=== PATIENT | female | born 1945 | race African-American/Black ===

== ENCOUNTER 2020-05-03 14:45 | Outpatient (CLI) | payer OTHER, SELFPAY ==
--- NOTE | ~2020-05-03 | MM_ITS ---
EXAMINATION: MM screening letty BI w robson HISTORY: Screening TECHNIQUE: Craniocaudal and mediolateral oblique 3-D tomosynthesis images were obtained and synthetic 2-D images were generated. CAD analysis was submitted and interpreted. COMPARISON: Comparison to multiple prior studies sequentially, with oldest reviewed study dated 02/19. BREAST PARENCHYMAL COMPOSITION: The breasts are heterogeneously dense, which may obscure small masses . FINDINGS: There are stable benign bilateral breast calcifications. There is no evidence of suspicious mass, calcification, or architectural distortion to suggest malignancy in either breast. There has b een no suspicious interval change. IMPRESSION: 1. No mammographic evidence of malignancy. 2. Recommend routine screening mammography in one year. BI-RADS Category 2: Benign finding(s). Reviewed, dictated and finalized at location A. ILIZER OPERATOR
== END 2020-05-03 14:46 | disposition home or self-care (01) ==
LOC: ANHIMG 14:50
PROVIDERS: PCP Internal Medicine; Visit Provider Internal Medicine
DX: Z12.31 Encounter for screening mammogram for malignant neoplasm of breast (principal)
CPT/HCPCS: 77063; 77067

== ENCOUNTER 2021-01-31 11:54 | Emergency (ER) | payer OTHER, SELFPAY ==
--- NOTE | ~2021-01-31 | CT_ITS ---
EXAMINATION: CTA chest PE protocol DATE: 02/01/2021 00:18 INDICATION: Chest pain. Shortness of breath. TECHNIQUE: Computed tomography angiography (CTA) of the chest was performed with 100 mL Omnipaque-350 intravenous contrast timed to evaluate the pulmonary arteries. Coronal maximum intensity projection 3D-reconstructions were created by the technologist. Automated exposure control and iterative reconst ruction technique were employed. The dose-length product was 453.90 mGy-cm. COMPARISON: CT abdomen and pelvis 11/13/2018 FINDINGS: There is mild atelectasis bilaterally. No pleural effusion. Cardiomegaly is noted. There ar e coronary artery calcifications. No pericardial effusion. There is no pulmonary embolus. Calcified l eft hilar lymph nodes are consistent with old granulomatous disease. There is mild right hilar and me diastinal lymphadenopathy, likely reactive. There are bridging endplate osteophytes at multiple level s in the spine, consistent with diffuse idiopathic skeletal hyperostosis (DISH). IMPRESSION: 1. No pulmonary embolus. Reviewed, dictated and finalized at location A. IMPRESSION: 1. No pulmonary embolus.
--- NOTE | ~2021-01-31 | XR_ITS ---
EXAMINATION: XR chest 2V DATE: 01/31/2021 12:13 INDICATION: Chest pain. TECHNIQUE: Frontal and lateral views of the chest were obtained. COMPARISON: Chest 2 views 10/16/2018 FINDINGS: There is mild atelectasis in left lower lung zone. No pleural effusion or pneumothorax. The heart size is normal. There are suture anchors in right humeral head. There is screw and wire fixati on of right acromion. IMPRESSION: 1. Mild atelectasis in left lower lung zone. Reviewed, dictated and finalized at location A.
--- NOTE | 2021-01-31 11:56 | ECG_ITS ---
Measurements Intervals [place] Rate: 51 P: 49 IN: 178 QRS: -13 QRSD: 103 T: 22 QT: 448 QTc: 413 Interpretive Statements SINUS BRADYCARDIA WITH SINUS ARRHYTHMIA BORDERLINE ECG Electronically Signed On 01-31-2021 14:03:00 CDT by Donn Oneil D.O.
[2021-01-31 12:08] VITALS: BP 148/46; PULSE 55; RESP 14; TEMP 36.8; O2SAT 99
[2021-01-31 12:44] LABS: Basophils Percent Auto 0.5 % (0.2-1.2); Eosinophils Absolute Auto 0.1 K/mm3 (0-0.3); Hemoglobin 9.2 g/dL (12.0-15.0); Immature Granulocyte Absolute 0.01 K/mm3 (0.00-0.031); Immature Granulocyte Percent A 0.3 % (0-0.5); Lymphocytes Absolute Auto 1.35 K/mm3 (0.9-3.2); Lymphocytes Percent Auto 33.8 % (18.3-44.2); Mean Corpuscular HGB Conc 30.7 g/dl (32-36); Mean Corpuscular Hemoglobin 29.1 pg (26-34); Mean Corpuscular Volume 94.9 fl (80-100); Mean Platelet Volume 10.1 fl (7.4-10.4); Monocytes Absolute Auto 0.5 K/mm3 (0.1-0.6); Monocytes Percent Auto 11.3 % (2.6-8.5); Neutrophils Absolute Auto 2.1 K/mm3 (1.3-6.7); Neutrophils Percent Auto 52.1 % (45.5-73.1); Platelet Count Result 223 k/mm3 (150-375); Red Blood Count 3.16 M/mm3 (4.2-5.4)
[2021-01-31 13:00] LABS: INR 1.1; Prothrombin Time 13.8 Seconds (11.1-14.7)
[2021-01-31 13:01] LABS: Partial Thromboplastin Time 29.3 SECONDS (22.3-36.8)
[2021-01-31 13:33] LABS: Anion Gap 7 mmol/L (8-16); Blood Urea Nitrogen 25 mg/dL (7-17); Calcium 9.5 mg/dL (8.4-10.2); Carbon Dioxide 29 mmol/L (22-30); Chloride 104 mmol/L (98-107); Estimated CRCL calculation 46 ml/min; Estimated Glomerular Filt Rate 59; Glucose 84 mg/dL (65-110); Potassium 4.6 mmol/L (3.4-5.0); Sodium 140 mmol/L (137-145)
[2021-01-31 13:45] LABS: Troponin I < 0.012 ng/mL (0.000-0.034)
[2021-01-31 16:28] VITALS: BP 151/54; PULSE 46; RESP 16; TEMP 36.5; O2SAT 95
[2021-01-31 18:31] VITALS: BP 150/48; PULSE 42; RESP 18; TEMP 36.3; O2SAT 98
[2021-01-31 19:08] LABS: Troponin I < 0.012 ng/mL (0.000-0.034)
--- NOTE | 2021-01-31 20:07 | ED.GENADULT ---
HPI - General Adult General Chief complaint: Chest Pain Stated complaint: chest pain x 1 week Time Seen by Provider: 01/31/21 19:32 Source: patient History of Present Illness HPI narrative: Patient is a 75 y/o female complaining of intermittent chest pain starting 1 week ago. She describes her chest pain as a discomfort . She rates it as 3-4/10. There is no known alleviating or exacerbating factor. She has no fever, cough or SOB. Related Data Home Medications Medication Instructions Recorded Confirmed aspirin 81 mg tablet,delayed 81 mg PO DAILY 04/27/19 11/23/20 release Allergies Allergy/AdvReac Type Severity Reaction Status Date / Time Penicillins Allergy Unknown Verified 08/02/16 16:46 Sulfa (Sulfonamide Allergy Unknown Verified 08/02/16 16:46 Antibiotics) Review of Systems Constitutional: Constitutional: Denies chills, Denies fever(s), Denies headache(s) and Denies weakness Eyes: Eyes: Denies blurry vision ENT: Denies headache(s) and Denies neck pain Cardiovascular: Cardiovascular: Reports chest pain and Denies dyspnea Respiratory: Respiratory: Denies cough and Denies dyspnea Gastrointestinal: Gastrointestinal: Denies abdominal pain, Denies diarrhea, Denies nausea and Denies vomiting Genitourinary: Genitourinary: Denies hematuria and Denies dysuria Musculoskeletal: Musculoskeletal: Denies back pain and Denies neck pain Neurologic: Denies headache(s) and Denies weakness PMFSH Family History Family History Mother Hypertension, Onset Age: 81 Family history of arthritis, Onset Age: 81 Family history of type 2 diabetes mellitus, Onset Age: 81 Family history of congestive heart failure, Onset Age: 81 Father Hypertension, Onset Age: 80 Family history of type 2 diabetes mellitus, Onset Age: 80 Sibling Hypertension Cerebrovascular accident Family history of type 2 diabetes mellitus Social History Social History Smoking status: Never smoker Second hand tobacco smoke exposure: No Alcohol intake: never Exam Const: General: no acute distress and well developed Orientation/consciousness: oriented to person, oriented to place, oriented to time and patient oriented x3 HENMT: Head: normocephalic Ears: external ears normal General nose exam: Normal external nose present Eyes: General: appearance normal, both eyes and all related structures Conjunctivae: conjunctivae normal Neck: Neck: normal visual inspection and full ROM Chest: Chest palpation & inspection: normal inspection of the chest and no tenderness Resp: Effort & Inspection: normal respiratory effort Auscultation: clear to auscultation bilaterally Cardio: Rate: bradycardic Rhythm: regular rhythm GI: GI Palp: No abdominal tenderness and Yes Soft to palpation Skin: General skin exam: normal color and turgor normal Neuro: General: oriented to person, oriented to place, oriented to time and patient oriented x3 Cognition (Neuro): normal cognition Extrem: General: normal to inspection, full ROM and no pedal edema Psych: Appearance: grossly normal Mental Status: mental status grossly normal Affect: normal affect Course Vital Signs Vital signs: Vital Signs Temperature 36.8 C 01/31/21 12:08 Pulse Rate 55 L 01/31/21 12:08 Respiratory Rate 14 01/31/21 12:08 Blood Pressure 148/46 H 01/31/21 12:08 Pulse Oximetry 99 01/31/21 12:08 Temperature 36.3 C L 01/31/21 18:31 Pulse Rate 68 02/01/21 03:07 Respiratory Rate 18 02/01/21 03:07 Blood Pressure 144/63 H 02/01/21 03:07 Pulse Oximetry 98 02/01/21 03:07 Medical Decision Making Vital Signs Vital Signs: Vital Signs Temperature 36.8 C 01/31/21 12:08 Pulse Rate 55 L 01/31/21 12:08 Respiratory Rate 14 01/31/21 12:08 Blood Pressure 148/46 H 01/31/21 12:08 Pulse Oximetry 99 01/31/21 12:08
[2021-01-31 20:12] LABS: Troponin I < 0.012 ng/mL (0.000-0.034)
[2021-01-31 20:21] VITALS: BP 189/62; PULSE 45; RESP 16; O2SAT 100
[2021-01-31 20:26] LABS: D Dimer 0.66 ug/mL (<0.48)
[2021-01-31 21:10] VITALS: BP 147/60; PULSE 62; RESP 18; O2SAT 97
[2021-02-01 03:07] VITALS: BP 144/63; PULSE 68; RESP 18; O2SAT 98
== END 2021-02-01 03:10 | disposition home or self-care (01) ==
PROVIDERS: Emergency Medicine; Emergency Provider Emergency Medicine; PCP Internal Medicine
DX: R07.9 Chest pain, unspecified (principal)
CPT/HCPCS: 36415; 71046; 71275; 80048; 84484; 85025; 85380; 85610; 85730; 93005; 99284; Q9967

== ENCOUNTER 2021-04-19 09:48 | Outpatient (CLI) | payer OTHER, SELFPAY ==
[2021-04-19 10:49] LABS: Uric Acid 6.2 mg/dL (2.5-7.5)
== END 2021-04-19 09:49 | disposition home or self-care (01) ==
PROVIDERS: PCP Internal Medicine; Visit Provider Internal Medicine
DX: Z13.89 Encounter for screening for other disorder (principal)
CPT/HCPCS: 36415; 84550

== ENCOUNTER 2021-05-11 16:05 | Outpatient (CLI) | payer OTHER, SELFPAY ==
--- NOTE | ~2021-05-11 | MM_ITS ---
EXAMINATION: MM screening letty BI w robson HISTORY: Screening TECHNIQUE: Craniocaudal and mediolateral oblique 3-D tomosynthesis images were obtained and synthetic 2-D images were generated. CAD analysis was submitted and interpreted. COMPARISON: Comparison to multiple prior studies sequentially, with oldest reviewed study dated 07/21. BREAST PARENCHYMAL COMPOSITION: The breasts are heterogeneously dense, which may obscure small masses . FINDINGS: There are developing punctate calcifications in the upper outer quadrant of the right breas t posteriorly. The left breast is stable without evidence for malignancy. IMPRESSION: 1. Developing clustered punctate calcifications upper outer quadrant of the right breast posteriorly. 2. Magnification views are recommended. BI-RADS Category 0: Incomplete: Needs additional imaging evaluation. Reviewed, dictated and finalized at location A. MILL SUPERVISOR IMPRESSION: 1. Developing clustered punctate calcifications upper outer quadrant of the rig ht breast posteriorly. 2. Magnification views are recommended. BI-RADS Category 0: Incomplete: Needs additional imaging evaluation.
== END 2021-05-11 16:06 | disposition home or self-care (01) ==
LOC: ANHIMG 16:07
PROVIDERS: PCP Internal Medicine; Visit Provider Internal Medicine
DX: Z12.31 Encounter for screening mammogram for malignant neoplasm of breast (principal); R92.8 Other abnormal and inconclusive findings on diagnostic imaging of breast
CPT/HCPCS: 77063; 77067

== ENCOUNTER 2021-06-06 12:01 | Outpatient (CLI) | payer OTHER, SELFPAY ==
--- NOTE | ~2021-06-06 | MM_ITS ---
EXAMINATION: MM diagnostic mammo unilat RT HISTORY: Follow-up right breast calcifications TECHNIQUE: Additional 3-D tomosynthesis images of the right breast were performed and synthetic 2-D i mages were generated. CAD analysis was submitted and interpreted. COMPARISON: Comparison to multiple prior studies sequentially, with oldest reviewed study dated 08/17. BREAST PARENCHYMAL COMPOSITION: Breast composed of scattered areas of fibroglandular density. FINDINGS: There is a new cluster of indeterminate calcifications centered in the upper outer quadrant of the right breast posteriorly. There are no suspicious masses or architectural distortion. IMPRESSION: 1. New cluster of indeterminate right breast calcifications, upper outer quadrant. 2. Stereotactic right breast biopsy recommended. BI-RADS category 4, suspicious findings. Reviewed, dictated and finalized at location A. ITE ADMIN IMPRESSION: 1. New cluster of indeterminate right breast calcifications, upper outer quadra nt. 2. Stereotactic right breast biopsy recommended. BI-RADS category 4, suspicious findings.
== END 2021-06-06 12:02 | disposition home or self-care (01) ==
LOC: ANHIMG 12:05
PROVIDERS: PCP Internal Medicine; Visit Provider Internal Medicine
DX: R92.1 Mammographic calcification found on diagnostic imaging of breast (principal); R92.8 Other abnormal and inconclusive findings on diagnostic imaging of breast
CPT/HCPCS: 77065

== ENCOUNTER 2021-06-16 10:13 | Outpatient (CLI) | payer OTHER, SELFPAY ==
--- NOTE | ~2021-06-16 | MM_ITS ---
MM stereotactic bx RT, MM post biopsy diagnostic RT, MM stereotactic specimen RT EXAMINATION: MM ster eotactic bx RT, MM post biopsy diagnostic RT, MM stereotactic specimen RT DATE: Raymundo Downs M.D. INDICATION: Abnormal calcifications in the right breast. Stereotactic core biopsy is requested evalu ate for malignancy. TECHNIQUE AND FINDINGS: The risks and potential benefits of the procedure were discussed with the patient and written informe d consent was obtained. The patient was placed in the prone position clustered at the table with the right breast in craniocaudal compression, and the area of interest was localized and targeted utiliz ing digital imaging with stereotaxis. After sterile preparation of the skin, 1% lidocaine was utilized for local anesthesia at the skin pun cture site and 1% lidocaine with epinephrine was utilized for deeper local anesthesia/is about the bi opsy site. A 9G [email or web address] vacuum assisted biopsy needle was advanced to the level of the calcification o f interest from a cephalad approach utilizing stereotactic guidance and a total of 6 tissue core biop sies were obtained. A specimen radiograph demonstrates that the calcifications of interest are included within the tissue cores. A tissue marker clip was then placed at the biopsy site. The needle was removed and hemosta sis was achieved. The patient tolerated the procedure well and there is no evidence of significant i mmediate complication. The patient was given verbal as well as written postprocedural instructions p rior to discharge from the department. Tissue cores were submitted to surgical pathology for histolo gic analysis. A 2-view right unilateral digital mammogram was obtained post procedure and this demonstrates that th e tissue marker clip is in expected position.] IMPRESSION: 1. Successful stereotactic biopsy of calcifications in the upper outer quadrant of the right breast, followed by tissue marker clip placement. Please refer to pathology report for histologic analysis. Reviewed, dictated and finalized at location A. CAL SOCIAL WORKER IMPRESSION: 1. Successful stereotactic biopsy of calcifications in the upper outer quadran t of the right breast, followed by tissue marker clip placement. Please refer to pathology report for histologic analysis. IMPRESSION: 1. Successful stereotactic biopsy of calcifications in the upper outer quadran t of the right breast, followed by tissue marker clip placement. Please refer to pathology report for histologic analysis.
== END 2021-06-16 10:14 | disposition home or self-care (01) ==
PROVIDERS: PCP Internal Medicine; Visit Provider Internal Medicine
DX: R92.8 Other abnormal and inconclusive findings on diagnostic imaging of breast (principal); D05.11 Intraductal carcinoma in situ of right breast
CPT/HCPCS: 19081; 77065; 88305; 88342; A4648

== ENCOUNTER → 2021-07-18 11:54 | Outpatient (CLI) | payer OTHER, SELFPAY ==
--- NOTE | ~2021-07-18 | XR_ITS ---
EXAMINATION: XR knee RT 3V DATE: 07/18/2021 12:31 INDICATION: Right knee pain TECHNIQUE: Three views of the right knee were obtained. COMPARISON: None. FINDINGS: Alignment is normal. No fracture or osteochondral lesion. There is advanced osteoarthritis of the lateral compartment and moderate osteoarthritis of the medial and patellofemoral compartments. No joint effusion/synovitis. Soft tissues are unremarkable. IMPRESSION: 1. 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 Reviewed, dictated and finalized at location F. P CUTTER
--- NOTE | ~2021-07-18 | XR_ITS ---
EXAMINATION: XR hand LT min 3V INDICATION: Left hand pain and swelling TECHNIQUE: Three views of the left hand are obtained on four radiographs. COMPARISON: None available FINDINGS: There is no fracture, dislocation, or subluxation. There is moderate osteoarthritis of mult iple interphalangeal joints as well as at the first carpometacarpal joint. Soft tissues are unremarka ble. IMPRESSION: 1. Polyarticular osteoarthritis. Reviewed, dictated and finalized at location F. OND SETTER
--- NOTE | ~2021-07-18 | XR_ITS ---
EXAMINATION: XR knee LT 3V DATE: 07/18/2021 12:30 INDICATION: Left knee pain TECHNIQUE: Three views of the left knee were obtained. COMPARISON: None. FINDINGS: Alignment is normal. No fracture or osteochondral lesion. There is moderate osteoarthritis of the medial and lateral compartments and severe osteoarthritis of the lateral patellofemoral compar tment. No joint effusion/synovitis. Calcified atherosclerosis is noted. IMPRESSION: 1. Tricompartmental osteoarthritis, severe in the lateral patellofemoral compartment. Reviewed, dictated and finalized at location F. ESSIONAL SYSTEM ADMINISTRATOR IMPRESSION: 1. Tricompartmental osteoarthritis, severe in the lateral patellofemoral compar tment.
== END ==
PROVIDERS: PCP Internal Medicine; Visit Provider Internal Medicine
DX: M19.042 Primary osteoarthritis, left hand (principal); M17.0 Bilateral primary osteoarthritis of knee
CPT/HCPCS: 73130; 73562

== ENCOUNTER 2021-11-10 09:07 | Outpatient (CLI) | payer OTHER, SELFPAY ==
[2021-11-10 09:24] LABS: Basophils Percent Auto 0.5 % (0.2-1.2); Eosinophils Absolute Auto 0.1 K/mm3 (0-0.3); Eosinophils Percent Auto 2.2 % (0-4.4); Hematocrit 32.2 % (37.0-47.0); Hemoglobin 9.9 g/dL (12.0-15.0); Lymphocytes Absolute Auto 1.01 K/mm3 (0.9-3.2); Lymphocytes Percent Auto 27.5 % (18.3-44.2); Mean Corpuscular HGB Conc 30.7 g/dl (32-36); Mean Corpuscular Hemoglobin 29.1 pg (26-34); Mean Corpuscular Volume 94.7 fl (80-100); Mean Platelet Volume 9.7 fl (7.4-10.4); Monocytes Absolute Auto 0.4 K/mm3 (0.1-0.6); Monocytes Percent Auto 10.6 % (2.6-8.5); Neutrophils Absolute Auto 2.2 K/mm3 (1.3-6.7); Neutrophils Percent Auto 59.2 % (45.5-73.1); Platelet Count Result 206 k/mm3 (150-375); Red Cell Distribution Width 14.7 % (11.5-14.5); White Blood Count 3.7 K/mm3 (4.5-10.0)
[2021-11-10 10:47] LABS: Immature Reticulocyte Fraction 11.6 % (3.0-15.9); Reticulocyte Hemoglobin Conten 32.7 pg (28.2-35.7); Reticulocyte Percent 1.24 % (0.7-4.3); Reticulocytes Absolute 0.04 B/L (32.2-175.7)
[2021-11-10 12:44] LABS: Iron 66 ug/dL (37-170)
[2021-11-10 12:53] LABS: Alanine Aminotransferase 10 U/L (6-35); Alkaline Phosphatase 70 U/L (38-126); Anion Gap 8 mmol/L (8-16); Aspartate Amino Transferase 22 U/L (14-36); Bilirubin,Total 0.2 mg/dL (0.2-1.3); Blood Urea Nitrogen 26 mg/dL (7-17); Calcium 9.4 mg/dL (8.4-10.2); Carbon Dioxide 29 mmol/L (22-30); Chloride 101 mmol/L (98-107); Estimated Glomerular Filt Rate > 60; Glucose 119 mg/dL (65-110); Lactate Dehydrogenase 492 U/L (313-618); Percent Iron Saturation 20 % (20-50); Potassium 4.8 mmol/L (3.4-5.0); Sodium 138 mmol/L (137-145)
[2021-11-10 14:16] LABS: Folic Acid > 20.0 ng/mL (2.76->20); Vitamin B12 > 1000.0 pg/mL (239-931)
== END 2021-11-10 09:08 | disposition home or self-care (01) ==
PROVIDERS: PCP Internal Medicine; Visit Provider Internal Medicine Hematology & Oncology
DX: D64.9 Anemia, unspecified (principal)
CPT/HCPCS: 36415; 80053; 82607; 82728; 82746; 83540; 83550; 83615; 85025; 85046

== ENCOUNTER 2021-12-01 01:18 | Day surgery (SDC) | payer OTHER, SELFPAY ==
[2021-12-01] VITALS (7 sets, daily range): BP systolic 145–160; BP diastolic 43–59; PULSE 45–53; RESP 12–14; TEMP 36.2; O2SAT 96–100; BMI 30.8
[2021-12-01 07:53] LABS: Basophils Percent Auto 0.4 % (0.2-1.2); Eosinophils Absolute Auto 0.1 K/mm3 (0-0.3); Eosinophils Percent Auto 2.4 % (0-4.4); Hematocrit 31.9 % (37.0-47.0); Hemoglobin 9.8 g/dL (12.0-15.0); Immature Granulocyte Absolute 0.02 K/mm3 (0.00-0.031); Immature Granulocyte Percent A 0.4 % (0-0.5); Lymphocytes Absolute Auto 1.38 K/mm3 (0.9-3.2); Lymphocytes Percent Auto 25.4 % (18.3-44.2); Mean Corpuscular HGB Conc 30.7 g/dl (32-36); Mean Corpuscular Hemoglobin 29.4 pg (26-34); Mean Corpuscular Volume 95.8 fl (80-100); Mean Platelet Volume 10.7 fl (7.4-10.4); Monocytes Absolute Auto 0.7 K/mm3 (0.1-0.6); Monocytes Percent Auto 12.2 % (2.6-8.5); Neutrophils Absolute Auto 3.2 K/mm3 (1.3-6.7); Neutrophils Percent Auto 59.2 % (45.5-73.1); Platelet Count Result 260 k/mm3 (150-375); Red Blood Count 3.33 M/mm3 (4.2-5.4); Red Cell Distribution Width 14.7 % (11.5-14.5); White Blood Count 5.4 K/mm3 (4.5-10.0)
[2021-12-01 08:00] LABS: INR 1.1; Prothrombin Time 13.9 Seconds (11.1-14.7)
--- NOTE | 2021-12-01 08:01 | WPDMODSED ---
Moderate Sedation Note-Pt Data Patient Data Diagnosis: anemia Present Complaint: anemia Procedure to be performed/Plan: bone marrow biopsy Allergies Allergy/AdvReac Type Severity Reaction Status Date / Time Penicillins Allergy Unknown Rash Verified 12/01/21 07:21 Sulfa (Sulfonamide Allergy Unknown Rash Verified 12/01/21 07:21 Antibiotics) Home Medications Medication Instructions Recorded Confirmed Type aspirin 81 mg tablet,delayed 81 mg PO DAILY 04/27/19 11/20/21 History release (Adult Low Dose Aspirin) pen needle, diabetic 31 gauge x #100 ea 08/19/19 11/20/21 Rx 5/16 (BD Ultra-Fine Short Pen Needle) blood-glucose meter (Contour Meter) #1 ea 08/26/19 11/20/21 Rx lancets 21 gauge (Color Lancets) #300 ea 08/26/19 11/20/21 Rx insulin glargine 100 unit/mL (3 20 unit (0.2 mL) subcut DAILY #15 09/27/20 11/20/21 Rx mL) subcutaneous pen (Lantus syringes Solostar U-100 Insulin) metformin 500 mg tablet 500 mg PO BID #180 tabs 11/23/20 11/20/21 Rx simvastatin 20 mg tablet 20 mg PO DAILY #90 tabs 12/15/20 11/20/21 Rx blood sugar diagnostic (Contour #300 ea 04/24/21 11/20/21 Rx Next Test Strips) atenolol 50 mg tablet 50 mg PO DAILY #90 tabs 07/20/21 11/20/21 Rx escitalopram oxalate 5 mg tablet 5 mg PO DAILY #90 tabs 07/20/21 11/20/21 Rx losartan 100 1 tablet PO DAILY #90 tabs 07/20/21 11/20/21 Rx mg-hydrochlorothiazide 25 mg tablet pioglitazone 45 mg tablet 45 mg PO DAILY #90 tabs 07/20/21 11/20/21 Rx Sedation/Anesthesia: No previous sedation/anesthesia problems (including family history). [facility] Family History Family History Mother Hypertension, Onset Age: 81 Family history of arthritis, Onset Age: 81 Family history of type 2 diabetes mellitus, Onset Age: 81 Family history of congestive heart failure, Onset Age: 81 Father Hypertension, Onset Age: 80 Family history of type 2 diabetes mellitus, Onset Age: 80 Sibling Hypertension Cerebrovascular accident Family history of type 2 diabetes mellitus Social History Social History Smoking status: Never smoker Second hand tobacco smoke exposure: No Alcohol intake: never Mod Sed Physical Exam Physical Exam Pre Procedural Exam: Normal: Eyes, Throat, Lungs, Heart Rhythm and Abdomen and Variation: Appearance (obese) and Heart Rate (bradycardia) Hours since solid foods: 11 Hours since liquid intake: 11 Mallampati Classification: class II Internal Medicine - PN: Obj Da Vital Signs Vital Signs: Vital Signs - 24 hr 12/01/21 07:27 Temperature 97.1 F L Pulse Rate 52 L Respiratory Rate 12 Blood Pressure 160/59 H Pulse Oximetry 100 Oxygen Delivery Room Air Labs CBC & Chem 7: 12/01/21 07:20 Labs: Laboratory Results - last 24 hr 12/01/21 12/01/21 07:20 07:20 WBC 5.4 RBC 3.33 L Hgb 9.8 L Hct 31.9 L MCV 95.8 MCH 29.4 MCHC 30.7 L RDW 14.7 H Plt Count 260 MPV 10.7 H Immature Gran % (Auto) 0.4 Neut % (Auto) 59.2 Lymph % (Auto) 25.4 [place] % (Auto) 12.2 H Eos % (Auto) 2.4 Baso % (Auto) 0.4 Lymph # (Auto) 1.38 [place] # (Auto) 0.7 H Eos # (Auto) 0.1 Baso # (Auto) 0.0 Abs Immat Gran (auto) 0.02 Absolute Neuts (auto) 3.2 Absolute Nucleated RBC 0.0 Nucleated RBC % 0.0 PT 13.9 INR 1.1 ASA Classification/Sedation ASA Classification/Sedation ASA Class: II Emergent: No Risks: Risks, benefits and alternatives explained and patient/family accepted plan for sedation. Patient re-evaluated immediately prior to sedation.
== END 2021-12-01 11:15 | disposition home or self-care (01) ==
PROVIDERS: Absent Provider Internal Medicine Hematology & Oncology; PCP Internal Medicine; Visit Provider Radiology Diagnostic Radiology
DX: D64.9 Anemia, unspecified (principal)
CPT/HCPCS: 36415; 38222; 85025; 85610; 88184; 88185; 88305; 88311; 88313; 88341; 88342; J1642; J2310; J3010; J7040

== ENCOUNTER 2022-04-11 10:27 | Observation (INO) | payer OTHER, SELFPAY ==
[2022-04-11] VITALS (12 sets, daily range): BP systolic 117–176; BP diastolic 43–97; PULSE 44–93; RESP 12–17; TEMP 36.3–36.6; O2SAT 97–100; BMI 30.2
--- NOTE | ~2022-04-11 | XR_ITS ---
EXAMINATION: XR chest 2V DATE: 04/11/2022 11:13 INDICATION: Centralized chest pain. Hypertension and congestive heart failure. TECHNIQUE: PA and lateral views of the chest were obtained. COMPARISON: Chest radiograph and CT dated 01/31/2021 FINDINGS: Persistent mild left basilar streaky atelectasis at the lingula. No new airspace opacities, pulmonary edema, pleural effusion or pneumothorax. Mild cardiomegaly. Fixation screws and cerclage wires at th e right acromion. Suture anchors at the right humeral head likely for prior rotator cuff repair. IMPRESSION: 1. Unchanged mild left basilar atelectasis/scarring at the lingula. 2. Mild cardiomegaly. Reviewed, dictated and finalized at location B. ERN SCRATCHER
--- NOTE | ~2022-04-11 | NM_ITS ---
EXAMINATION: NM tamika stress w perfusion DATE: 04/12/2022 14:46 INDICATION: Chest pain. TECHNIQUE: Rest images were obtained following intravenous administration of 10.2 mCi Tc99m tetrofosm in (Myoview). The patient was infused intravenously with Lexiscan (regadenoson). Then, 31.9 mCi Tc99m tetrofosmin (Myoview) was administered intravenously, and stress images were obtained. Data was diann nstructed into short axis and horizontal and vertical long axis SPECT images. Gated SPECT images were also obtained. COMPARISON: Chest CT 01/31/2021 FINDINGS: There is no definite reversible or fixed perfusion abnormality to suggest ischemia or infar ction. There is no segmental wall motion abnormality. Left ventricular ejection fraction measures 7 0%. IMPRESSION: 1. No definite ischemia or infarct. 2. Normal left ventricular ejection fraction measuring 70%. Reviewed, dictated and finalized at location A. AWER
--- NOTE | 2022-04-11 10:28 | ECG_ITS ---
Measurements Intervals [place] Rate: 47 P: 67 PA: 177 QRS: -13 QRSD: 94 T: 35 QT: 434 QTc: 385 Interpretive Statements SINUS BRADYCARDIA DELAYED PRECORDIAL R/S TRANSITION BORDERLINE T WAVE ABNORMALITY- ANTERIOR LEADS ABNORMAL ECG COMPARED TO ECG 01/31/2021 12:02:30 NO SIGNIFICANT CHANGES Electronically Signed On 04-11-2022 12:12:50 CREDIT REPRESENTATIVE by Donn Oneil D.O.
[2022-04-11 10:53] LABS: Basophils Percent Auto 0.6 % (0.2-1.2); Eosinophils Absolute Auto 0.1 K/mm3 (0-0.3); Eosinophils Percent Auto 3.4 % (0-4.4); Hematocrit 33.4 % (37.0-47.0); Hemoglobin 10.4 g/dL (12.0-15.0); Immature Granulocyte Absolute 0.01 K/mm3 (0.00-0.031); Immature Granulocyte Percent A 0.3 % (0-0.5); Lymphocytes Absolute Auto 1.18 K/mm3 (0.9-3.2); Lymphocytes Percent Auto 33.8 % (18.3-44.2); Mean Corpuscular HGB Conc 31.1 g/dl (32-36); Mean Corpuscular Hemoglobin 29.7 pg (26-34); Mean Corpuscular Volume 95.4 fl (80-100); Mean Platelet Volume 10.8 fl (7.4-10.4); Monocytes Absolute Auto 0.4 K/mm3 (0.1-0.6); Monocytes Percent Auto 12.3 % (2.6-8.5); Neutrophils Absolute Auto 1.7 K/mm3 (1.3-6.7); Neutrophils Percent Auto 49.6 % (45.5-73.1); Platelet Count Result 213 k/mm3 (150-375); Red Cell Distribution Width 14.6 % (11.5-14.5); White Blood Count 3.5 K/mm3 (4.5-10.0)
[2022-04-11 10:57] LABS: Alanine Aminotransferase 13 U/L (6-35); Albumin Level 4.2 g/dL (3.5-5.1); Alkaline Phosphatase 78 U/L (38-126); Anion Gap 13 mmol/L (8-16); Aspartate Amino Transferase 27 U/L (14-36); Bilirubin,Total 0.4 mg/dL (0.2-1.3); Blood Urea Nitrogen 27 mg/dL (7-17); Calcium 9.3 mg/dL (8.4-10.2); Carbon Dioxide 26 mmol/L (22-30); Chloride 99 mmol/L (98-107); Estimated Glomerular Filt Rate 59; Glucose 177 mg/dL (65-110); INR 1.1; Lipase 60 U/L (23-300); Partial Thromboplastin Time 30.6 SECONDS (22.3-36.8); Sodium 138 mmol/L (137-145)
[2022-04-11 11:07] LABS: Troponin I < 0.012 ng/mL (0.000-0.034)
--- NOTE | 2022-04-11 13:49 | ED.CHESTPAIN ---
HPI - Chest Pain General Chief Complaint: Chest Pain Stated Complaint: cp Time Seen by Provider: 04/11/22 13:27 Source: patient and EMS Mode of arrival: EMS Limitations: no limitations History of Present Illness HPI narrative: 76 years old -[place] female referred to our emergency room by her family physician, ambulance because of chest pain, abnormal EKG. Patient tested positive for the flu for 5 weeks ago, since that time been having intermittent retrosternal chest discomfort. Got worse over the last 7 days has been steady. Today was worse than ever, 8 out of 10. Patient went see her family physician and was told to go to the emergency room immediately by ambulance because of abnormal EKG. History of diabetes, hypertension, hyperlipidemia. Patient on aspirin. She denies any fever, chills, nausea, vomiting, shortness of breath. Related Data Home Medications Medication Instructions Recorded Confirmed aspirin 81 mg tablet,delayed 81 mg PO DAILY 04/27/19 04/11/22 release (Adult Low Dose Aspirin) carvedilol 12.5 mg tablet (Coreg) 12.5 mg PO Q12H 04/11/22 04/11/22 dapagliflozin 10 mg tablet 10 mg PO DAILY 04/11/22 04/11/22 (Farxiga) sacubitril 49 mg-valsartan 51 mg 1 tablet PO BID 04/11/22 04/11/22 tablet (Entresto) Allergies Allergy/AdvReac Type Severity Reaction Status Date / Time Penicillins Allergy Unknown Rash Verified 04/11/22 13:03 Sulfa (Sulfonamide Allergy Unknown Rash Verified 04/11/22 13:03 Antibiotics) Review of Systems Review of Systems: All systems reviewed & are unremarkable except as noted in HPI and below PMFSH Past Medical History Medical History (Updated 04/11/22 @ 15:40 by West Lockhart MD) Arthritis Chronic anemia Gastroesophageal reflux disease Heart failure with preserved ejection fraction Hyperlipidemia Hypertension Insulin dependent diabetes mellitus Squamous cell carcinoma of tongue Surgical History Surgical History (Updated 04/11/22 @ 15:20 by Nevaeh Le PA-C) History of cholecystectomy History of hysterectomy History of tonsillectomy Family History Family History Mother Hypertension, Onset Age: 81 Family history of arthritis, Onset Age: 81 Family history of type 2 diabetes mellitus, Onset Age: 81 Family history of congestive heart failure, Onset Age: 81 Father Hypertension, Onset Age: 80 Family history of type 2 diabetes mellitus, Onset Age: 80 Sibling Hypertension Cerebrovascular accident Family history of type 2 diabetes mellitus Social History Social History Smoking status: Never smoker Second hand tobacco smoke exposure: No Alcohol intake: never Exam Narrative: General appearance: Well-developed, well-nourished Skin: Normal color Head: Normocephalic, nontraumatic Eyes: Clear conjunctiva ENT: Oropharynx normal, ears normal, nose normal Neck: Supple, nontender Chest and respiratory: Airway patent, no respiratory distress, no accessory muscle use Heart: Regular rate/rhythm Abdomen: Soft, nontender, no organomegaly, quiet bowel sounds Vascular: Normal peripheral pulses, normal capillary refill. Musculoskeletal: Normal range of motion, nontender back Neurologic: Alert and oriented ?3, [place] ATTENDANT is normal as tested, no gross motor deficit Course Vital Signs Vital signs: Vital Signs Temperature 36.3 C L 04/11/22 11:01 Pulse Rate 47 L 04/11/22 11:01 Respiratory Rate 16 04/11/22 11:01 Blood Pressure 175/66 H 04/11/22 11:01 Pulse Oximetry 100 04/11/22 11:01 Temperature 36.3 C L 04/11/22 11:01
[2022-04-11 14:23] LABS: Troponin I < 0.012 ng/mL (0.000-0.034)
[2022-04-11] MEDS: NITROGLYCERIN OINTMENT 1 INCH DOSE TRANSDERM ×2 (15:08→18:53)
[2022-04-11] MEDS: ASPIRIN 81 MG CHEWABLE TABLET 324 MG PO (15:08)
--- NOTE | 2022-04-11 15:30 | PM.IMHP ---
H&P: HPI History of Present Illness Date/Time: 04/11/22 15:30 Chief Complaint: Chest discomfort. Narrative: This is a 76-year-old female with heart failure with preserved ejection fraction, hypertension, hyperlipidemia, chronic anemia, chronic kidney disease, and insulin dependent diabetes who presented to the ED for evaluation of chest discomfort. She tested positive for influenza little over a month ago and since that time she has had intermittent, self-limiting mid chest discomfort which has not been severe enough for her to require analgesics. She denies that is in overt pain in his more like a very mild heaviness or pressure like sensation. Occasionally she has mild shortness of breath and sweats with that but not all the time. She has not noticed a pattern as to when it occurs and specifically denies that is related to exertion. The symptoms have been occurring more frequently and lasting longer over the past 1 week and her family physician instructed her to come to the ER for evaluation. EKG showed sinus bradycardia with delayed precordial R/S transition and borderline T-wave abnormalities in anterior leads although this tracing is similar to an EKG obtained last year. Her initial troponin was negative though given her risk factor she is being admitted for Cardiology consultation and to rule out acute coronary syndrome. At the time my evaluation her discomfort has improved significantly after receiving aspirin and nitropaste in the emergency department. The discomfort is not reproducible on palpation of the chest wall. She has not had any GI symptoms and she specifically denies bloating, belching, and indigestion. She does however mention that she passed a fairly large soft, dark stool 2 weeks ago but none since that time. She thought the stool was dark due to the fact that she is on iron at home. Review of Systems Review of Systems: Twelve systems were reviewed and are negative except for as per HPI. [facility] Past Medical History Medical History (Updated 04/11/22 @ 22:35 by Nevaeh Le PA-C) Arthritis Chronic anemia Chronic kidney disease, stage 3 Heart failure with preserved ejection fraction Hyperlipidemia Hypertension Insulin dependent diabetes mellitus Squamous cell carcinoma of tongue Surgical History Surgical History History of cholecystectomy History of hysterectomy History of tonsillectomy Family History Family History Mother Hypertension, Onset Age: 81 Family history of arthritis, Onset Age: 81 Family history of type 2 diabetes mellitus, Onset Age: 81 Family history of congestive heart failure, Onset Age: 81 Father Hypertension, Onset Age: 80 Family history of type 2 diabetes mellitus, Onset Age: 80 Sibling Hypertension Cerebrovascular accident Family history of type 2 diabetes mellitus Social History Social History (Updated 04/11/22 @ 22:32 by Nevaeh Le PA-C) Social History: Healthcare power of disability attorney: Jm Storey, nephew. Code status: Full code. Smoking status: Never smoker Second hand tobacco smoke exposure: No Alcohol intake: never Substance use: never Lack of Transportation: No Lack of Food: Never True Current Housing: I Have Housing Concerned About Future Housing: No Difficulty Paying Gas/Electric Bills: No Difficulty Paying for Meds: No Currently Unemployed: No Education: High School Diploma/GED Difficulty w/ Childcare or Family Care: No Additional living arrangements comments: The patient lives in her own apartment in [place]. 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 Spiritual care concerns: Yes (would like communion when offered) Meds Home Medications and Allergies Home Medications Medication Instructions Recorded Confirmed Type aspirin 81 mg tablet,delayed 81 mg
[2022-04-11 16:47] LABS: Troponin I < 0.012 ng/mL (0.000-0.034)
--- NOTE | 2022-04-11 17:19 | PC.NURSE ---
[facility] food tray ordered
--- NOTE | 2022-04-11 18:29 | ADMGEN ---
This patient, Keerthi Lilly, was admitted to IMU Room 214-01. Patient/family oriented to hospital policies and general routines including ID bracelet, bed and alarms, visiting hours, pain management, procedures, bathroom and other care routines, personal items, smoking policy, room service/diet, and visiting hours. Information on how to activate the Rapid Response Team has been discussed. Patient/Family are encouraged to report perceived risks to care and to ask questions if they do not understand what they are told or what they should do.
[2022-04-11 20:36] LABS: Glucose Point of Care 173 mg/dl (65-105)
[2022-04-11 22:46] LABS: Troponin I < 0.012 ng/mL (0.000-0.034)
[2022-04-11] MEDS: INSULIN GLARGINE (*BKC) 100 UNITS/ML 10 UNITS SUB-Q (23:38)
[2022-04-12] VITALS (9 sets, daily range): BP systolic 125–149; BP diastolic 41–89; PULSE 44–85; RESP 16–20; TEMP 36.1–36.8; O2SAT 100
[2022-04-12 05:15] LABS: Hematocrit 30.1 % (37.0-47.0); Hemoglobin 9.6 g/dL (12.0-15.0); Mean Corpuscular HGB Conc 31.9 g/dl (32-36); Mean Corpuscular Hemoglobin 29.1 pg (26-34); Mean Corpuscular Volume 91.2 fl (80-100); Mean Platelet Volume 10.4 fl (7.4-10.4); Platelet Count Result 187 k/mm3 (150-375); Red Cell Distribution Width 14.6 % (11.5-14.5); White Blood Count 3.5 K/mm3 (4.5-10.0)
[2022-04-12 05:19] LABS: Alanine Aminotransferase 12 U/L (6-35); Albumin Level 3.7 g/dL (3.5-5.1); Alkaline Phosphatase 64 U/L (38-126); Anion Gap 10 mmol/L (8-16); Aspartate Amino Transferase 25 U/L (14-36); Bilirubin,Total 0.3 mg/dL (0.2-1.3); Blood Urea Nitrogen 24 mg/dL (7-17); Calcium 9.3 mg/dL (8.4-10.2); Carbon Dioxide 29 mmol/L (22-30); Chloride 101 mmol/L (98-107); Estimated CRCL calculation 41 ml/min; Estimated Glomerular Filt Rate 53; Glucose 168 mg/dL (65-110); Magnesium 1.7 mg/dL (1.6-2.3); Potassium 4.7 mmol/L (3.4-5.0); Sodium 140 mmol/L (137-145)
[2022-04-12 05:26] LABS: Hemoglobin A1C 7.8 % (<5.7)
[2022-04-12 07:50] LABS: Glucose Point of Care 174 mg/dl (65-105)
[2022-04-12] MEDS: ASPIRIN 81 MG ENTERIC TABLET PO (08:41)
[2022-04-12] MEDS: LOSARTAN POTASSIUM 100 MG TABLET PO (08:42)
[2022-04-12] MEDS: atenoloL 50 MG TABLET PO (08:42)
[2022-04-12] MEDS: SIMVASTATIN 20 MG TABLET PO (08:42)
[2022-04-12] MEDS: ESCITALOPRAM OXALATE 5 MG TABLET PO (08:42)
--- NOTE | 2022-04-12 10:09 | EST_ITS ---
Patient Info Name: Keerthi Lilly Age: 76 years : 1945 Gender: Female Ht: 67 in Wt: 192 lbs BSA: 2.05 m2 Exam Date: 04/12/2022 1:38 PM Exam Location: [facility] Stress Patient Status: Inpatient Admit Date: 04/11/2022 Staff Ordering Physician: Donis Hernandez MD Attending Provider: Donis Hernandez MD Exercise Technologist: Marlene Mccain RDCS Nurse: ERWIN PRITCHARD NP Exam Type: CA stress tamika w NM Study Info Indications R07.9 - Chest pain, unspecified A regadenoson stress test was performed. Summary 1. No ST-T wave changes diagnostic of ischemia with Lexiscan. 2. Please correlate with nuclear medicine images, reported separately. Protocol: Lexiscan Stress ECG Details Stage: REST Duration (min): 1 min : 43 sec HR (bpm): 47 SBP (mmHg): 200 DBP (mmHg): 76 Stage: REST Duration (min): 4 min : 40 sec HR (bpm): 51 SBP (mmHg): 189 DBP (mmHg): 74 Stage: STAGE 1 Duration (min): 0 min : 59 sec HR (bpm): 65 SBP (mmHg): 189 DBP (mmHg): 74 Stage: RECOVERY Duration (min): 1 min : 0 sec HR (bpm): 69 SBP (mmHg): 169 DBP (mmHg): 67 Stage: RECOVERY Duration (min): 2 min : 0 sec HR (bpm): 66 SBP (mmHg): 157 DBP (mmHg): 64 Stage: RECOVERY Duration (min): 3 min : 0 sec HR (bpm): 65 SBP (mmHg): 159 DBP (mmHg): 62 Stage: RECOVERY Duration (min): 3 min : 3 sec HR (bpm): 66 SBP (mmHg): 159 DBP (mmHg): 62 Rest HR: 51 bpm Peak HR: 71 bpm Rest Sys BP: 189 mmHg Peak Sys BP: 169 mmHg Max Pred HR: 145 bpm % Max Pred HR: 49 % Target HR: 123 bpm Max RPP: 11,999 bpm*mmHg Total Time: 1 min : 0 sec Rest De Oliveira BP: 74 mmHg Peak De Oliveira BP: 67 mmHg Total Dose: 0.4 mg Resting ECG Sinus bradycardia with sinus arrhythmia. Stress ECG SInus rhythm. No ST-T wave changes diagnostic of ischemia with Lexiscan. Arrhythmias Occasional PACs. Report Signatures
--- NOTE | 2022-04-12 10:49 | PM.DS ---
DS: Admitting Diagnosis Discharge Date 04/12/22 Admitting Diagnosis chest pain DS: Discharge Diagnosis Discharge Diagnosis (1) Chronic kidney disease, stage 3: Code(s): N18.30 - Chronic kidney disease, stage 3 unspecified Status: Acute (2) Uncontrolled hypertension: Code(s): I10 - Essential (primary) hypertension Status: Acute (3) Gastroesophageal reflux disease: Code(s): K21.9 - Gastro-esophageal reflux disease without esophagitis Status: Acute (4) Heart failure with preserved ejection fraction: Code(s): I50.30 - Unspecified diastolic (congestive) heart failure Status: Acute (5) Essential (primary) hypertension: Code(s): I10 - Essential (primary) hypertension Status: Acute (6) Type 2 diabetes mellitus with hyperglycemia, with long-term current use of insulin: Code(s): E11.65 - Type 2 diabetes mellitus with hyperglycemia; Z79.4 - roasterman (current) use of insulin Status: Acute DS: Summary Hospital Course Hospital Course: 76-year-old female admitted to the hospital history of hypertension hyperlipidemia chronic evaluated for chest pain shortness Amish breath. Patient's hemoglobin A1c 7.8 hemoglobin 9.6 creatinine 1.2 noted patient's cardiac workup has negative troponins and normal EKG within normal limits patient seen by Cardiology scheduled to be discharged home they would like to do a stress test before discharge. Patient has no history of any dark stools or hematemesis anemia is chronic will continue on home medications patient advised to follow with primary care physician 1 week keep a close eye on blood pressure current systolic pressure is 142/80 manually.pts lexican negative dc home Status at Discharge Functional status at discharge: independent ambulation Overall status at discharge: patient is back to baseline Time Spent with Patient Time attestation: Total time spent providing and/or coordinating discharge services: Time spent: Greater than 30 minutes Exam Narrative: GENERAL: Well appearing, well-nourished, non-toxic, in no acute distress. HEAD: Normocephalic, atraumatic. NECK: Supple. No adenopathy, no masses. RESPIRATORY: Airway patent, respirations nonlabored. Clear to auscultation bilaterally, no rales, rhonchi, wheezing. CARDIOVASCULAR: Regular rate and rhythm without murmurs, rubs, or gallops. Peripheral pulses 2+ and equal bilaterally. ABDOMINAL: Soft, nontender, nondistended, no hepatosplenomegaly. Normoactive BS. MUSCULOSKELETAL: no Epigastric and no hypochondrial tenderness SKIN: Warm, dry, normal color. No rashes. NEURO: A&O X3. Moves all extremities PSYCHIATRIC: Appropriate mood and affect. Normal interaction. DS: Data Data Completed and Pending Labs on day of discharge: Labs from last 24 hours 04/12/22 04/12/22 04/12/22 07:46 04:58 04:58 WBC RBC Hgb Hct MCV MCH MCHC RDW Plt Count MPV Immature Gran % (Auto) Neut % (Auto) Lymph % (Auto) [place] % (Auto) Eos % (Auto) Baso % (Auto) Lymph # (Auto) [place] # (Auto) Eos # (Auto) Baso # (Auto) Abs Immat Gran (auto) Absolute Neuts (auto) Absolute Nucleated RBC Nucleated RBC % PT INR APTT Sodium Potassium Chloride Carbon Dioxide Anion Gap BUN Creatinine Estim Creat Clear Calc Estimated GFR Glucose POC Capillary Glucose 174 H Hemoglobin A1c 7.8 H Calcium Magnesium Total Bilirubin AST ALT Alkaline Phosphatase Troponin I Total Protein Albumin Lipase TSH (Reflex) 2.700 04/12/22 04/12/22 04/11/22 04:58 04:58 21:52 WBC 3.5 L RBC 3.30 L Hgb 9.6 L Hct 30.1 L MCV 91.2 MCH 29.1 MCHC 31.9 L RDW 14.6 H Plt Count 187 MPV 10.4 Immature Gran % (Auto) Neut % (Auto) Lymph % (Auto) [place] % (Auto) Eos % (Auto) Baso % (Auto) Lymph # (Auto) [place]
--- NOTE | 2022-04-12 11:11 | PM.CNCAR ---
Assessment and Plan Assessment and plan (1) Chest pain: Code(s): R07.9 - Chest pain, unspecified Status: Acute (2) Heart failure with preserved ejection fraction: Code(s): I50.30 - Unspecified diastolic (congestive) heart failure Status: Acute (3) Hypertension: Code(s): I10 - Essential (primary) hypertension Status: Acute Plan Continue ASA and statin. Obtain Lexiscan. If negative, patient can be discharged home. Switch Atenolol to Coreg 12.5mg BID. Patient to follow-up with Lanre as an outpatient. History of Present Illness History of Present Illness Consult date/time: 04/12/22 11:11 Requesting physician: West Lockhart MD Consult reason: chest pain Reason For Visit: Chest Pain, Uncontrolled Hypertension Narrative: We are being consulted for chest pain. This is a 76-year-old female who follows with Dr. De Dios. 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 Patient last saw Lanre 03/07/2022. She presented yesterday with substernal chest pain that has been occurring for the past few weeks. Thinks it started after getting the flu. Patient states her pain is pressure-like and is constant. No associated with exertion or stress. No association with breathing or body positions. Patient reports that her pain feels better after getting NTG patch in the ED. Troponins negative x 3. EKG without ischemic changes. MPI 05/2021 was negative for ischemia. At Lanre's visit, he had switched her Losartan/HCTZ to Entresto, changed atenolol to carvedilol and changed pioglitazone to SGLT2 inhibitor. Patient states she picked up the Coreg, but the Enteresto and Farxiga are too expensive for her so she never filled them. Although she picked up the Coreg 12.5mg BID, she has not started taking it and remains on atenolol. Review of Systems Review of Systems: 12-point ROS obtained. Negative, unless stated in HPI. [facility] Past Medical History Medical History Arthritis Chronic anemia Chronic kidney disease, stage 3 Heart failure with preserved ejection fraction Hyperlipidemia Hypertension Insulin dependent diabetes mellitus Squamous cell carcinoma of tongue Surgical History Surgical History History of cholecystectomy History of hysterectomy History of tonsillectomy Family History Family History Mother Hypertension, Onset Age: 81 Family history of arthritis, Onset Age: 81 Family history of type 2 diabetes mellitus, Onset Age: 81 Family history of congestive heart failure, Onset Age: 81 Father Hypertension, Onset Age: 80 Family history of type 2 diabetes mellitus, Onset Age: 80 Sibling Hypertension Cerebrovascular accident Family history of type 2 diabetes mellitus Social History Social History Social History: Healthcare power of finance attorney: Jm Storey, nephew. Code status: Full code. Smoking status: Never smoker Second hand tobacco smoke exposure: No Alcohol intake: never Substance use: never Lack of Transportation: No Lack of Food: Never True Current Housing: I Have Housing Concerned About Future Housing: No Difficulty Paying Gas/Electric Bills: No Difficulty Paying for Meds: No Currently Unemployed: No Education: High School Diploma/GED Difficulty w/ Childcare or Family Care: No Additional living arrangements comments: The patient lives in her own apartment in [place]. 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 Spiritual care concerns: Yes (would like communion when offered) Meds Home Medications and Allergies Home Medications Medication Instructions Recorded Confirmed Type aspirin 81 mg tablet,delayed 81 mg PO KELSEY
[2022-04-12 12:02] LABS: Glucose Point of Care 150 mg/dl (65-105)
[2022-04-12] MEDS: metFORMIN HCL 500 MG TABLET PO (14:38)
[2022-04-12] MEDS: PIOGLITAZONE HCL 45 MG TABLET PO (14:38)
[2022-04-12] MEDS: hydroCHLOROthiazide 25 MG TABLET PO (14:38)
== END 2022-04-12 15:47 | disposition home or self-care (01) ==
LOC: ANHED 15:40 → ANHIMU 17:39
PROVIDERS: Physician Assistant; Admitting Provider Chiropractor; Emergency Provider Emergency Medicine; PCP Family Medicine; Visit Provider Internal Medicine
DX: R07.9 Chest pain, unspecified (principal); I13.0 Hypertensive heart and chronic kidney disease with heart failure and stage 1 through stage 4 chronic kidney disease, or unspecified chronic kidney disease; I50.30 Unspecified diastolic (congestive) heart failure; N18.30 Chronic kidney disease, stage 3 unspecified; E11.22 Type 2 diabetes mellitus with diabetic chronic kidney disease; D63.1 Anemia in chronic kidney disease; E11.65 Type 2 diabetes mellitus with hyperglycemia; R94.31 Abnormal electrocardiogram [ECG] [EKG]; Z98.890 Other specified postprocedural states; E78.5 Hyperlipidemia, unspecified; M10.9 Gout, unspecified; J98.11 Atelectasis; K21.9 Gastro-esophageal reflux disease without esophagitis; R00.1 Bradycardia, unspecified; M19.90 Unspecified osteoarthritis, unspecified site; Z85.810 Personal history of malignant neoplasm of tongue; Z79.82 Long term (current) use of aspirin; Z79.4 Long term (current) use of insulin; Z79.84 Long term (current) use of oral hypoglycemic drugs; Z79.899 Other long term (current) drug therapy; Z82.49 Family history of ischemic heart disease and other diseases of the circulatory system; Z83.3 Family history of diabetes mellitus
CPT/HCPCS: 36415; 71046; 78452; 80053; 82948; 83036; 83690; 83735; 84443; 84484; 85025; 85027; 85610; 85730; 93005; 93017; 99285; A9270; A9502; G0378; J1815; J2785

== ENCOUNTER → 2022-06-08 10:17 | Outpatient (CLI) | payer OTHER, SELFPAY ==
--- NOTE | ~2022-06-08 | XR_ITS ---
EXAMINATION: XR shoulder RT min 2V DATE: 06/08/2022 10:47 INDICATION: Right shoulder pain TECHNIQUE: AP internally and externally rotated, AP oblique externally rotated and axillary views of the right shoulder were obtained. COMPARISON: Chest radiograph dated 12/02/2015 FINDINGS: Postoperative changes at the right shoulder with this includes anterior to posteriorly directed lag s crews at the acromion which are cannulated and through which passes a figure 8 cerclage wire. Small s ubacromial spurs. Pair of suture anchors along the greater tuberosity likely from prior rotator cuff repair. Bone alignment is normal. Mild right glenohumeral osteoarthritis with mild nonuniform joint s pace narrowing and small marginal osteophytes. Moderate acromioclavicular osteoarthritis. No fracture s identified. IMPRESSION: 1. Mild right glenohumeral and moderate acromioclavicular osteoarthritis. No acute osseous abnormalit y. 2. Postoperative change at the right shoulder as detailed above including likely prior rotator cuff r epair and internal fixation of a likely chronic acromial fracture. Reviewed, dictated and finalized at location A. L CLERK IMPRESSION: 1. Mild right glenohumeral and moderate acromioclavicular osteoarthritis. No ac rex osseous abnormality. 2. Postoperative change at the right shoulder as detailed above including likel y prior rotator cuff repair and internal fixation of a likely chronic acromial fracture.
== END ==
PROVIDERS: PCP Family Medicine; Visit Provider Nurse Practitioner Family
DX: M19.011 Primary osteoarthritis, right shoulder (principal)
CPT/HCPCS: 73030

== ENCOUNTER 2022-07-13 10:52 | Outpatient (CLI) | payer OTHER, SELFPAY ==
[2022-07-13 11:24] LABS: Basophils Percent Auto 0.6 % (0.2-1.2); Eosinophils Absolute Auto 0.1 K/mm3 (0-0.3); Lymphocytes Absolute Auto 1.05 K/mm3 (0.9-3.2); Lymphocytes Percent Auto 29.3 % (18.3-44.2); Mean Corpuscular HGB Conc 31.3 g/dl (32-36); Mean Corpuscular Hemoglobin 29.8 pg (26-34); Mean Corpuscular Volume 95.2 fl (80-100); Mean Platelet Volume 10.8 fl (7.4-10.4); Monocytes Absolute Auto 0.4 K/mm3 (0.1-0.6); Monocytes Percent Auto 11.2 % (2.6-8.5); Neutrophils Percent Auto 56.9 % (45.5-73.1); Platelet Count Result 250 k/mm3 (150-375); Red Blood Count 3.36 M/mm3 (4.2-5.4); White Blood Count 3.6 K/mm3 (4.5-10.0)
[2022-07-13 11:55] LABS: Anion Gap 7 mmol/L (8-16); Blood Urea Nitrogen 24 mg/dL (7-17); Calcium 9.4 mg/dL (8.4-10.2); Carbon Dioxide 31 mmol/L (22-30); Chloride 102 mmol/L (98-107); Estimated Glomerular Filt Rate 59; Glucose 179 mg/dL (65-110); Potassium 4.6 mmol/L (3.4-5.0); Sodium 140 mmol/L (137-145)
[2022-07-13 12:09] LABS: Iron 51 ug/dL (37-170)
[2022-07-13 12:20] LABS: Percent Iron Saturation 14 % (20-50)
[2022-07-13 13:03] LABS: Folic Acid > 20.0 ng/mL (2.76->20)
== END 2022-07-13 10:53 | disposition home or self-care (01) ==
LOC: ANHLAB 10:54
PROVIDERS: PCP Family Medicine; Visit Provider Internal Medicine Hematology & Oncology
DX: D64.9 Anemia, unspecified (principal)
CPT/HCPCS: 36415; 80048; 82607; 82728; 82746; 83540; 83550; 85025

== ENCOUNTER 2022-08-10 11:30 | Outpatient (CLI) | payer OTHER, SELFPAY ==
[2022-08-10 11:47] LABS: Hematocrit 30.9 % (37.0-47.0); Hemoglobin 9.7 g/dL (12.0-15.0); Mean Corpuscular HGB Conc 31.4 g/dl (32-36); Mean Corpuscular Hemoglobin 29.7 pg (26-34); Mean Corpuscular Volume 94.5 fl (80-100); Mean Platelet Volume 9.8 fl (7.4-10.4); Platelet Count Result 224 k/mm3 (150-375); Red Blood Count 3.27 M/mm3 (4.2-5.4); Red Cell Distribution Width 15.1 % (11.5-14.5); White Blood Count 3.5 K/mm3 (4.5-10.0)
[2022-08-10 13:51] LABS: Alanine Aminotransferase 14 U/L (6-35); Albumin Level 4.4 g/dL (3.5-5.1); Alkaline Phosphatase 80 U/L (38-126); Anion Gap 7 mmol/L (8-16); Aspartate Amino Transferase 26 U/L (14-36); Bilirubin,Total 0.4 mg/dL (0.2-1.3); Blood Urea Nitrogen 20 mg/dL (7-17); Calcium 9.6 mg/dL (8.4-10.2); Carbon Dioxide 31 mmol/L (22-30); Chloride 102 mmol/L (98-107); Cholesterol 151 mg/dL (0-200); Estimated Glomerular Filt Rate > 60; Glucose 82 mg/dL (65-110); HDL Direct 46 mg/dL; Potassium 4.5 mmol/L (3.4-5.0); Sodium 140 mmol/L (137-145); Triglycerides 95 mg/dL (<150)
[2022-08-10 14:02] LABS: Hemoglobin A1C 7.2 % (<5.7); LDL Cholesterol Direct 59 mg/dL
[2022-08-10 14:05] LABS: Creatinine Urine 36.6 mg/dL
[2022-08-10 14:09] LABS: MALB Creatinine Ratio 111.7 mg/g (0-30); Microalbumin Urine Random 40.9 mg/L (0-16.7)
[2022-08-10 14:10] LABS: Vitamin D 25 Hydroxy 65.3 ng/mL
== END 2022-08-10 11:31 | disposition home or self-care (01) ==
LOC: ANHLAB 11:31
PROVIDERS: PCP Family Medicine; Visit Provider Nurse Practitioner
DX: N18.30 Chronic kidney disease, stage 3 unspecified (principal); E78.5 Hyperlipidemia, unspecified; E11.65 Type 2 diabetes mellitus with hyperglycemia; Z79.4 Long term (current) use of insulin; D64.9 Anemia, unspecified; Z13.21 Encounter for screening for nutritional disorder; R74.8 Abnormal levels of other serum enzymes
CPT/HCPCS: 36415; 80053; 80061; 82043; 82306; 82607; 83036; 85027

== ENCOUNTER 2022-12-21 08:43 | Emergency (ER) | payer OTHER, SELFPAY ==
[2022-12-21] VITALS (34 sets, daily range): BP systolic 141–190; BP diastolic 51–87; PULSE 51–71; RESP 9–22; TEMP 36.2; O2SAT 96–100
--- NOTE | ~2022-12-21 | CT_ITS ---
EXAMINATION: CT brain wo con DATE: 12/21/2022 10:09 INDICATION: Dizziness. Vertigo. Nausea. TECHNIQUE: Computed tomography (CT) of the head was performed without intravenous contrast. The mA wa s adjusted according to patient size. Iterative reconstruction technique was employed. Exam dose: 60 5.33 mGy-cm total exam DLP. COMPARISON: None FINDINGS: Intracranial cerebral atherosclerosis. There is nonspecific diminished attenuation of the c erebral white matter, likely due to chronic small vessel ischemic changes. Chronic lacunar infarct of the left thalamus. There is moderate cerebral and cerebellar volume loss. No intracranial mass lesion or hemorrhage or recent cerebrovascular accident is detected. No midline shift or mass effect. No subdural or epidural hematoma. The included paranasal sinuses and the mastoid air cells are normally developed and aerated. Middle a nd inner ear apparatus appear unremarkable. No fracture or bone destruction of the cranial vault. IMPRESSION: Intracranial cerebral atherosclerosis and chronic small vessel ischemic changes of the c erebral white matter Chronic lacunar infarct of left thalamus No acute intracranial finding Reviewed, dictated and finalized at Location A. Reviewed, dictated and finalized at location B. IMPRESSION: Intracranial cerebral atherosclerosis and chronic small vessel isc hemic changes of the cerebral white matter Chronic lacunar infarct of left thalamus No acute intracranial finding
--- NOTE | 2022-12-21 09:05 | ECG_ITS ---
Measurements Intervals [place] Rate: 49 P: 64 [place]: 206 QRS: -17 QRSD: 98 T: 35 QT: 449 QTc: 407 Interpretive Statements SINUS BRADYCARDIA BORDERLINE AV CONDUCTION DELAY BORDERLINE T WAVE ABNORMALITY- ANTERIOR LEADS ABNORMAL ECG COMPARED TO ECG 04/11/2022 10:31:40 NO SIGNIFICANT CHANGES Electronically Signed On 12-21-2022 19:29:41 CDT by Donn Oneil D.O.
--- NOTE | 2022-12-21 09:15 | ED.DIZZY ---
HPI - Dizziness General Chief Complaint: Dizziness Stated Complaint: Weakness Time Seen by Provider: 12/21/22 08:45 History of Present Illness HPI Narrative: This is a 77-year-old female, with past history of breast cancer status post radiation in August, hypertension, diabetes, who is brought in by EMS for dizziness. The patient states this morning, on waking, she sat forward and felt sudden onset vertigo. She denies focal weakness or numbness, chest pain or shortness of breath. She denies any recent change in medications. She denies tinnitus, hearing loss or vision changes. Related Data Home Medications Medication Instructions Recorded Confirmed aspirin 81 mg tablet,delayed 81 mg PO DAILY 04/27/19 11/20/22 release (Adult Low Dose Aspirin) losartan 100 1 tablet PO DAILY 04/11/22 11/20/22 mg-hydrochlorothiazide 25 mg tablet insulin glargine 100 unit/mL (3 10 unit subcut QPM 08/10/22 11/20/22 mL) subcutaneous pen (Lantus Solostar U-100 Insulin) Allergies Allergy/AdvReac Type Severity Reaction Status Date / Time Penicillins Allergy Unknown Rash Verified 11/20/22 11:49 Sulfa (Sulfonamide Allergy Unknown Rash Verified 11/20/22 11:49 Antibiotics) Review of Systems Review of Systems: CONSTITUTIONAL: Denies fever, chills, or sweats. EYES: Denies visual changes, redness, or discharge. ENT: Denies rhinorrhea, congestion, sore throat, or otalgia. CARDIOVASCULAR: Denies chest pain, palpitations, or edema. RESPIRATORY: Denies cough or dyspnea. GASTROINTESTINAL: Denies abdominal pain, nausea, vomiting, or diarrhea. GENITOURINARY: Denies dysuria or hematuria. MUSCULOSKELETAL: Denies back pain, joint pain, or myalgia. NEUROLOGIC: Vertigo denies headache, numbness, or weakness. PSYCHIATRIC: Denies anxiety or depression. [facility] Past Medical History Medical History Arthritis Chronic anemia Chronic kidney disease, stage 3 Heart failure with preserved ejection fraction Hx of breast cancer Hyperlipidemia Hypertension Insulin dependent diabetes mellitus Squamous cell carcinoma of tongue Surgical History Surgical History History of cholecystectomy History of hysterectomy History of tonsillectomy Family History Family History Mother Hypertension, Onset Age: 81 Family history of arthritis, Onset Age: 81 Family history of type 2 diabetes mellitus, Onset Age: 81 Family history of congestive heart failure, Onset Age: 81 Father Hypertension, Onset Age: 80 Family history of type 2 diabetes mellitus, Onset Age: 80 Sibling Hypertension Cerebrovascular accident Family history of type 2 diabetes mellitus Social History Social History Social History: Healthcare power of plywood stock grader: Jm Storey, nephew. Code status: Full code. Smoking status: Never smoker Second hand tobacco smoke exposure: No Alcohol intake: never Substance use: never Lack of Transportation: No Lack of Food: Never True Current Housing: I Have Housing Concerned About Future Housing: No Difficulty Paying Gas/Electric Bills: No Difficulty Paying for Meds: No Currently Unemployed: No Education: High School Diploma/GED Difficulty w/ Childcare or Family Care: No Additional living arrangements comments: The patient lives in her own apartment in [place]. 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 Spiritual care concerns: Yes (would like communion when offered) Exam Narrative: GENERAL: Well-developed, well-nourished, and in no acute distress. HEAD: Normocephalic, atraumatic. EYES: PERRLA and EOMI. ENT: Nares clear, no rhinorrhea or epistaxis. Mucous membranes moist. Oropharynx without tonsillar hypertrophy exudate or other lesions. Left
[2022-12-21] MEDS: SODIUM CHLORIDE 0.9% IV 1,000 ML 999 ML IV CONT (09:29)
[2022-12-21] MEDS: ONDANSETRON INJ 4 MG/2 ML VIAL IV PUSH (09:30)
[2022-12-21] MEDS: MECLIZINE HCL 25 MG TABLET PO (09:31)
[2022-12-21 09:43] LABS: Basophils Percent Auto 0.6 % (0.2-1.2); Eosinophils Absolute Auto 0.1 K/mm3 (0-0.3); Eosinophils Percent Auto 1.2 % (0-4.4); Hematocrit 35.2 % (37.0-47.0); Hemoglobin 11.3 g/dL (12.0-15.0); Immature Granulocyte Absolute 0.01 K/mm3 (0.00-0.031); Immature Granulocyte Percent A 0.2 % (0-0.5); Lymphocytes Absolute Auto 0.79 K/mm3 (0.9-3.2); Lymphocytes Percent Auto 16.1 % (18.3-44.2); Mean Corpuscular HGB Conc 32.1 g/dl (32-36); Mean Corpuscular Hemoglobin 30.2 pg (26-34); Mean Corpuscular Volume 94.1 fl (80-100); Mean Platelet Volume 10.4 fl (7.4-10.4); Monocytes Absolute Auto 0.4 K/mm3 (0.1-0.6); Monocytes Percent Auto 7.8 % (2.6-8.5); Neutrophils Absolute Auto 3.6 K/mm3 (1.3-6.7); Neutrophils Percent Auto 74.1 % (45.5-73.1); Platelet Count Result 228 k/mm3 (150-375); Red Blood Count 3.74 M/mm3 (4.2-5.4); White Blood Count 4.9 K/mm3 (4.5-10.0)
[2022-12-21 09:54] LABS: Alanine Aminotransferase 17 U/L (6-35); Albumin Level 4.7 g/dL (3.5-5.1); Alkaline Phosphatase 112 U/L (38-126); Anion Gap 10 mmol/L (8-16); Aspartate Amino Transferase 30 U/L (14-36); Bilirubin,Total 0.4 mg/dL (0.2-1.3); Blood Urea Nitrogen 30 mg/dL (7-17); Calcium 9.8 mg/dL (8.4-10.2); Carbon Dioxide 28 mmol/L (22-30); Chloride 101 mmol/L (98-107); Estimated CRCL calculation 41 ml/min; Estimated Glomerular Filt Rate > 60; Glucose 156 mg/dL (65-110); Magnesium 2.3 mg/dL (1.6-2.3); Potassium 4.2 mmol/L (3.4-5.0); Sodium 139 mmol/L (137-145)
--- NOTE | 2022-12-21 10:59 | PC.NURSE ---
Attempted to ambulate with pt and to feed pt per ERP request. Pt is able to stand and start ambulating but cannot seem to maintain her balance. Pt is able to ambulate out of room with assistance. States that she feels less dizzy. Pt denies using any ambulation assistance devices at home. Pt also c/o increased nausea while ambulating and denies wanting anything to eat or drink at this time.
== END 2022-12-21 13:20 | disposition home or self-care (01) ==
PROVIDERS: Emergency Provider Preventive Medicine Aerospace Medicine; PCP Family Medicine
DX: H81.12 Benign paroxysmal vertigo, left ear (principal); E11.22 Type 2 diabetes mellitus with diabetic chronic kidney disease; I13.0 Hypertensive heart and chronic kidney disease with heart failure and stage 1 through stage 4 chronic kidney disease, or unspecified chronic kidney disease; N18.30 Chronic kidney disease, stage 3 unspecified; I50.9 Heart failure, unspecified; E78.5 Hyperlipidemia, unspecified; Z85.3 Personal history of malignant neoplasm of breast; Z85.810 Personal history of malignant neoplasm of tongue; Z90.49 Acquired absence of other specified parts of digestive tract; Z90.710 Acquired absence of both cervix and uterus; Z79.82 Long term (current) use of aspirin; Z79.4 Long term (current) use of insulin; R00.1 Bradycardia, unspecified; R94.31 Abnormal electrocardiogram [ECG] [EKG]
CPT/HCPCS: 36415; 70450; 80053; 83735; 85025; 93005; 96361; 96374; 99284; A9270; J2405; J7030

== ENCOUNTER 2023-01-10 10:49 | Outpatient (CLI) | payer OTHER, SELFPAY ==
[2023-01-10 11:20] LABS: Basophils Percent Auto 0.3 % (0.2-1.2); Eosinophils Absolute Auto 0.1 K/mm3 (0-0.3); Eosinophils Percent Auto 2.7 % (0-4.4); Hematocrit 31.4 % (37.0-47.0); Hemoglobin 10.2 g/dL (12.0-15.0); Immature Granulocyte Absolute 0.01 K/mm3 (0.00-0.031); Immature Granulocyte Percent A 0.3 % (0-0.5); Lymphocytes Absolute Auto 0.96 K/mm3 (0.9-3.2); Lymphocytes Percent Auto 28.3 % (18.3-44.2); Mean Corpuscular HGB Conc 32.5 g/dl (32-36); Mean Corpuscular Hemoglobin 30.3 pg (26-34); Mean Corpuscular Volume 93.2 fl (80-100); Mean Platelet Volume 9.5 fl (7.4-10.4); Monocytes Absolute Auto 0.4 K/mm3 (0.1-0.6); Monocytes Percent Auto 10.3 % (2.6-8.5); Neutrophils Percent Auto 58.1 % (45.5-73.1); Platelet Count Result 202 k/mm3 (150-375); Red Blood Count 3.37 M/mm3 (4.2-5.4); White Blood Count 3.4 K/mm3 (4.5-10.0)
[2023-01-10 13:46] LABS: Iron 57 ug/dL (37-170)
[2023-01-10 13:48] LABS: Alanine Aminotransferase 14 U/L (6-35); Alkaline Phosphatase 105 U/L (38-126); Anion Gap 9 mmol/L (8-16); Aspartate Amino Transferase 23 U/L (14-36); Bilirubin,Total 0.3 mg/dL (0.2-1.3); Blood Urea Nitrogen 22 mg/dL (7-17); Calcium 9.4 mg/dL (8.4-10.2); Carbon Dioxide 28 mmol/L (22-30); Chloride 101 mmol/L (98-107); Estimated Glomerular Filt Rate > 60; Glucose 193 mg/dL (65-110); Potassium 4.2 mmol/L (3.4-5.0); Sodium 138 mmol/L (137-145)
[2023-01-10 13:56] LABS: Percent Iron Saturation 22 % (20-50)
[2023-01-10 14:59] LABS: Folic Acid > 20.0 ng/mL (2.76->20)
== END 2023-01-10 10:50 | disposition home or self-care (01) ==
LOC: ANHLAB 10:52
PROVIDERS: PCP Family Medicine; Visit Provider Internal Medicine Hematology & Oncology
DX: D64.9 Anemia, unspecified (principal)
CPT/HCPCS: 36415; 80053; 82607; 82728; 82746; 83540; 83550; 85025

== ENCOUNTER 2023-07-08 10:10 | Outpatient (CLI) | payer OTHER, SELFPAY ==
[2023-07-08 10:44] LABS: Basophils Percent Auto 0.3 % (0.2-1.2); Eosinophils Absolute Auto 0.1 K/mm3 (0-0.3); Eosinophils Percent Auto 2.5 % (0-4.4); Hemoglobin 10.9 g/dL (12.0-15.0); Immature Granulocyte Absolute 0.01 K/mm3 (0.00-0.031); Immature Granulocyte Percent A 0.3 % (0-0.5); Lymphocytes Absolute Auto 1.37 K/mm3 (0.9-3.2); Lymphocytes Percent Auto 37.3 % (18.3-44.2); Mean Corpuscular HGB Conc 32.1 g/dl (32-36); Mean Corpuscular Hemoglobin 29.5 pg (26-34); Mean Corpuscular Volume 92.1 fl (80-100); Monocytes Absolute Auto 0.4 K/mm3 (0.1-0.6); Monocytes Percent Auto 11.7 % (2.6-8.5); Neutrophils Absolute Auto 1.8 K/mm3 (1.3-6.7); Neutrophils Percent Auto 47.9 % (45.5-73.1); Platelet Count Result 216 k/mm3 (150-375); Red Blood Count 3.69 M/mm3 (4.2-5.4); Red Cell Distribution Width 13.5 % (11.5-14.5); White Blood Count 3.7 K/mm3 (4.5-10.0)
[2023-07-08 14:08] LABS: Iron 60 ug/dL (37-170)
[2023-07-08 14:17] LABS: Percent Iron Saturation 22 % (20-50)
[2023-07-08 15:56] LABS: Folic Acid > 20.0 ng/mL (2.76->20); Vitamin B12 > 1000.0 pg/mL (239-931)
[2023-07-08 16:17] LABS: Alanine Aminotransferase 11 U/L (6-35); Albumin Level 3.8 g/dL (3.5-5.1); Alkaline Phosphatase 95 U/L (38-126); Anion Gap 6 mmol/L (8-16); Aspartate Amino Transferase 26 U/L (14-36); Bilirubin,Total 0.3 mg/dL (0.2-1.3); Blood Urea Nitrogen 22 mg/dL (7-17); Calcium 9.7 mg/dL (8.4-10.2); Carbon Dioxide 29 mmol/L (22-30); Chloride 104 mmol/L (98-107); Estimated Glomerular Filt Rate > 60; Glucose 81 mg/dL (65-110); Potassium 4.4 mmol/L (3.4-5.0); Sodium 139 mmol/L (137-145)
== END 2023-07-08 10:11 | disposition home or self-care (01) ==
LOC: ANHLAB 10:13
PROVIDERS: PCP Family Medicine; Visit Provider Internal Medicine Hematology & Oncology
DX: D64.9 Anemia, unspecified (principal)
CPT/HCPCS: 36415; 80053; 82607; 82728; 82746; 83540; 83550; 85025

== ENCOUNTER 2023-11-22 09:14 | Emergency (ER) | payer OTHER, SELFPAY ==
--- NOTE | 2023-11-22 09:23 | ED.URI ---
HPI - URI/Sore Throat General Chief Complaint: Upper Respiratory Infection Stated Complaint: Covid Source: patient and RN notes reviewed Mode of arrival: ambulatory Limitations: no limitations History of Present Illness HPI Narrative: 78 y/o female with hx DM, HTN, breast cancer presented after testing positive for COVID 3 days ago. States her home test was . Endorses Headache, body aches, sinus pressure/congestion, cough, decreased appetite, fever/chills. Onset 3 days. Endorses known exposure to Covid. Denies sob, wheezing, chest pain, palpitations, n/v/d. Not taking anything for symptoms . MD elicited complaint: cough Related Data Home Medications Medication Instructions Recorded Confirmed aspirin 81 mg tablet,delayed 81 mg PO DAILY 04/27/19 11/22/23 release (Adult Low Dose Aspirin) losartan 100 1 tablet PO DAILY 04/11/22 11/22/23 mg-hydrochlorothiazide 25 mg tablet tamoxifen 10 mg tablet 10 mg PO BID 09/18/23 11/22/23 Allergies Allergy/AdvReac Type Severity Reaction Status Date / Time Penicillins Allergy Unknown Rash Verified 11/22/23 09:20 Sulfa (Sulfonamide Allergy Unknown Rash Verified 11/22/23 09:20 Antibiotics) Review of Systems Review of Systems: CONSTITUTIONAL: Endorses malaise, chills, sweats, fever EYES: Denies visual changes, redness, or discharge ENT: Reports rhinorrhea, congestion, otalgia, sore throat CARDIOVASCULAR: Denies chest pain, palpitations, edema RESPIRATORY: Reports cough, post nasal drainage. Denies dyspnea GASTROINTESTINAL: Denies abdominal pain, nausea, vomiting, diarrhea SKIN: Denies rash or itching MUSCULOSKELETAL: Endorses myalgia NEUROLOGIC: Denies headache PMFSH Past Medical History Medical History Arthritis Chronic anemia Chronic kidney disease, stage 3 Heart failure with preserved ejection fraction Hx of breast cancer Hyperlipidemia Hypertension Insulin dependent diabetes mellitus Squamous cell carcinoma of tongue Surgical History Surgical History History of cholecystectomy History of hysterectomy History of tonsillectomy Family History Family History Mother Hypertension, Onset Age: 81 Family history of arthritis, Onset Age: 81 Family history of type 2 diabetes mellitus, Onset Age: 81 Family history of congestive heart failure, Onset Age: 81 Father Hypertension, Onset Age: 80 Family history of type 2 diabetes mellitus, Onset Age: 80 Sibling Hypertension Cerebrovascular accident Family history of type 2 diabetes mellitus Social History Social History Social History: Healthcare power of trademark attorney: Jm Storey, nephew. Code status: Full code. Smoking status: Never smoker Second hand tobacco smoke exposure: No Alcohol intake: never Substance use: never Lack of Transportation: No Lack of Food: Never True Current Housing: I Have Housing Concerned About Future Housing: No Difficulty Paying Gas/Electric Bills: No Difficulty Paying for Meds: No Currently Unemployed: No Education: High School Diploma/GED Difficulty w/ Childcare or Family Care: No Additional living arrangements comments: The patient lives in her own apartment in [place]. 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 Spiritual care concerns: Yes (would like communion when offered) Exam Narrative: GENERAL: Mildly Ill-appearing, nontoxic no acute distress. HEAD: Normocephalic EYES: PERRLA, conjunctivae clear ENT: Mucous membranes moist. TM pearly kumar with dull light reflex bilaterally; no tragal tenderness. no drooling, no hoarseness, no trismus, uvula midline. No tripod positioning, muffled voice, soft palate or pharyngeal wall bulging NECK: Supple. No lymphadenopathy CHEST:
[2023-11-22 09:27] VITALS: BP 102/60; PULSE 82; RESP 16; TEMP 36.4; O2SAT 100
== END 2023-11-22 09:40 | disposition home or self-care (01) ==
PROVIDERS: Emergency Provider Nurse Practitioner Family; PCP Family Medicine
DX: U07.1 COVID-19 (principal); I13.0 Hypertensive heart and chronic kidney disease with heart failure and stage 1 through stage 4 chronic kidney disease, or unspecified chronic kidney disease; E11.22 Type 2 diabetes mellitus with diabetic chronic kidney disease; N18.30 Chronic kidney disease, stage 3 unspecified; I50.9 Heart failure, unspecified; Z79.4 Long term (current) use of insulin; M19.90 Unspecified osteoarthritis, unspecified site; E78.5 Hyperlipidemia, unspecified; Z85.3 Personal history of malignant neoplasm of breast; Z85.810 Personal history of malignant neoplasm of tongue; Z79.82 Long term (current) use of aspirin
CPT/HCPCS: 87426; 99213; G0463

== ENCOUNTER 2024-01-20 10:29 | Outpatient (CLI) | payer OTHER, SELFPAY ==
[2024-01-20 10:43] LABS: Basophils Percent Auto 0.3 % (0.2-1.2); Eosinophils Absolute Auto 0.1 K/mm3 (0-0.3); Eosinophils Percent Auto 2.8 % (0-4.4); Hematocrit 31.9 % (37.0-47.0); Hemoglobin 10.4 g/dL (12.0-15.0); Lymphocytes Absolute Auto 1.43 K/mm3 (0.9-3.2); Lymphocytes Percent Auto 39.7 % (18.3-44.2); Mean Corpuscular HGB Conc 32.6 g/dl (32-36); Mean Corpuscular Hemoglobin 30.6 pg (26-34); Mean Corpuscular Volume 93.8 fl (80-100); Mean Platelet Volume 9.6 fl (7.4-10.4); Monocytes Absolute Auto 0.3 K/mm3 (0.1-0.6); Monocytes Percent Auto 8.1 % (2.6-8.5); Neutrophils Absolute Auto 1.8 K/mm3 (1.3-6.7); Neutrophils Percent Auto 49.1 % (45.5-73.1); Platelet Count Result 212 k/mm3 (150-375); Red Cell Distribution Width 13.4 % (11.5-14.5); White Blood Count 3.6 K/mm3 (4.5-10.0)
[2024-01-20 10:50] LABS: Blood Urea Nitrogen 22 mg/dL (8-26); Carbon Dioxide 29 mmol/L (22-30); Chloride 104 mmol/L (98-109); Estimated Glomerular Filt Rate 58; Glucose 75 mg/dL (70-105); Ionized Calcium (POC) 1.21 mmol/L (1.11-1.31); Potassium 3.6 mmol/L (3.5-4.9); Sodium 143 mmol/L (138-146)
== END 2024-01-20 10:30 | disposition home or self-care (01) ==
LOC: ANHLAB 10:31
PROVIDERS: PCP Family Medicine; Visit Provider Internal Medicine Hematology & Oncology
DX: D64.9 Anemia, unspecified (principal)
CPT/HCPCS: 36415; 80047; 85025

== ENCOUNTER 2024-07-20 14:08 | Outpatient (CLI) | payer OTHER, SELFPAY ==
[2024-07-20 14:24] LABS: Basophils Percent Auto 0.7 % (0.2-1.2); Eosinophils Absolute Auto 0.1 K/mm3 (0-0.3); Eosinophils Percent Auto 2.4 % (0-4.4); Hematocrit 34.6 % (37.0-47.0); Immature Granulocyte Absolute 0.01 K/mm3 (0.00-0.031); Immature Granulocyte Percent A 0.2 % (0-0.5); Lymphocytes Absolute Auto 1.56 K/mm3 (0.9-3.2); Lymphocytes Percent Auto 34.6 % (18.3-44.2); Mean Corpuscular HGB Conc 31.8 g/dl (32-36); Mean Corpuscular Hemoglobin 29.8 pg (26-34); Mean Corpuscular Volume 93.8 fl (80-100); Mean Platelet Volume 9.8 fl (7.4-10.4); Monocytes Absolute Auto 0.3 K/mm3 (0.1-0.6); Monocytes Percent Auto 7.5 % (2.6-8.5); Neutrophils Absolute Auto 2.5 K/mm3 (1.3-6.7); Neutrophils Percent Auto 54.6 % (45.5-73.1); Platelet Count Result 213 k/mm3 (150-375); Red Blood Count 3.69 M/mm3 (4.2-5.4); Red Cell Distribution Width 12.8 % (11.5-14.5); White Blood Count 4.5 K/mm3 (4.5-10.0)
[2024-07-20 15:18] LABS: Iron 49 ug/dL (37-170)
[2024-07-20 15:22] LABS: Anion Gap 6 mmol/L (4-12); Blood Urea Nitrogen 29 mg/dL (7-17); Carbon Dioxide 33 mmol/L (22-30); Chloride 99 mmol/L (98-107); Estimated Glomerular Filt Rate 49; Glucose 148 mg/dL (65-110); Potassium 4.3 mmol/L (3.4-5.0); Sodium 138 mmol/L (137-145)
[2024-07-20 15:31] LABS: Percent Iron Saturation 20 % (20-50)
--- OUTSIDE RECORDS SUMMARY | 2024-07-20 16:29 | XMS_ITS | Encounter Summary ---
Author Organization [facility] Address [address] [place] [address] Care Team Providers Care Supervisor Denture Department Name Role Phone Manuel Salcedo DO Primary Care Provider [phone] Encounter Details Date Type Department Care Team (Late Contact Info) Description 04/21/1999 Outpatient Historical [facility] Internal Medicine [facility] and [address] [place] [address] Hyun Romo MD [address] [facility] [address] [place] [address] Social History Tobacco Use Types Packs/Day Years Used Date Smoking Tobacco: Never Assessed Comments Unknown Sex and Gender Information Value Date Recorded Sex Assigned at Not on file Legal Sex Female 4:40 AM TUCK POINTER Gender Identity Not on file Sexual Orientation Not on file documented as of this encounter Plan of Treatment Upcoming Encounters Date Type Department Care Team (Late Contact Info) Description 07/27/2024 11:45 AM TUCK POINTER Office Visit [facility] Oncology and Hematology - [place] [address] [facility] [address] [place] [address] Samm Canas MD [address] [address] [place] [address] documented as of this encounter Visit Diagnoses Not on filedocumented in this encounter Care Teams Supervisor Denture Department Relationship Specialty Start Date End Date Manuel Salcedo DO [address] [id number] PCP - General Family Practice 01/17/23 documented as of this encounter
--- OUTSIDE RECORDS SUMMARY | 2024-07-20 16:29 | XMS_ITS | Encounter Summary ---
Author Organization [facility] Address [address] [place] [address] Care Team Providers Care Mess Attendant Name Role Phone Manuel Salcedo DO Primary Care Provider [phone] Encounter Details Date Type Department Care Team (Late Contact Info) Description 08/15/1999 Outpatient Historical [facility] Internal Medicine [facility] and [address] [place] [address] Hyun Romo MD [address] [facility] [address] [place] [address] Social History Tobacco Use Types Packs/Day Years Used Date Smoking Tobacco: Never Assessed Comments Unknown Sex and Gender Information Value Date Recorded Sex Assigned at Not on file Legal Sex Female 4:40 AM LAUNDRY ROOM ATTENDANT Gender Identity Not on file Sexual Orientation Not on file documented as of this encounter Plan of Treatment Upcoming Encounters Date Type Department Care Team (Late st Contact Info) Description 07/27/2024 11:45 AM LAUNDRY ROOM ATTENDANT Office Visit [facility] Oncology and Hematology - [place] [address] [facility] [address] [place] [address] Samm Canas MD [address] [facility] [address] [place] [address] documented as of this encounter Visit Diagnoses Not on filedocumented in this encounter Care Teams Mess Attendant Relationship Specialty Start Date End Date Manuel Salcedo DO [address] [id number] PCP - General Family Practice 01/17/23 documented as of this encounter
--- OUTSIDE RECORDS SUMMARY | 2024-07-20 16:29 | XMS_ITS | Encounter Summary ---
Author Organization [facility] Address [address] [place] [address] Care Team Providers Care Help Desk Technician Name Role Phone Manuel Salcedo DO Primary Care Provider [phone] Encounter Details Date Type Department Care Team (Late st Contact Info) Description 09/29/1999 Outpatient Historical [facility] Internal Medicine [facility] and [address] [place] [address] Jaelyn Mayo MD [address] [facility] [address] [place] [address] Social History Tobacco Use Types Packs/Day Years Used Date Smoking Tobacco: Never Assessed Comments Unknown Sex and Gender Information Value Date Recorded Sex Assigned at Not on file Legal Sex Female 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 TURPENTINE FARMER Gender Identity Not on file Sexual Orientation Not on file documented as of this encounter Plan of Treatment Upcoming Encounters Date Type Department Care Team (Late st Contact Info) Description 07/27/2024 11:45 AM TURPENTINE FARMER Office Visit [facility] Oncology and Hematology - [place] [address] [facility] [address] [place] [address] Samm Canas MD [address] [facility] [address] [place] [address] documented as of this encounter Visit Diagnoses Not on filedocumented in this encounter Care Teams Help Desk Technician Relationship Specialty Start Date End Date Manuel Salcedo DO [address] [phone] PCP - General Family Practice 01/17/23 documented as of this encounter
--- OUTSIDE RECORDS SUMMARY | 2024-07-20 16:29 | XMS_ITS | Encounter Summary ---
Author Organization [facility] Address [address] [place] [address] Care Team Providers Care Parts Room Assistant Name Role Phone Taqueria Singleton MD Primary Care Provider [phone] Reason for Visit * Diagnostic Imaging (Routine) - Closed Specialty Diagnoses / Procedures Referred By Contac t Referred To Contact Procedures Breast Imaging Screening Outside Reference Aft, Beverley Leung MD PhD [address] [place] [address] Phone: tel: fax: Referral ID Status Reason Start Date Expiration Date Visits Re quested Visits Authorized [id number] Closed 07/17/2021 08/16/2022 1 1 Encounter Details Date Type Department Care Team (Late st Contact Info) Description 11/08/2017 Hospital Encounter [facility] [address] [place] [address] Social History Tobacco Use Types Packs/Day Years Used Date Smoking Tobacco: Never Smokeless Tobacco: Never Alcohol Use Standard Drinks/Week Comments No 0 (1 standard drink = 0.6 oz pur e alcohol) AUDIT-C Answer Date Recorded Frequency of Alcohol Consumption Not on file 07/24/2023 Q2: How many drinks containi ng alcohol do you have on a typical day when you are drinking? Patient does not drink Frequency of Binge Drinking Not on file 06/28 Comments No Sex and Gender Information Value Date Recorded Sex Assigned at Not on file Legal Sex Female 11:24 PM NEUROSURGERY RESEARCH DIRECTOR Gender Identity Female 12/31/2022 7:44 AM CDT Sexual Orientation Straight 12/31/2022 7: 44 AM CDT documented as of this encounter Functional Status documented as of this encounter Plan of Treatment Not on file documented as of this encounter Procedures Procedure Name Priority Date/Time Associated Diagnosis Comments BREAST IMAGING MG SCREENING OUTSIDE REFERENCE Routine 11/08/2017 12:00 AM CDT documented in this encounter Results * Breast Imaging Screening Outside Reference (11/08/2017 12:00 AM CDT) Impressions [facility]MO[facility] - 07/17/2021 3:30 PM NEUROSURGERY RESEARCH DIRECTOR These images are for Reference purposes only and have not been reviewed by [facility] Radiology. There will be no report generated by a [facility] Radiologist. Narrative [facility] - 07/17/2021 3:30 PM NEUROSURGERY RESEARCH DIRECTOR EXAMINATION: Images For Reference Purposes Only us Beverley Riley MD PhD IMG MAMMO PROCEDURES Final Result [facility] documented in this encounter Visit Diagnoses Not on filedocumented in this encounter Care Teams Parts Room Assistant Relationship Specialty Start Date End Date Taqueria Singleton MD [address] [place] [address] PCP - General 03/06/17 03/06/22 documented as of this encounter
--- OUTSIDE RECORDS SUMMARY | 2024-07-20 16:29 | XMS_ITS | Encounter Summary ---
Author Organization [facility] Healthcare Address [address] [place] [address] Care Team Providers Care Optical Lab Technician Name Role Phone Rolf Kasper MD Primary Care Provider [phone] Reason for Visit * Diagnostic Imaging (Routine) - Closed Specialty Diagnoses / Procedures Referred By Contac t Referred To Contact Procedures Breast Imaging Screening Outside Reference Aft, Beverley Leung MD PhD [address] [place] [id number] Phone: tel: fax: Referral ID Status Reason Start Date Expiration Date Visits Re quested Visits Authorized [id number] Closed 07/17/2021 08/16/2022 1 1 Encounter Details Date Type Department Care Team (Late st Contact Info) Description 08/17/[address] [facility] [address] [place], [place] [id number] Social History Tobacco Use Types Packs/Day Years [...] on file Legal Sex Female 11:24 PM HEAT PLANT SPECIALIST Gender Identity Female 12/31/2022 7:44 AM CDT [...] CDT) Impressions [facility] - 07/17/2021 3:30 PM HEAT PLANT SPECIALIST These images are for Reference purposes only and have not been reviewed by [facility] Radiology. There will be no report generated by a [facility] Radiologist. Narrative [facility]_M[facility]MO[facility] - 07/17/2021 3:30 PM HEAT PLANT SPECIALIST EXAMINATION: Images For Reference Purposes Only us Beverley Riley MD PhD IMG MAMMO PROCEDURES Final Result [facility] documented in this encounter Visit Diagnoses Not on filedocumented in this encounter Care Teams Optical Lab Technician Relationship Specialty Start Date End Date Rolf Kasper MD [address] [facility] [place] [place] [address] PCP - General 06/29/14 02/20/17 documented as of this encounter
--- OUTSIDE RECORDS SUMMARY | 2024-07-20 16:29 | XMS_ITS | Referral Summary ---
Author Organization [facility] Address [address] [facility] [place] [address] Care Team Providers Care Assistant Floor Covering Printer Name Role Phone Manuel Salcedo DO Primary Care Provider [phone] Source Comments [facility],non-owned Affiliates and Associated Physician Practices is amultiple site organization consisting of ambulatory clinics and hospital sitesin [place], [place], [place] and [place]. This disclosure is being madepursuant to the Care Everywhere program and may not contain all information available regarding this patient. Last updated 18.[facility] Allergies Active Allergy Reactions Criticality Noted Date Comments Aspirin GI Discomfort,Unknown Low 12/12/2021 Penicillins Other,Rash Medium 12/12/2011 Unknown. Was told as a child Unknown. Was told as a child Reaction: Other Reaction: RASH, , Reaction: Rash, Sulfa Drugs Rash Medium 12/12/2011 Reaction: RASH, , Medications * Be aware that medications may not be up to date on this document. Alwaysverify current medications with the patient. Medication Sig Dispensed Refills Start Date End Date Status simvastatin (Zocor) 20 MG tablet Take 1 (one) tablet by mouth every evening 06/25/2023 Active losartan-hydroCHLO ROthiazide (Hyzaar) 100-25 MG tablet Take 1 (one) tablet by mouth once daily 06/25/2023 Active escitalopram (Lexapro) 5 MG tablet Take 1 (one) tablet by mouth once daily 06/25/2023 Active carvedilol (Coreg) 12.5 MG tablet Take 1 (one) tablet by mouth 2 times daily with morning and evening meal 03/29/2023 Active aspirin EC (Ecotrin) 81 MG tablet Take 1 (one) tablet by mouth every morning Active insulin glargine (Lantus/Semglee) 100 units/mL pen 10 (ten) Units to 15 (fifteen) Units at bedtime Active Semglee, yfgn, pen 20 UNIT (0.2 ML) SUBCUTANEOUSLY DAILY 03/29/2023 Active Multiple Vitamin (Multi-Day Vitamins) TABS Take 1 (one) tablet by mouth once daily Active metFORMIN (Glucophage) 500 MG tablet Take 1 (one) tablet by mouth Active vitamin D3 (Cholecalciferol) 25 MCG (1000 UNITS) tablet Take 1 (one) tablet by mouth once daily Active ferrous sulfate 325 (65 FE) MG tablet Take 1 (one) tablet by mouth once daily Active fluconazole (Diflucan) 200 MG tabletIndications: Vaginal discharge Diflucan 200 mg tablet, one by mouth every other day for three doses. 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 Diagnosis. 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 Diagnosis. 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 Transoral closure of left orocutaneous fistula ([place] 10/11/2015) Irrigation and washout of left neck wound ([place] 10/11/2015) Unknown and unspecified causes of morbidity 05/2707/11/2023 Overview (07/11/2023): Seasonal allergy Breast inflammation 12/23/2013 07/11/2023 Depression 10/10/2013 07/11/2023 Overview (07/11/2023): DEPRESSIVE DISORDER NEC Type 2 diabetes mellitus 10/10/2013 024 Overview (07/11/2023): DMII WO CMP NT ST UNCNTR Gastroesophageal reflux disease with esophagitis 10/10/2013 07/11/2023 Overview (07/11/2023): REFLUX ESOPHAGITIS Idiopathic hypertension 07/09/2012 07/11/19 Overview (07/11/2023): HYPERTENSION NOS Vitreous detachment 07/09/2012 07/11/2023 Epiretinal membrane (ERM) of both eyes 3 07/11/2023 Hypertensive retinopathy of both eyes 06/19/2012 07/11/2023 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 06/19/2012 07/11/2023 Overview (07/11/2023): Dx updated per 2018 IMO Load Proliferative diabetic retinopathy 06/19/2012 07/11/2023 Overview (07/11/2023): Dx updated per 2019 IMO Load Retinal hole or tear, right 06/19/201206/27 Pseudophakia 12/03/2011 07/11/2023 Senile nuclear sclerosis 12/03/2011 024 Immunizations Name Administration Dates Next Due BLANCA WILLIAMSON 12+YR 30MCG/0.3mL 03/05/2023 Social History Tobacco Use Types Packs/Day Years Used Date Smoking Tobacco: Never Passive Smoke Exposure: Past Smokeless Tobacco: Never Alcohol Use Standard Drinks/Week Comments Never 0 (1 standard drink = 0.6 oz pur e alcohol) Sex and Gender Information Value Date Recorded Sex Assigned at Not on file Gender Identity Not on file Sexual Orientation Not on file Last Filed Vital Signs Vital Sign Reading Time Taken Comments Blood Pressure 130/70 07/11/2023 1:19 PM ART INSTRUCTOR Pulse - - Temperature - - Respiratory Rate - - Oxygen Saturation - - Inhaled Oxygen Concentration - - Weight 79.8 kg (176 lb) 07/11/2023 1:19 PM ART INSTRUCTOR Height 170.2 cm (5' 7 ) 07/11/2023 1:19 PM ART INSTRUCTOR Body Mass Index 27.57 07/11/2023 1:19 PM ART INSTRUCTOR Plan of Treatment Not on file Care Teams Assistant Floor Covering Printer Relationship Specialty Start Date End Date Manuel Salcedo DO [address] [place] [address] PCP - General Family Medicine 07/11/23
--- OUTSIDE RECORDS SUMMARY | 2024-07-20 16:29 | XMS_ITS | Encounter Summary ---
Author Organization [facility] Address [address] [facility] [place] [address] Care Team Providers Care Automotive Service Professional Name Role Phone Taqueria Singleton MD Primary Care Provider + [phone] Manuel Salcedo DO Primary Care Provider [phone] Encounter Details Date Type Department Care Team (Late st Contact Info) Description 12/05/2021 Lab Requisition [facility] Pathology Lab [address] [place] [address] Yajaira Rao MD [facility] [address] [address] Illness, unspecified Social History Tobacco Use Types Packs/Day Years Used Date Smoking Tobacco: Never Assessed Sex and Gender Information Value Date Recorded Sex Assigned at Not on file Gender Identity Not on file Sexual Orientation Not on file documented as of this encounter Plan of Treatment Not on file documented as of this encounter Procedures Procedure Name Priority Date/Time Associated Diagnosis Comments BONE MARROW BIOPSY (STL) Routine 12/01/2021 8:30 AM CDT Illness, unspecified documented in this encounter Results * BONE MARROW BIOPSY (STL) (12/01/2021 8:30 AM CDT) Case Report Bone Marrow Patholog y Report Case: [id number] Authorizing Provider: Yajaira Rao MD Collected: 12/01/2021 08:30 AM Ordering Location: [facility] Pathology Lab Received: 12/05/2021 12:38 PM Pathologist: Bhavik Avilez MD Specimens: A) - Bone Marrow Clot B) - Bone Marrow Core 12/06/2021 2:45 PM [facility] Final Diagnosis Bone marrow, aspirate, clot section, and core biopsy: - Slightly hypocellular marrow with maturing trilineage hematopoiesis. - No evidence of lymphoma or high-grade myeloid neoplasm. - See description. Peripheral blood smear: - Normocytic anemia. - See description. 12/06/2021 2:45 PM [facility] Comment No overt dyspoiesis is seen in this case. Immunohistochemistry is performed to assess staining cells in an architectural context. CD34 and CD117 are negative for increased blasts. CD61 highlights normal numbers of megakaryocytes. Pancytokeratin is negative for metastatic carcinoma. 12/06/2021 2:45 PM [facility] Peripheral Smear Description RBC: normocytic anemia. WBC: normal in number and morphology. Platelets: normal in number and morphology. 12/06/2021 2:45 PM [facility] Bone Marrow Aspirate Differential count (200 cells): normal differential count. Specimen quality: some hemodilution. Spicules: none seen, but megakaryocytes are present. Trilineage Hematopoiesis: present. Myeloid:Erythroid ratio: normal. Myeloid Maturation: normal. Erythroid Maturation: normal. Megakaryocyte morphology: small. 12/06/2021 2:45 PM [facility] Bone Marrow Core Biopsy and Clot Section Description Specimen quality: adequate with 1.7 cm of evaluable marrow. Cellularity: Variable, overall ~30% % Trilineage Hematopoiesis: present. Myeloid to Erythroid ratio: normal. Myeloid maturation and localization: normal. Erythroid maturation and localization: normal. Megakaryocyte number: normal. Megakaryocyte distribution: small. Lymphoid aggregates: absent. Bone trabeculae: normal. Blood vessels: normal. Plasma cells: normal. Iron: decreased in decalcified specimen. Clot section marrow particles: numerous. Clot section morphology: similar to core biopsy. 12/06/2021 2:45 PM [facility] Flow Cytometry Summary Bone marrow, flow cytometry: - No clonal B-cell or increased blast population identified 12/06/2021 2:45 PM CDT [facility] Clinical History History of cancer. 12/06/2021 2:45 PM T [facility] Materials Received Received are 23 slide(s) and 4 blocks (A1, A2, A3, B1) labeled [id number] along with a copy of the outside pathology report. [place] [address]. All original materials are returned to the referring institution, along with a copy of our final report. 12/06/2021 2:45 PM CDT [facility] Disclaimer The performance characteristics of all immunohistochemical and indirect immunofluorescence stains (if any) cited in this report were determined by the Histopathology Laboratory of [facility]. Some of these tests were developed by our own laboratory and have not been cleared or approved by the US Food and Drug Administration. The FDA does not require this test to go through premarket FDA review. These tests are used for clinical purposes. They should not be regarded as investigational or for research. This laboratory is certified under the Clinical Laboratory Improvement Amendments (CLIA) as qualified to perform high complexity clinical laboratory testing. This case has been personally reviewed and interpreted by the attending (teaching) pathologist. 12/06/2021 2:45 PM CDT [facility] Embedded Images 12/06/2021 2:45 PM CDT [facility] Pathology/Cytology BONE MARROW SPECIMEN / Unknown 12/01/2021 8:30 AM CDT 12/05/2021 12:38 PM CDT Miscellaneous samples (specimen) BONE MARROW SPECIMEN / Unknown 12/01/2021 8:30 AM CDT 12/05/2021 12:38 PM CDT Yajaira Rao MD LAB - PATHOLOGY/CYTO LOGY ORDERABLES [facility] [address] [place], [place] [id number] [place] [address] documented in this encounter Visit Diagnoses Diagnosis Illness, unspecified documented in this encounter Care Teams Automotive Service Professional Relationship Specialty Start Date End Date Taqueria Singleton MD [address] [place] [address] PCP - General 06/19/21 07/10/23 Manuel Salcedo DO [address] [place] [address] PCP - General Family Medicine 07/11/23 documented as of this encounter
--- OUTSIDE RECORDS SUMMARY | 2024-07-20 16:29 | XMS_ITS | Encounter Summary ---
Author Organization [facility] Address [address] [facility] [place] [address] Care Team Providers Care Manager Retail Sales Name Role Phone Taqueria Singleton MD Primary Care Provider [phone] Manuel Salcedo DO Primary Care Provider [phone] Encounter Details Date Type Department Care Team (Late st Contact Info) Description 12/01/2021 Lab Requisition [facility] Pathology Lab [address] [place] [address] Yajaira Rao MD [facility] [address] [address] Iron deficiency anemia secondary to blood loss (chronic) Social History Tobacco Use Types Packs/Day Years Used Date Smoking Tobacco: Never Assessed Sex and Gender Information Value Date Recorded Sex Assigned at Not on file Gender Identity Not on file Sexual Orientation Not on file documented as of this encounter Plan of Treatment Not on file documented as of this encounter Procedures Procedure Name Priority Date/Time Associated Diagnosis Comments FLOW CYTOMETRY BONE MARROW Routine 12/01/2021 8:35 AM CDT Iron deficiency anemia secondary to blood loss (chronic) documented in this encounter Results * FLOW CYTOMETRY BONE MARROW (12/01/2021 8:35 AM CDT) Case Report Flow Cytometry Case: [id number] Authorizing Provider: Yajaira Rao MD Collected: 12/01/2021 08:35 AM Ordering Location: [facility] Pathology Lab Received: 12/01/2021 03:48 PM Pathologist: Bhavik Avilez MD Specimen: Bone Marrow 12/04/2021 9:26 AM [facility] Final Diagnosis Bone marrow, flow cytometry: - No clonal B-cell or increased blast population identified 12/04/2021 9:26 AM [facility] Flow Cytometry Interpretation The bone marrow specimen has a viability of 97%. The lymphocyte, dim CD45, monocyte, and granulocyte gooden are normal in relative proportion. Within the lymphocyte gate, there is no monotypic B-cell population identified (kappa: lambda ratio = 2:1). There is no expanded T-cell population seen. By CD34, ~4% of all events analyzed are blasts. A bone marrow aspirate smear prepared from the flow cytometry specimen is reviewed for lead quality control technician purposes. 12/04/2021 9:26 AM [facility] Flow Cytometry Results Differential Result Comment Flow Cell Count /uL 18,600 Total Viability % 96.8 Lymphocytes % 30 Dim CD45 Region % 11 Monocytes % 18 Granulocytes % 40 12/04/2021 9:26 AM [facility] Reason for test Iron deficiency anemia secondary to blood loss (chronic) 280.0 12/04/2021 9:26 AM [facility] Client Specimen ID # [id number] 12/04/2021 9:26 AM [facility] Number of markers 10 were performed. A-2 Flow CD10 A-3 Flow CD13 A-5 Flow CD20 A-1 Flow CD5 A-4 Flow CD19 A-6 Flow CD33 A-7 Flow CD34 A-8 Flow CD45 A-9 Duncombe+CD19+ A-10 Lambda+CD19+ 12/04/2021 9:26 AM [facility] Disclaimer Test performed at [facility], [address] [place] [address], [id number]. *The established laboratory minimum viability is 70%. Values below the minimum may result in the failure to find an abnormal population of cells. This test was developed and its performance characteristics determined by the Flow Cytometry Laboratory. It has not been cleared by the [place] Food and Drug Administration (FDA). The FDA has determined that such clearance or approval is not necessary. This test is used for clinical purposes. It should not be regarded as investigational or for research. This laboratory is regulated under the Clinical Laboratory Improvement Amendments of 1998 (CLIA) as a qualified to perform high complexity clinical testing. 12/04/2021 9:26 AM CDT [facility] Embedded Images 9:26 AM CDT [facility] Pathology/Cytolo gy BONE MARROW SPECIMEN / Unknown 12/01/2021 8:35 AM CDT 12/01/2021 3:48 PM CDT Yajaira Rao MD LAB - PATHOLOGY/CYTO LOGY ORDERABLES Performing Organization Address City/State/[facility] Co de Phone Number [facility] [address] [phone] documented in this encounter Visit Diagnoses Diagnosis Iron deficiency anemia secondary to blood loss (chronic) documented in this encounter Care Teams Manager Retail Sales Relationship Specialty Start Date End Date Taqueria Singleton MD [address] [place] [address] PCP - General 06/19/21 07/10/23 Manuel Salcedo DO [address] [place] [phone] PCP - General Family Medicine 07/11/23 documented as of this encounter
--- OUTSIDE RECORDS SUMMARY | 2024-07-20 16:29 | XMS_ITS | Encounter Summary ---
Author Organization [facility] Address [address] [place] [address] Care Team Providers Care Desk Reporter Name Role Phone Manuel Salcedo DO Primary Care Provider [phone] Encounter Details Date Type Department Care Team (Late Contact Info) Description 07/18/1999 Outpatient Historical [facility] Internal Medicine [facility] and [address] [place] [address] Hyun Romo MD [address] [facility] [address] [place] [address] Social History Tobacco Use Types Packs/Day Years Used Date Smoking Tobacco: Never Assessed Comments Unknown Sex and Gender Information Value Date Recorded Sex Assigned at Not on file Legal Sex Female 4:40 AM BLEACHER LARD Gender Identity Not on file Sexual Orientation Not on file documented as of this encounter Plan of Treatment Upcoming Encounters Date Type Department Care Team (Late Contact Info) Description 07/27/2024 11:45 AM BLEACHER LARD Office Visit [facility] Oncology and Hematology - [place] [address] [facility] [address] [place] [address] Samm Canas MD [address] [facility] [address] [place] [address] documented as of this encounter Visit Diagnoses Not on filedocumented in this encounter Care Teams Desk Reporter Relationship Specialty Start Date End Date Manuel Salcedo DO [address] [phone] PCP - General Family Practice 01/17/23 documented as of this encounter
--- OUTSIDE RECORDS SUMMARY | 2024-07-20 16:29 | XMS_ITS | Clinical Summary ---
Author Organization [facility] Address [address] [facility] [place] [address] Care Team Providers Care Inspector Final Assembly Electrical Name Role Phone ShelbylucianManuel DO Primary Care Provider [phone] Source Comments [facility],non-owned Affiliates and Associated Physician Practices is amultiple site organization consisting of ambulatory clinics and hospital sitesin [place], [place], [place] and [place]. This disclosure is being madepursuant to the Care Everywhere program and may not contain all information available regarding this patient. Last updated 18.[facility] Allergies Active Allergy Reactions Criticality Noted Date [...] (07/11/2023): Added automatically from request for surgery [id number] Hyperlipidemia 11/14/2021 07/11/2023 Chronic anemia 11/10/2021 07/11/2023 [...] tongue Left partial glossectomy with primary closure ([place] 10/03/2015) Left digastric muscle flap closure of pharyngotomy ([place] 10/03/2015) Left selective neck dissection levels 1,2, and 3 ([place] 10/03/2015) 2. Diagnosis. Left floor of mouth [...] Immunizations Name Administration Dates Next Due BLANCA PFIZER 12+YR 30MCG/0.3mL 03/05/2023 Family History Medical History Relation Name Comments CAD (Coronary Artery Disease) Brother 1 Depression Brother 1 Diabetes - Type 2 Brother 1 Hypertension Brother 1 Diabetes - Type 2 Brother 2 CAD (Coronary Artery Disease) Father Diabetes - Type 2 Father Hypertension Father Diabetes - Type 2 Maternal Grandfather Hypertension Maternal Grandfather Diabetes - Type 2 Maternal Grandmother Hypertension Maternal Grandmother Arthritis - Osteo Mother CAD (Coronary Artery Disease) Mother Diabetes - Type 2 Mother Heart Failure Mother Hypertension Mother Hypertension Paternal Grandfather Hypertension Paternal Grandmother CAD (Coronary Artery Disease) Sister CVA Sister Depression Sister Diabetes - Type 2 Sister Hypertension Sister Relation Name Status Comments Brother 1 Alive Brother 2 Alive Father Maternal Grandfather Maternal Grandmother Mother Paternal Grandfather Paternal Grandmother Sister Alive Social History Tobacco Use Types Packs/Day Years [...] Comments Blood Pressure 130/70 07/11/2023 1:19 PM BUSINESS DEVELOPMENT SPECIALIST Pulse - - Temperature - - Respiratory Rate - - Oxygen Saturation - - Inhaled Oxygen Concentration - - Weight 79.8 kg (176 lb) 07/11/2023 1:19 PM BUSINESS DEVELOPMENT SPECIALIST Height 170.2 cm (5' 7 ) 07/11/2023 1:19 PM BUSINESS DEVELOPMENT SPECIALIST Body Mass Index 27.57 07/11/2023 1:19 PM BUSINESS DEVELOPMENT SPECIALIST Plan of Treatment Health Maintenance Due Date Last Done Comments HEPATITIS C SCREENING 07/08/1963 DIABETES-SERUM CREATININE 1964 DTAP/TDAP/TD VACCINES (1 - Tdap) 1965 PNEUMOCOCCAL VACCINE 50+ (1 of 2 - PCV) 1965 ZOSTER VACCINE (1 of 2) 1996 Respiratory Syncytial Virus (RSV) Vaccine Pt: or over 60 yrs (1 - 1-dose 75+ series) 2021 DIABETES RETINOPATHY SCREENING 07/11/2023 07/09/2012, 06/19/2012 DIABETES-FOOT EXAM WITH MONOFILAMENT 07/11/2023 DIABETES-HGB A1C 07/11/2023 COVID-19 VACCINE ( season) 2024 03/05/2023, 03/10/2022, 09/13/2021, Additional history exists INFLUENZA VACCINE (#1) 2024 , 03/10/2022, 02/22/2021, Additional history exists DEPRESSION SCREENING 05/27/2024 DIABETES - URINE PROTEIN SCREENING 05/27/2024 MEDICARE AWV CALENDAR YEAR 2024 BONE DENSITY TESTING Completed 09/27/2022, 06/23/19 13 HEPATITIS B VACCINE Aged Out No longe r eligible based on patient's age to complete this topic HIB VACCINE Aged Out No longer eligi ble based on patient's age to complete this topic HPV VACCINE Aged Out No longer eligi ble based on patient's age to complete this topic MENINGOCOCCAL (Group B) VACCINE Aged Out No longer eligible based on patient's age to complete this topic MENINGOCOCCAL VACCINE Aged Out No reginald asiya eligible based on patient's age to complete this topic Care Teams Inspector Final Assembly Electrical Relationship Specialty Start Date End Date Manuel Salcedo DO [address] [place] [address] PCP - General Family Medicine 07/11/23
--- OUTSIDE RECORDS SUMMARY | 2024-07-20 16:29 | XMS_ITS | Encounter Summary ---
Author Organization [facility] Address [address] [place] [address] Care Team Providers Care Planning And Analysis Manager Name Role Phone Manuel Salcedo DO Primary Care Provider [phone] Encounter Details Date Type Department Care Team (Late Contact Info) Description 06/20/1999 Outpatient Historical [facility] Internal Medicine [facility] and [address] [place] [address] Hyun Romo MD [address] [facility] [address] [place] [address] Social History Tobacco Use Types Packs/Day Years Used Date Smoking Tobacco: Never Assessed Comments Unknown Sex and Gender Information Value Date Recorded Sex Assigned at Not on file Legal Sex Female 4:40 AM REGIONAL PSYCHIATRIC DIRECTOR Gender Identity Not on file Sexual Orientation Not on file documented as of this encounter Plan of Treatment Upcoming Encounters Date Type Department Care Team (Late Contact Info) Description 07/27/2024 11:45 AM REGIONAL PSYCHIATRIC DIRECTOR Office Visit [facility] Oncology and Hematology - [place] [address] [facility] [address] [place] [address] Samm Canas MD [address] [facility] [address] [place] [address] documented as of this encounter Visit Diagnoses Not on filedocumented in this encounter Care Teams Planning And Analysis Manager Relationship Specialty Start Date End Date Manuel Salcedo DO [address] [phone] PCP - General Family Practice 01/17/23 documented as of this encounter
--- OUTSIDE RECORDS SUMMARY | 2024-07-20 16:29 | XMS_ITS | Clinical Summary ---
Author Organization [facility] Address [address] [place] [address] Care Team Providers Care Blockman Name Role Phone Manuel Salcedo Primary Care Provider [phone] Allergies Active Allergy Reactions Criticality Noted Date Comments Aspirin Unknown Low 12/12/2021 Penicillins Rash Low 12/23/2013 Pseudoephedrine Other (See Comments),Nausea and Vomiting Low 12/12/2021 Reaction: Nausea, Vomiting, Sulfa (Sulfonamide Antibiotics) Rash Low 12/23/2013 Medications aspirin (DEBORAH CHEWABLE) 81 mg Tablet, Chewable Take 81 mg by mouth daily. Active atenolol (TENORMIN) 50 mg tablet Take 50 mg by mouth daily. Active metFORMIN (GLUCOPHAGE) 500 mg tablet Take 500 mg by mouth 2 times daily with meals. Active simvastatin (ZOCOR) 20 mg tablet Take 20 mg by mouth Daily LATE. Active MULTIVITAMINS WITH FLUORIDE (MULTI-VITAMIN ORAL) Take by mouth. Activ e escitalopram oxalate (LEXAPRO) 5 mg tablet Take 5 mg by mouth daily. Active insulin glargine (LANTUS SOLOSTAR U-100 INSULIN) 100 unit/mL pen syringe Inject by subcutaneous injection. Active pioglitazone (ACTOS) 30 mg tablet Take 30 mg by mouth daily with breakfast. Active losartan-hydroC HLOROthiazide (HYZAAR) 100-25 mg tablet TAKE 1 TABLET PO EVERY DAY 0 9 Active tamoxifen (NOLVADEX) 10 mg tablet Take 5 mg by mouth daily. 3 Active Active Problems Problem Noted Date Diagnosed Date Chronic anemia 11/10/2021 Breast inflammation 12/23/2013 Encounters Date Type Department Care Team Description 07/14/2024 External Device Data ST[facility] ABSTRACTION Provider, Abstract 06/23/2024 External Device Data [facility] ABSTRACTION Provider, Abstract 06/17/2024 External Device Data [facility] ABSTRACTION Provider, Abstract 06/17/2024 External Device Data [facility] ABSTRACTION Provider, Abstract from Last 3 Months Family History Medical History Relation Name Comments Diabetes Brother 1 Hypertension Brother 1 Hypertension Brother 2 Diabetes Father Diabetes Mother Diabetes Sister Heart Disease Sister Hypertension Sister Stroke Sister Relation Name Status Comments Brother 1 Brother 2 Father Mother Sister Social History Tobacco Use Types Packs/Day Years Used Date Smoking Tobacco: Never Smokeless Tobacco: Never Tobacco Cessation:Counseling Given: Not Answered Alcohol Use Standard Drinks/Week Comments No 0 (1 standard drink = 0.6 oz pur e alcohol) Comments No Sex and Gender Information Value Date Recorded Sex Assigned at Not on file Legal Sex Female 4:40 AM SUPPLY CHAIN VICE PRESIDENT Gender Identity Not on file Sexual Orientation Not on file Occupation Industry Job Start Date Job End Date Not on file Not on file Not on file Not on file Last Filed Vital Signs Vital Sign Reading Time Taken Comments Blood Pressure 120/68 01/20/2024 10:48 AM CDT Pulse 68 01/20/2024 10:48 AM CDT Temperature 36.5 C (97.7 F) 01/20/2024 10:48 AM CDT Respiratory Rate 16 01/20/2024 10:48 AM CDT Oxygen Saturation 98% 01/20/2024 10:48 AM CDT Inhaled Oxygen Concentration - - Weight 75.8 kg (167 lb) 01/20/2024 10:48 AM CDT Height 170.2 cm (5' 7 ) 12/12/2021 8:38 AM CDT Body Mass Index 26.16 12/12/2021 8:38 AM CDT Plan of Treatment Upcoming Encounters Date Type Department Care Team (Late st Contact Info) Description 07/27/2024 11:45 AM SUPPLY CHAIN VICE PRESIDENT Office Visit [facility] Oncology and Hematology - [place] [address] [facility] [address] [place] [address] [place] [address] Samm Canas MD [address] [facility] [address] [place] [address] Health Maintenance Due Date Last Done Comments DIABETES ANNUAL FOOT EXAM 1964 DIABETES MICROALBUMIN ANNUAL SCREEN 1964 LDL CHOLESTEROL ANNUAL 1964 DTAP/TDAP/TD VACCINES (1 - Tdap) 1965 PNEUMOCOCCAL VACCINE 65+ YEA RS (1 of 2 - PCV) 1965 ZOSTER VACCINE (1 of 2) 1996 DIABETES HBA1C Q 6 MONTHS 07/03/20192018, 07/03/2018, 02/21/2018, Additional history exists DIABETES ANNUAL RETINAL EXAM 05/04/202001/2019, 03/12/2019, 03/12/2019, Additional history exists RSV VACCINE (60+ or ) (1 - 1-dose 75+ series) 2021 INFLUENZA VACCINE (#1) 2023 COVID-19 Vaccine (3 - 2023-2 5 season) 2024 03/05/2023, 09/13/2021 COLORECTAL SCREENING Discontinued 03/06/2017 Colorectal Cancer Screening Discontinued OSTEOPOROSIS SCREENING Completed , 09/27/2022, 08/17/2016, Additional history exists FIT-DNA Q 3 years Discontinued FIT/FOBT Q 1 year Discontinued Flex Sig/CT Colonography Q 5 years Discontinued Insurance [facility] [place] [place] [address] [employer] [facility] [place] Address: [place] [address] Care Teams Blockman Relationship Specialty Start Date End Date Manuel Salcedo DO [address] [phone] PCP - General Family Practice 01/17/23
--- OUTSIDE RECORDS SUMMARY | 2024-07-20 16:29 | XMS_ITS | Encounter Summary ---
Author Organization [facility] Address [address] [place] [address] Care Team Providers Care Vessel Master Name Role Phone Manuel Salcedo DO Primary Care Provider [phone] Encounter Details Date Type Department Care Team (Late Contact Info) Description 07/03/1999 Outpatient Historical [facility] Internal Medicine [facility] and [address] [place] [address] Hyun Romo MD [address] [facility] [address] [place] [address] Social History Tobacco Use Types Packs/Day Years Used Date Smoking Tobacco: Never Assessed Comments Unknown Sex and Gender Information Value Date Recorded Sex Assigned at Not on file Legal Sex Female 4:40 AM TEMPERING KILN TENDER Gender Identity Not on file Sexual Orientation Not on file documented as of this encounter Plan of Treatment Upcoming Encounters Date Type Department Care Team (Late Contact Info) Description 07/27/2024 11:45 AM TEMPERING KILN TENDER Office Visit [facility] Oncology and Hematology - [place] [address] [facility] [address] [place] [address] Samm Canas MD [address] [facility] [address] [place] [address] documented as of this encounter Visit Diagnoses Not on filedocumented in this encounter Care Teams Vessel Master Relationship Specialty Start Date End Date Manuel Salcedo DO [address] [phone] PCP - General Family Practice 01/17/23 documented as of this encounter
--- OUTSIDE RECORDS SUMMARY | 2024-07-20 16:29 | XMS_ITS | Patient Health Summary ---
Author Organization [facility] Address [address] [facility] [place] [address] Care Team Providers Care Vehicle Inspector Name Role Phone Manuel Salcedo DO Primary Care Provider [phone] Note from [facility],non-owned Affiliates and Associated Physician Practices is amultiple site organization consisting of ambulatory clinics and hospital sitesin [place], [place], [place] and [place]. This disclosure is being madepursuant to the Care Everywhere program and may not contain all information available regarding this patient. Last updated 18.[facility] Allergies * Aspirin(GI Discomfort,Unknown) -Low Criticality * Penicillins(Other,Rash) -Medium Criticality * Sulfa Drugs(Rash) -Medium Criticality Medications * Be aware that medications may not be up to date on this document. Alwaysverify current medications with the patient. * simvastatin (Zocor) 20 MG tablet(Started 06/25/2023) Take 1 (one) tablet by mouth every evening * losartan-hydroCHLOROthiazide (Hyzaar) 100-25 MG tablet(Started 06/25/2023) Take 1 (one) tablet by mouth once daily * escitalopram (Lexapro) 5 MG tablet(Started 06/25/2023) Take 1 (one) tablet by mouth once daily * carvedilol (Coreg) 12.5 MG tablet(Started 03/29/2023) Take 1 (one) tablet by mouth 2 times daily with morning and evening meal * aspirin EC (Ecotrin) 81 MG tablet Take 1 (one) tablet by mouth every morning * insulin glargine (Lantus/Semglee) 100 units/mL pen 10 (ten) Units to 15 (fifteen) Units at bedtime * Semglee, yfgn, pen(Started 03/29/2023) 20 UNIT (0.2 ML) SUBCUTANEOUSLY DAILY * Multiple Vitamin (Multi-Day Vitamins) TABS Take 1 (one) tablet by mouth once daily * metFORMIN (Glucophage) 500 MG tablet Take 1 (one) tablet by mouth * vitamin D3 (Cholecalciferol) 25 MCG (1000 UNITS) tablet Take 1 (one) tablet by mouth once daily * ferrous sulfate 325 (65 FE) MG tablet Take 1 (one) tablet by mouth once daily * fluconazole (Diflucan) 200 MG tablet(Started 07/11/2023) Diflucan 200 mg tablet, one by mouth every other day for three doses. 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 11/07/2017 07/11/2023 Squamous cell carcinoma of tongue 09/09/2015 07/11/2023 Unknown and unspecified causes of morbidity 05/2707/11/2023 Breast inflammation 12/23/2013 07/11/2023 Depression 10/10/2013 07/11/2023 Type 2 diabetes mellitus 10/10/2013 024 Gastroesophageal reflux disease with esophagitis 10/10/2013 07/11/2023 Idiopathic hypertension 07/09/2012 07/11/19 24 Vitreous detachment 07/09/2012 07/11/2023 Epiretinal membrane (ERM) of both eyes 3 07/11/2023 Hypertensive retinopathy of both eyes 06/19/2012 07/11/2023 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 06/19/2012 07/11/2023 Proliferative diabetic retinopathy 06/19/2012 07/11/2023 Retinal hole or tear, right 06/19/201206/27 Pseudophakia 12/03/2011 07/11/2023 Senile nuclear sclerosis 12/03/2011 024 Immunizations * COVID PFIZER 12+YR 30MCG/0.3mL(Given 03/05/2023) Social History Tobacco Use Types Packs/Day Years [...] Comments Blood Pressure 130/70 07/11/2023 1:19 PM MELT SUPERINTENDANT Pulse - - Temperature - - Respiratory Rate - - Oxygen Saturation - - Inhaled Oxygen Concentration - - Weight 79.8 kg (176 lb) 07/11/2023 1:19 PM MELT SUPERINTENDANT Height 170.2 cm (5' 7 ) 07/11/2023 1:19 PM MELT SUPERINTENDANT Body Mass Index 27.57 07/11/2023 1:19 PM MELT SUPERINTENDANT Procedures * WET PREP - POINT OF CARE (AMB) [facility](Performed 07/11/2023) Performed for Vaginal discharge * PH FLUID - POCT (AMB) [facility](Performed 07/11/2023) Performed for Vaginal discharge * FUNGUS AUSTIN - POINT OF CARE (AMB) [facility](Performed 07/11/2023) Performed for Vaginal discharge * CULTURE YEAST(Performed 07/11/2023) Performed for Vaginal discharge * FLOW CYTOMETRY BONE MARROW(Performed 12/01/2021) Performed for Iron deficiency anemia secondary to blood loss (chronic) * BONE MARROW BIOPSY (STL)(Performed 12/01/2021) Performed for Illness, unspecified * GROSS + MICRO EXAM(Performed 02/19/2007) Results * PH FLUID - POCT (AMB) [facility] (07/11/2023 1:56 PM MELT SUPERINTENDANT) pH Vaginal 5.0 [facility] [address] Fluid ENTIRE VAGINA / Unknown 07/11/2023 1:56 PM MELT SUPERINTENDANT Chantal Ken APRN-PHYSIOTHERAPIST'S ASSISTANT LAB - POINT OF CARE ORDERABLES [facility] [address] [place] [address], [facility] [phone] * WET PREP - POINT OF CARE (AMB) [facility] (07/11/2023 1:56 PM MELT SUPERINTENDANT) pH Wet Prep 5.[address] [facility] [address] Yeast Wet Prep yes [facility] [address] Comment:buds Trichomonas Wet Prep None [facility] [address] Bacteria Wet Prep No [facility] [address] Whiff Test no [facility] [address] BODY FLUID SPECIMEN / Unknown 07/11/2023 1:56 PM MELT SUPERINTENDANT Chantal Ken APRN-[facility] - POINT OF CARE ORDERABLES Performing Organization Address City/[facility]/ZIP Co de Phone Number [facility] [address] [place] [address], [facility] [phone] * FUNGUS AUSTIN - POINT OF CARE (AMB) [facility] (07/11/2023 1:54 PM MELT SUPERINTENDANT) [place] Prep Yes [facility] [address] Comment:few buds Fluid BODY FLUID SPECIMEN / Unknown 07/11/2023 1:54 PM MELT SUPERINTENDANT Chantal Ken SPEECH AND LANGUAGE ASSISTANT-[facility] - POINT OF CARE ORDERABLES [facility] [address] [place] [address], [facility] [phone] * CULTURE YEAST (07/11/2023) Culture Yeast with ID [facility] Comment: CULTURE, YEAST, W/IDENTIFICATION Micro Number: [id number] Test Status: Final Specimen Source: [place] Specimen Quality: Adequate Result: No yeast isolated Test Performed at: [facility] [address] DEE FORRESTER MD Microbiology ENTIRE VULVA / Unknown 07/11/2023 07/12/2023 4:47 AM MELT SUPERINTENDANT Chantal Ken SPEECH AND LANGUAGE ASSISTANT-PHYSIOTHERAPIST'S ASSISTANT LAB - MICRO BIOLOGY ORDERABLES [facility] [address] [place] [address] * FLOW CYTOMETRY BONE MARROW (12/01/2021 8:35 AM CDT) Case Report Flow Cytometry Case: [id number] Authorizing Provider: Yajaira Rao MD Collected: 12/01/2021 08:35 AM Ordering Location: [facility] Pathology Lab Received: 12/01/2021 03:48 PM Pathologist: Bhavik Avilez MD Specimen: Bone Marrow 12/04/2021 9:26 AM CDT [facility] Final Diagnosis Bone marrow, flow cytometry: - No clonal B-cell or increased blast population identified 12/04/2021 9:26 AM CDT [facility] Flow Cytometry Interpretation The bone [...] the flow cytometry specimen is reviewed for quality engineer purposes. 12/04/2021 9:26 AM CDT [facility] Flow Cytometry Results Differential Result Comment Flow Cell Count /uL 18,600 Total Viability % 96.8 Lymphocytes % 30 Dim CD45 Region % 11 Monocytes % 18 Granulocytes % 40 12/04/2021 9:26 AM CDT [facility] Reason for test Iron deficiency anemia secondary to blood loss (chronic) 280.0 12/04/2021 9:26 AM CDT [facility] Client Specimen ID # [id number] 12/04/2021 9:26 AM CDT [facility] Number of markers 10 were performed. A-2 Flow CD10 A-3 Flow CD13 A-5 Flow CD20 A-1 Flow CD5 A-4 Flow CD19 A-6 Flow CD33 A-7 Flow CD34 A-8 Flow CD45 A-9 Blodgett+CD19+ A-10 Lambda+CD19+ 12/04/2021 9:26 AM CDT [facility] Disclaimer Test performed at [facility], [address] [place], [place], [address]. *The established laboratory minimum viability is 70%. [...] complexity clinical testing. 12/04/2021 9:26 AM CDT [facility] Embedded Images 9:26 AM CDT [facility] Pathology/Cytolo gy BONE MARROW SPECIMEN / Unknown 12/01/2021 8:35 AM CDT 12/01/2021 3:48 PM CDT Yajaira Rao MD LAB - PATHOLOGY/CYTO LOGY ORDERABLES [facility] [address] [place] [address] * BONE MARROW BIOPSY (STL) (12/01/2021 8:30 AM CDT) Case Report Bone Marrow Patholog y Report Case: [id number] Authorizing Provider: Yajaira Rao MD Collected: 12/01/2021 08:30 AM Ordering Location: [facility]ology Lab Received: 12/05/2021 12:38 PM Pathologist: Bhavik Avilez MD Specimens: A) - Bone Marrow Clot B) - Bone Marrow Core 12/06/2021 2:45 PM CDT [facility] Final Diagnosis Bone marrow, aspirate, clot section, and core biopsy: - Slightly hypocellular marrow with maturing trilineage hematopoiesis. - No evidence of lymphoma or high-grade myeloid neoplasm. - See description. Peripheral blood smear: - Normocytic anemia. - See description. 12/06/2021 2:45 PM [facility] Comment No overt dyspoiesis is seen in this case. Immunohistochemistry is performed to assess staining cells in an architectural context. CD34 and CD117 are negative for increased blasts. CD61 highlights normal numbers of megakaryocytes. Pancytokeratin is negative for metastatic carcinoma. 12/06/2021 2:45 PM [facility] Peripheral Smear Description RBC: normocytic anemia. WBC: normal in number and morphology. Platelets: normal in number and morphology. 12/06/2021 2:45 PM [facility] Bone Marrow Aspirate Differential count (200 cells): normal differential count. Specimen quality: some hemodilution. Spicules: none seen, but megakaryocytes are present. Trilineage Hematopoiesis: present. Myeloid:Erythroid ratio: normal. Myeloid Maturation: normal. Erythroid Maturation: normal. Megakaryocyte morphology: small. 12/06/2021 2:45 PM [facility] Bone Marrow Core Biopsy and [...] similar to core biopsy. 12/06/2021 2:45 PM [facility] Flow Cytometry Summary Bone marrow, flow cytometry: - No clonal B-cell or increased blast population identified 12/06/2021 2:45 PM [facility] Clinical History History of cancer. 12/06/2021 2:45 PM [facility] Materials Received Received are 23 slide(s) and 4 blocks (A1, A2, A3, B1) labeled [id number] along with a copy of the outside pathology report. The materials originate from [address] [place] [address]. All original materials are returned to the referring institution, along with a copy of our final report. 12/06/2021 2:45 PM CDT [facility] Disclaimer The performance characteristics of all immunohistochemical and indirect immunofluorescence stains (if any) cited in this report were determined by the Histopathology Laboratory of [facility]. Some of these tests were developed by [...] attending (teaching) pathologist. 12/06/2021 2:45 PM CDT [facility] Embedded Images 12/06/2021 2:45 PM CDT [facility] Pathology/Cytology BONE MARROW SPECIMEN / Unknown 12/01/2021 8:30 AM CDT 12/05/2021 12:38 PM CDT Miscellaneous samples (specimen) BONE MARROW SPECIMEN / Unknown 12/01/2021 8:30 AM CDT 12/05/2021 12:38 PM CDT Yajaira Rao MD LAB - PATHOLOGY/CYTO LOGY ORDERABLES Performing Organization Address [facility] [place] Phone Number [facility] [address] [phone] * GROSS + MICRO EXAM (02/19/2007 12:16 PM CDT) Result CASE NUMBER [id number] Comment: ORDERING PHYSICIAN FITO CENTENO SPECIMEN TYPE Uterus,tubes,ovary Surgeon DR. FITO CENTENO Gross Exam EMILIE EVANGELISTA Gross Report COPY TO INDICATION FOR PROCEDURE ENDOMETRIAL HYPERPLASIA OPERATION SINTIA WITH BSO GROSS THE SPECIMEN IS RECEIVED IN ONE CONTAINER LABELED WITH THE PATIENT'S NAME AND UTERUS, TUBES, OVARIES, CERVIX . THE SPECIMEN IS RECEIVED IN FORMALIN AND CONSISTS OF A 7 X 3.5 X 2.5 CM. PREVIOUSLY INCISED UTERINE CORPUS WITH ATTACHED CERVIX AND ATTACHED RIGHT AND LEFT OVARIES AND TUBES. THE UTERUS AND CERVIX WEIGH 40 GRAMS. THE SEROSA IS CONGESTED. SMOOTH AND GLISTENING WITH BULGING SEROSAL NODULES. THE ECTOCERVIX MEASURES 2.4 CM. IN DIAMETER. THE EXTERNAL OS IS SLIT-LIKE, 0.5 CM. IN LENGTH. THE ENDOCERVICAL CANAL MEASURES 2.2 CM. IN LENGTH. THE UTERINE CAVITY MEASURES APPROXIMATELY 3.5 X 1.5 CM. AND IS LINED BY GLISTENING SOFT, FERGUSON, RED ENDOMETRIUM THAT MEASURES 0.2 CM. IN GREATEST THICKNESS. THE MYOMETRIUM HAS A MAXIMUM THICKNESS OF 2 CM. COVERING AN AREA OF ONLY ABOUT 0.8 CM. THE MYOMETRIUM HAS A SLIGHT TRABECULATED APPEARANCE. IN ADDITION TO THE SEROSAL NODULES, THERE ARE AT LEAST THREE INTRAMURAL NODULES THAT MEASURE UP TO APPROXIMATELY 0.5 CM. THE RIGHT AND LEFT OVARIES MEASURE 2 X 1 X 1 CM. AND 2.2 X 1.1 X 1 CM. EXTERNAL SURFACES ARE SMOOTH, PINK, FERGUSON. THERE ARE FOCI OF ADHESIONS ON THE SURFACE OF THE LEFT OVARY AND THE CUT SURFACES DISPLAY A FEW CORPORA ALBICANTIA. THE RIGHT AND LEFT FALLOPIAN TUBES EACH HAVE FIMBRIA AT ONE END AND MEASURE 4 AND 4.3 CM. IN LENGTH, RESPECTIVELY AND EACH UP TO ABOUT 0.6 CM. IN DIAMETER. STOCK CONTROL SUPERVISOR SECTIONS OF THE SPECIMEN ARE SUBMITTED FOLLOWS A,B. ANTERIOR - POSTERIOR CERVIX, RESPECTIVELY C-E. ANTERIOR ENDOMYOMETRIUM AND SEROSA F-H. POSTERIOR ENDOMYOMETRIUM INCLUDING POSSIBLE MYOMAS I,J. RIGHT AND LEFT OVARIES AND TUBES, RESPECTIVELY LW/CS MICROSCOPIC EXAM MICROSCOPIC THE SECTIONS OF THE CERVIX SHOW NABOTHIAN CYST AND A MILD CHRONIC CERVICITIS. NO DYSPLASIA IS SEEN. THE ENDOMETRIUM SHOWS A SIMPLE CYSTIC HYPERPLASIA WITH MILD CYTOLOGIC ATYPIA. THE SECTIONS OF THE MYOMETRIUM SHOW NO WELL DEFINED LEIOMYOMAS. THE OVARIES AND FALLOPIAN TUBES ARE UNREMARKABLE. AB/[facility] [place] [place] DIAGNOSIS DIAGNOSIS [1] UTERUS, TUBES AND OVARIES, HYSTERECTOMY, BILATERAL SALPINGO OOPHORECTOMY -- CERVIX -NABOTHIAN CYSTS -MILD CHRONIC CERVICITIS. -- ENDOMETRIUM -SIMPLE HYPERPLASIA WITH ATYPIA -- MYOMETRIUM --NO PATHOLOGIC DIAGNOSIS [2] RIGHT AND LEFT OVARIES -- NO PATHOLOGIC DIAGNOSIS [3] RIGHT AND LEFT FALLOPIAN TUBES -- NO PATHOLOGIC DIAGNOSIS AB/[facility] [place] [place] Released By LORELEI MORIN CPT Code 53626 MISCELLANEOUS SAMPLES / Unknown 02/19/2007 12:16 PM CDT 02/19/2007 12:16 PM CDT Historical Provider LAB - PATHOLOGY/C YTOLOGY ORDERABLES Care Teams Vehicle Inspector Relationship Specialty Start Date End Date Manuel Salcedo DO [address] [place] [phone] PCP - General Family Medicine 07/11/23
--- OUTSIDE RECORDS SUMMARY | 2024-07-20 16:29 | XMS_ITS | Encounter Summary ---
Author Organization [facility] Address [address] [place] [address] Care Team Providers Care Farm Operations Technical Director Name Role Phone Manuel Salcedo DO Primary Care Provider [phone] Encounter Details Date Type Department Care Team (Late st Contact Info) Description 09/29/1999 Outpatient Historical [facility] ([facility] Internal Medicine [facility] and [address] [address] Douglas Bravo Social History Tobacco Use Types Packs/Day Years Used Date Smoking Tobacco: Never Assessed Comments Unknown Sex and Gender Information Value Date Recorded Sex Assigned at Not on file Legal Sex Female 4:40 AM MONKEY KEEPER Gender Identity Not on file Sexual Orientation Not on file documented as of this encounter Plan of Treatment Upcoming Encounters Date Type Department Care Team (Late st Contact Info) Description 07/27/2024 11:45 AM MONKEY KEEPER Office Visit [facility] Oncology and Hematology - [place] [address] [facility] [address] [place] [address] Samm Canas MD [address] [facility] [address] [place] [address] documented as of this encounter Visit Diagnoses Not on filedocumented in this encounter Care Teams Farm Operations Technical Director Relationship Specialty Start Date End Date Manuel Salcedo DO [address] [address] PCP - General Family Practice 01/17/23 documented as of this encounter
--- OUTSIDE RECORDS SUMMARY | 2024-07-20 16:29 | XMS_ITS | Encounter Summary ---
Author Organization [facility] Address [address] [place] [address] Care Team Providers Care Claim Adjuster Name Role Phone Manuel Salcedo DO Primary Care Provider [phone] Encounter Details Date Type Department Care Team (Late st Contact Info) Description 09/26/1999 Outpatient Historical [facility] Internal Medicine [facility] and [address] [place] [address] Jaelyn Mayo MD [address] [facility] [address] [place] [address] Social History Tobacco Use Types Packs/Day Years Used Date Smoking Tobacco: Never Assessed Comments Unknown Sex and Gender Information Value Date Recorded Sex Assigned at Not on file Legal Sex Female 4:40 AM LEAD TRAINER Gender Identity Not on file Sexual Orientation Not on file documented as of this encounter Plan of Treatment Upcoming Encounters Date Type Department Care Team (Late st Contact Info) Description 07/27/2024 11:45 AM LEAD TRAINER Office Visit [facility] Oncology and Hematology - [place] [address] [facility] [address] [place] [address] Samm Canas MD [address] [facility] [address] [place] [address] documented as of this encounter Visit Diagnoses Not on filedocumented in this encounter Care Teams Claim Adjuster Relationship Specialty Start Date End Date Manuel Salcedo DO [address] [address] PCP - General Family Practice 01/17/23 documented as of this encounter
--- OUTSIDE RECORDS SUMMARY | 2024-07-20 16:29 | XMS_ITS | Encounter Summary ---
Author Organization [facility] Address [address] [place] [address] Care Team Providers Care Adult Parole Officer Name Role Phone Manuel Salcedo DO Primary Care Provider [phone] Encounter Details Date Type Department Care Team (Late Contact Info) Description 07/04/1999 Outpatient Historical [facility] Internal Medicine [facility] and [address] [place] [address] Hyun Romo MD [address] [facility] [address] [place] [address] Social History Tobacco Use Types Packs/Day Years Used Date Smoking Tobacco: Never Assessed Comments Unknown Sex and Gender Information Value Date Recorded Sex Assigned at Not on file Legal Sex Female 4:40 AM CABLE SPLICER Gender Identity Not on file Sexual Orientation Not on file documented as of this encounter Plan of Treatment Upcoming Encounters Date Type Department Care Team (Late Contact Info) Description 07/27/2024 11:45 AM CABLE SPLICER Office Visit [facility] Oncology and Hematology - [place] [address] [facility] [address] [place] [address] Samm Canas MD [address] [facility] [address] [place] [address] documented as of this encounter Visit Diagnoses Not on filedocumented in this encounter Care Teams Adult Parole Officer Relationship Specialty Start Date End Date Manuel Salcedo DO [address] [id number] PCP - General Family Practice 01/17/23 documented as of this encounter
--- OUTSIDE RECORDS SUMMARY | 2024-07-20 16:29 | XMS_ITS | Referral Summary ---
Author Organization [facility] Address [address] [place] [id number] Care Team Providers Care Cold Type Composing Machine Operator Name Role Phone Manuel Salcedo DO Primary Care Provider [phone] Melissa Jeff NP Unavailable [phone] Samm Canas MD Unavailable [phone] Dandre Garrido MD Unavailable Franci Gilliam PhD Unavailable [phone] Linda Snider MD Unavailable [phone] Encounters Date Type Department Care Team Description 06/03/2024 9:00 AM PUSHER RUNNER Office Visit [facility] [address] [place] [phone] Linda Snider MD Ductal carcinoma in situ (DCIS) of right breast (Primary Dx); Lobular carcinoma in situ (LCIS) of right breast; Encounter for monitoring tamoxifen therapy; Prophylactic use of tamoxifen; 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 05/25/2024 11:00 AM PUSHER RUNNER - 05/25/2024 11:59 PM PUSHER RUNNER Hospital Encounter [facility] [address] [place] [address] Ductal carcinoma in situ (DCIS) of right breast; Lobular carcinoma in situ (LCIS) of right breast; 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 Discharge Disposition: Discharge to home or self care 05/01/2024 7:27 AM PUSHER RUNNER - 05/01/2024 11:59 PM PUSHER RUNNER Hospital Encounter [facility] [address] [place] [address] Anosmia Discharge Disposition: Discharge to home or self care 05/01/2024 9:00 AM PUSHER RUNNER Office Visit [facility] ([facility] - [facility] [address] [facility] [address] [place] [address] [place] [address] Eulalia Lester MD Hyposmia (Primary Dx) from Last 3 Months Allergies Active Allergy Reactions Criticality Noted Date Comments Aspirin Stomach upset,Unknown Low 12/12/2021 Penicillins Other (See comments),Rash Medium 12/12/2011 Unknown. Was told as a child Reaction: Other Reaction: RASH, , Reaction: Rash, Unknown. Was told as a child Unknown. Was told as a child Reaction: Other Reaction: RASH, , Reaction: Rash, Sulfa (Sulfonamide Antibiotics) Rash Medium 12/12/2011 Reaction: RASH, , Medications aspirin 81 mg tabletIndicati ons:heart health Take 1 tablet (81 mg total) by mouth every morning Active fluticasone propionate (FLONASE) 50 mcg/actuation nasal spray Administer 2 sprays into each nostril daily 1 Inhaler 3 9 Active simvastatin (ZOCOR) 20 mg tabletIndicati ons:hyperlipid emia Take 1 tablet (20 mg total) by mouth nightly 3 9 Active metFORMIN (GLUCOPHAGE) 500 mg tabletIndicati ons:type 2 diabetes mellitus Take 1 tablet (500 mg total) by mouth 2 (two) times a day with meals 3 9 Active escitalopram (LEXAPRO) 5 mg tabletIndicati ons:Anxiety with Depression Take 1 tablet (5 mg total) by mouth every morning 1 9 Active ACCU-CHEK MATT PLUS TEST STRP strip USE ONE TEST STRIP TID TO CHECK BLOOD SUGAR 4 9 Active cholecalcifero l (VITAMIN D-3) 25 mcg (1,000 unit) tabletIndicati ons:Vitamin D Deficiency Take 1 tablet (1,000 Units total) by mouth every morning Active cyanocobalamin (Vitamin B-12) 1,000 mcg tabletIndicati ons:Prevention of Vitamin B12 Deficiency Take 2 tablets (2,000 mcg total) by mouth every morning Active multivit-min/f olic acid/wdy249 (ALIVE PREMIUM ADULT ORAL)Indicatio ns:supplement Take 2 tablets by mouth every morning Active BD Ultra-Fine Short Pen Needle 31 gauge x 5/16 needle USE 1 NEEDLE WITH INSULIN PEN TO INJECT INSULIN DAILY 3 Active carvediloL (COREG) 12.5 mg tablet TAKE 1 TABLET BY MOUTH TWICE A DAY WITH FOOD 180 tablet 3 3 Active SEMGLEE-yfgn 100 unit/mL (3 mL) pen for injection INJECT 10 UNIT (0.1 ML) SUBCUTANEOUSLY EVERY EVENING 4 Active losartan-hydro chlorothiazide (HYZAAR) 100-25 mg per tablet TAKE 1 TABLET BY MOUTH EVERY DAY 90 tablet 1 4 Active ipratropium (ATROVENT) 21 mcg (0.03 %) nasal spray Administer 2 sprays into each nostril every 12 (twelve) hours 30 mL 11 4 Active tamoxifen (NOLVADEX) 10 mg tabletIndicati ons:prevention of breast cancer in high risk women Take 0.5 tablets (5 mg total) by mouth daily Or take one tablet every other day 45 tablet 3 5 026 Active Active Problems Problem Noted Date Diagnosed Date Prophylactic use of tamoxifen 10/16/2023 Encounter for monitoring tamoxifen therapy 10/15 History of breast cancer 09/17/2022 Hyperlipidemia 11/14/2021 Lobular carcinoma in situ (LCIS) of right breast 11/14/2021 Chronic anemia 11/10/2021 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 Diagnosis. 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 Diagnosis. 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 Transoral closure of left orocutaneous fistula ([place] 10/11/2015) Irrigation and washout of left neck wound ([place] 10/11/2015) Seasonal allergy 06/08/2014 Overview (08/31/2016): Seasonal allergy Type 2 diabetes mellitus 10/10/2013 Overview (08/29/2016): DMII WO CMP NT ST UNCNTR Depression 10/10/2013 Overview (08/29/2016): DEPRESSIVE DISORDER NEC Gastroesophageal reflux disease with esophagitis 10/10/2013 Overview (08/31/2016): REFLUX ESOPHAGITIS Hypertension 10/10/2013 Overview (08/31/2016): HYPERTENSION NOS Hypertensive retinopathy of both eyes 06/19/2012 Resolved Problems Problem Noted Date Diagnosed Date Resolved Date Intraductal carcinoma and lo bular carcinoma in situ (LCIS) of right breast 10/16/2023 5 Encounter to discuss treatment options 11/14/2021 10/16/2023 Immunizations Immunization Administration Dates Next Due Pfizer SARS-CoV-2 Monovalent Vaccination (12+ Yrs) -READY TO USE 09/13/2021 Social History Tobacco Use Types Packs/Day Years [...] on file Legal Sex Female 11:24 PM PUSHER RUNNER Gender Identity Female 12/31/2022 7:44 AM CDT Sexual Orientation Straight 12/31/2022 7: 44 AM CDT Last Filed Vital Signs Vital Sign Reading Time Taken Comments Blood Pressure 140/60 06/03/2024 8:47 AM PUSHER RUNNER Pulse 71 06/03/2024 8:47 AM PUSHER RUNNER Temperature 36.4 C (97.5 F) 06/03/2024 8:47 AM PUSHER RUNNER Respiratory Rate 18 06/03/2024 8:47 AM PUSHER RUNNER Oxygen Saturation 100% 06/03/2024 8:47 AM PUSHER RUNNER Inhaled Oxygen Concentration - - Weight 81.2 kg (179 lb) 06/03/2024 8:47 AM PUSHER RUNNER Height 170.2 cm (5' 7 ) 05/01/2024 7:44 AM PUSHER RUNNER Body Mass Index 28.04 05/01/2024 7:44 AM PUSHER RUNNER Plan of Treatment Not on file Medical Devices Implanted Type Area Printed Circuit Boards Router Device Identifier Shelf Expiration Date Model / Serial / Lot [employer] Ghiatas 20ga 20cm 7cm Beaded Needle Breast Wire Localization [id number] - [id number] Implanted:Qty: 1 on 08/29/2021 at [facility] Right: Breast [employer] [id number] / / [employer] Ghiatas 20ga 20cm 9cm Beaded Needle Breast Wire Localization [id number] - [id number] Implanted:Qty: 1 on 08/29/2021 at [facility] Right: Breast [employer] [id number] / / Procedures Procedure Name Priority Date/Time Associated Diagnosis Comments MRI BREAST BILATERAL W WO CONTRAST Schedule Routine, Read Routine (OP Routine) 05/25/2024 11:56 AM PUSHER RUNNER 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 MRI BRAIN W WO CONTRAST Schedule Routine, Read Routine (OP Routine) 05/01/2024 8:31 AM PUSHER RUNNER Anosmia DIAGNOSTIC MAMMOGRAM BILATERAL W TREVOR Schedule Routine, Read Routine (OP Routine) 09/16/2023 12:27 PM CDT Ductal carcinoma in situ (DCIS) of right breast LIPID PANEL Routine 10/15/2022 4:18 PM CDT Ductal carcinoma in situ (DCIS) of right breast Neoplasm of right breast, primary tumor staging category Tis: lobular carcinoma in situ (LCIS) Encounter to discuss treatment options Osteopenia of neck of left femur DEXA AXIAL SKELETON BONE DENSITY 1 OR MORE SITES Schedule Routine, Read Routine (OP Routine) 09/27/2022 8:33 AM CDT 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 Unchanged expected MRI appearance of the right breast following breast conserving therapy. 2. No new suspicious finding in either breast on MRI. No MRI evidence of malignancy. Given the patient's elevated estimated lifetime risk of breast cancer, both annual screening mammography and annual screening breast MRI are recommended. ASSESSMENT: BI-RADS 2 - Benign. Electronically signed by: Beto Tovar M.D. Narrative 05/25/2024 12:58 PM PUSHER RUNNER EXAMINATION: MRI BREAST BILATERAL W WO CONTRAST ORDERING HEALTHCARE PROVIDER: LINDA SNIDER HISTORY: 78-year-old postmenopausal female with elevated estimated lifetime risk of breast cancer (>= 20%). Personal history of right breast ductal carcinoma in situ (DCIS) on stereotactic biopsy in May 2021. Subsequent lumpectomy in August 2021 revealed lobular carcinoma in situ (LCIS). Status post radiation therapy. COMPARISON: MRI breast dated 05/23/2023. Mammography dated 09/16/2023 and 09/02/2022. TECHNIQUE: Multiplanar and multisequence MRI of both breasts was performed before and after the uneventful intravenous administration of 17 mL of Dotarem in a right antecubital IV catheter according to standard breast imaging protocol on a dedicated breast coil. The images were reviewed on a [employer] work station and underwent CAD analysis. FINDINGS: BACKGROUND ENHANCEMENT: Mild. FIBROGLANDULAR TISSUE: Scattered fibroglandular tissue. RIGHT BREAST: There are stable postoperative changes at the 11-12 o'clock position of the right breast, posterior depth. There are unchanged foci of susceptibility artifact in the right breast which correspond with post-surgical change(s)/biopsy marking clip(s). Right breast skin thickening is again noted and in keeping with prior radiation therapy. There are no suspicious masses. There is no suspicious non-mass enhancement. There is no abnormal skin, nipple, or pectoralis muscle enhancement. There is no right axillary or internal mammary lymphadenopathy. LEFT BREAST: There are no suspicious masses. There is no suspicious non-mass enhancement. There is no abnormal skin, nipple, or pectoralis muscle enhancement. There is no left axillary or internal mammary lymphadenopathy. The visualized portions of the mediastinum and upper abdomen are unremarkable in appearance on limited evaluation. Linda Snider MD IM MRI PROCEDURES Final Re sult * MRI Brain W WO Contrast (05/01/2024 8:31 AM PUSHER RUNNER) Anatomical Region Laterality Modality Head and Neck N/A Magnetic Resonan ce 05/01/2024 10:2 8 AM PUSHER RUNNER Impressions 05/01/2024 10:34 AM PUSHER RUNNER No acute intracranial abnormality. No mass lesion in the region of the olfactory nerves/olfactory bulb, however these are not well evaluated given the lack of dedicated anterior skull base sequences. Dictated by: Corbin Mariano M.D. The radiology attending physician has personally reviewed this study, and had reviewed and/or edited this written report and agrees with it. Electronically signed by: Joon Banks M.D, PHD Narrative 05/01/2024 10:34 AM PUSHER RUNNER EXAMINATION: Magnetic resonance imaging (MRI) of the brain and brainstem without and with contrast HISTORY: Abnormal olfaction TECHNIQUE: Multiplanar multi-weighted MRI of the brain and brainstem was performed without and with intravenous contrast using the general brain protocol. Contrast information: 16 mL Gadoterate Meglumine COMPARISON: 09/23/2015 FINDINGS: No mass is seen in the region of the olfactory bulbs, however they are not well evaluated given the lack of small [id number] sequences. Scattered white matter T2/FLAIR hyperintensities are nonspecific most commonly due to chronic small vessel ischemia. The scalp and calvarium are normal. The superior sagittal sinus demonstrates normal venous flow. The corpus callosum is normal in shape and signal intensity. The posterior fossa is unremarkable. The pituitary and sella are normal. The brainstem and craniocervical junction are unremarkable. Diffusion weighted images reveal no hyperintensities to suggest acute cerebral infarction. The susceptibility weighted sequences reveal no evidence of acute or chronic hemorrhage. The ventricles are normal in size and position without evidence of hydrocephalus. The paranasal sinuses are normal. The visualized portions of the mastoids are unremarkable. Lens replacement Normal flow voids are demonstrated in the carotid arteries and basilar artery. There is no abnormal contrast enhancement. Procedure Note Joon Banks MD PhD - 05/01/2024 EXAMINATION: Magnetic resonance imaging (MRI) of the brain and brainstem without and with contrast HISTORY: Abnormal olfaction TECHNIQUE: Multiplanar multi-weighted MRI of the brain and brainstem was performed without and with intravenous contrast using the general brain protocol. Contrast information: 16 mL Gadoterate Meglumine COMPARISON: 09/23/2015 FINDINGS: No mass is seen in the region of the olfactory bulbs, however they are not well evaluated given the lack of small [id number]-[id number] sequences. Scattered white matter T2/FLAIR hyperintensities are nonspecific most commonly due to chronic small vessel ischemia. The scalp and calvarium are normal. The superior sagittal sinus demonstrates normal venous flow. The corpus callosum is normal in shape and signal intensity. The posterior fossa is unremarkable. The pituitary and sella are normal. The brainstem and craniocervical junction are unremarkable. Diffusion weighted images reveal no hyperintensities to suggest acute cerebral infarction. The susceptibility weighted sequences reveal no evidence of acute or chronic hemorrhage. The ventricles are normal in size and position without evidence of hydrocephalus. The paranasal sinuses are normal. The visualized portions of the mastoids are unremarkable. Lens replacement Normal flow voids are demonstrated in the carotid arteries and basilar artery. There is no abnormal contrast enhancement. IMPRESSION: No acute intracranial abnormality. No mass lesion in the region of the olfactory nerves/olfactory bulb, however these are not well evaluated given the lack of dedicated anterior skull base sequences. Dictated by: Crobin Mariano M.D. The radiology attending physician has personally reviewed this study, and had reviewed and/or edited this written report and agrees with it. Electronically signed by: Joon Banks M.D, PHD us Eulalia Lester MD IMG MRI PROCEDURES Fin al Result * Diagnostic Mammogram Bilateral W Trevor (09/16/2023 12:27 PM CDT) Anatomical Region Laterality Modality Breast Bilateral Mammography 09/16/2023 1:21 PM CDT Impressions 09/16/2023 1:21 PM CDT Benign changes of RIGHT breast conservation therapy with no new suspicious mammographic abnormality in EITHER breast. OVERALL FINAL ASSESSMENT: BI-RADS Category 2: Benign. RECOMMENDATION: Annual diagnostic mammography is recommended. Electronically signed by: Yumiko Torrez M.D. Narrative 09/16/2023 1:21 PM CDT EXAMINATION: BILATERAL DIGITAL DIAGNOSTIC MAMMOGRAM INCLUDING CAD AND BILATERAL DIGITAL BREAST TOMOSYNTHESIS HISTORY: 78-year-old woman with history of RIGHT breast ductal carcinoma in situ status post breast conservation therapy in 2021, presenting for routine follow-up. No history of surgery in the LEFT breast. COMPARISON: Prior mammograms dating back to 08/17/2016, most recent from 09/12/2022. Breast MRI from 05/23/2023. TECHNIQUE: Full field digital mammographic views of BOTH breasts were performed, including computer aided detection (CAD) and BILATERAL digital breast tomosynthesis (DBT). BREAST PARENCHYMAL COMPOSITION: There are scattered areas of fibroglandular density. MAMMOGRAM FINDINGS: There are expected changes of breast conservation therapy in the RIGHT breast. There is is an area of distortion in the subareolar LEFT breast with internal fat density, which is stable as compared to prior mammograms dating back to the oldest prior available on 08/17/2016. There is no suspicious enhancement in this area on MRI from 05/23/2023. This is therefore compatible with a benign finding. No new suspicious grouped calcifications, mass, or architectural distortion suggestive of malignancy is detected in EITHER breast. Procedure Note Yumiko Torrez MD - 09/16/2023 EXAMINATION: BILATERAL DIGITAL DIAGNOSTIC MAMMOGRAM INCLUDING CAD AND BILATERAL DIGITAL BREAST TOMOSYNTHESIS HISTORY: 78-year-old woman with history of RIGHT breast ductal carcinoma in situ status post breast conservation therapy in 2021, presenting for routine follow-up. No history of surgery in the LEFT breast. COMPARISON: Prior mammograms dating back to 08/17/2016, most recent from 09/12/2022. Breast MRI from 05/23/2023. TECHNIQUE: Full field digital mammographic views of BOTH breasts were performed, including computer aided detection (CAD) and BILATERAL digital breast tomosynthesis (DBT). BREAST PARENCHYMAL COMPOSITION: There are scattered areas of fibroglandular density. MAMMOGRAM FINDINGS: There are expected changes of breast conservation therapy in the RIGHT breast. There is is an area of distortion in the subareolar LEFT breast with internal fat density, which is stable as compared to prior mammograms dating back to the oldest prior available on 08/17/2016. There is no suspicious enhancement in this area on MRI from 05/23/2023. This is therefore compatible with a benign finding. No new suspicious grouped calcifications, mass, or architectural distortion suggestive of malignancy is detected in EITHER breast. IMPRESSION: Benign changes of RIGHT breast conservation therapy with no new suspicious mammographic abnormality in EITHER breast. OVERALL FINAL ASSESSMENT: BI-RADS Category 2: Benign. RECOMMENDATION: Annual diagnostic mammography is recommended. Electronically signed by: Yumiko Torrez M.D. Melissa Jeff NP IMG MAMMO PROCEDURES Fin al Result * Lipid panel (10/15/2022 4:18 PM CDT) Cholesterol 145 30 - 199 mg/dL [facility] Comment: Interpretive Data Ages < or = 19 years Acceptable: <170 mg/dL Borderline high: 170-199 mg/dL High: >or= 200 mg/dL Ages > or = 20 years Desirable: <200 mg/dL Borderline high: 200-239 mg/dL High: >or= 240 mg/dL Literature References: 1. Expert Panel on Integrated Guidelines for Cardiovascular Health and Risk Reduction in Children and Adolescents. Pediatrics 2011;128:S213 2. NCEP Expert Panel. Circulation 2004;110:227 Current Interpretive Data was last revised on 2018. Triglycerides 71 <=149 mg/dL [facility] Comment: Interpretive Data Ages < or = 9 years Acceptable: <75 mg/dL Borderline high: 75-99 mg/dL High: >or= 100 mg/dL Ages 10 to 20 years Acceptable: <90 mg/dL Borderline high: 90-129 mg/dL High: >or= 130 mg/dL Ages > or = 20 years Desirable: <150 mg/dL Borderline high: 150-199 mg/dL High: 200-499 mg/dL Very high: >or= 499 mg/dL Literature References: 1. Expert Panel on Integrated Guidelines for Cardiovascular Health and Risk Reduction in Children and Adolescents. Pediatrics 2011;128:S213 2. NCEP Expert Panel. Circulation 2004;110:227 Current Interpretive Data was last revised on 2018. HDL 52 >=40 mg/dL [facility] Comment: Interpretive Data Ages < or = 19 years Acceptable: >45 mg/dL Borderline low: 40-45 mg/dL Low: <40 mg/dL Ages > or = 20 years Desirable: >or= 60 mg/dL Low: <40 mg/dL Literature References: 1. Expert Panel on Integrated Guidelines for Cardiovascular Health and Risk Reduction in Children and Adolescents. Pediatrics 2011;128:S213 2. NCEP Expert Panel. Circulation 2004;110:227 Current Interpretive Data was last revised on 2018. LDL, calculated 79 <=129 mg/dL [facility] Comment: Interpretive Data Ages < or = 19 years Acceptable: <110 mg/dL Borderline high: 110-129 mg/dL High: >or= 130 mg/dL Ages > or = 20 years Optimal: <100 mg/dL Near optimal: 100-129 mg/dL Borderline high: 130-159 mg/dL High: >160 mg/dL Literature References: 1. Expert Panel on Integrated Guidelines for Cardiovascular Health and Risk Reduction in Children and Adolescents. Pediatrics 2011;128:S213 2. NCEP Expert Panel. Circulation 2004;110:227 Current Interpretive Data was last revised on 2018. Non-HDL Cholesterol 93 mg/dL [facility] Comment: Interpretive Data Ages < or = 19 years Acceptable: <120 mg/dL Borderline high: 120-144 mg/dL High: >145 mg/dL Ages > or = 20 years When triglycerides are >200 mg/dL, Non-HDL cholesterol is a secondary target of therapy with treatment goals that are 30 mg/dL greater than the LDL cholesterol target. Literature References: 1. Expert Panel on Integrated Guidelines for Cardiovascular Health and Risk Reduction in Children and Adolescents. Pediatrics 2011;128:S213 2. NCEP Expert Panel. Circulation 2004;110:227 Current Interpretive Data was last revised on 2018. Chol/HDL ratio 3 [facility] Blood 10/15/2022 4:18 PM CDT 10/15/2022 4:57 PM CDT Lola Israel MD LAB BLOOD ORDERABLES Fin al Result [facility] [place] [address] * Dexa Axial Skeleton Bone Density 1 or 2 Site (09/27/2022 8:33 AM CDT) Anatomical Region Laterality Modality Body N/A Radiographic Maggie ging Narrative 10/01/2022 4:27 PM CDT Patient Name: Keerthi Lilly Date of : 1945 Date of scan: 09/27/2022 Bone mineral density was performed on a [employer] Discovery Densitometer. Based on machine cross-calibration and precision studies the least significant changes of this densitometer is 0.024 g/cm2 at the spine, 0.020 g/cm2 at the total proximal femur, and 0.014g/cm2 at the forearm. HISTORY: This is a 77 y.o. postmenopausal female with a history of breast cancer. She reports that she has never smoked. She has never used smokeless tobacco. Currently on treatment with vitamin D. INDICATIONS: Menopause status. FINDINGS: BONE MINERAL DENSITY OF THE LUMBAR SPINE Bone Mineral Density (BMD) of the lumbar spine was measured from L1-L4 and the average density was calculated to be 1.211 gm/cm2. This corresponds to a T-score (standard deviations from the mean of young adults) of 1.5. There is no previous study available for comparison. BONE MINERAL DENSITY OF THE PROXIMAL FEMUR Bone Mineral Density (BMD) of the left hip total was found to be 0.845 gm/cm2. This corresponds to a T-score standard deviations from the mean of young adults of -0.8. Femoral neck is 0.628 gm/cm2 with a T-score (standard deviations from the mean of young adults) of -2.0. There is no previous study available for comparison. BONE MINERAL DENSITY OF THE FOREARM Bone Mineral density (BMD) of the left proximal 1/3 of the radius measures 0.657 gm/cm2. This corresponds to a T-score (standard deviations from the mean of young adults) of -0.6. There is no previous study available for comparison. A forearm bone density study was performed in addition to the routine study because of forearm protocol. SUMMARY: Bone mineral density shows evidence of low bone mass at the proximal femur and moderately increased fracture risk (Osteopenia). ADDITIONAL COMMENTS: Postmenopausal Women and Men Over 50: Diagnostic criteria: Osteoporosis: BMD at or below -2.5 T-score; Osteopenia (low bone mass): BMD between -1.0 and -2.5 T-score. If the patient has a history of a fragility fracture, a fracture that occurred with trauma equivalent to a fall from a standing position or less, then the diagnosis is osteoporosis regardless of bone density. Following recommendations from the International Society of Clinical Densitometry, we use reference standards for calculating and reporting T scores for all women and men above 50, since fracture rate is the same for people with similar bone density regardless of ethnicity, and the reference is the largest available. The history and data sections of the bone mineral density scan were prepared by Franci Stack (R)(CBDT) who is accredited by the International Society of Clinical Densitometry. The overall patient assessment and scan interpretation were performed by Dottie Sorensen M.D. who is certified by the International Society of Clinical Densitometry. [id number] Lola Israel MD IMG DXA PROCEDURES Final Result * (ABNORMAL) eGFR (09/17/2022 11:55 AM CDT) eGFR 56(L) 90 - 130 mL/min/1. 73 m2 [facility] Comment: Interpretive Data Reference Interval Normal >/= 90 mL/min/1.73m2 Mildly decreased* 60 - 89 mL/min/1.73m2 Mildly to moderately decreased 45 - 59 mL/min/1.73m2 Moderately to severely decreased 30 - 44 mL/min/1.73m2 Severely decreased 15 - 29 mL/min/1.73m2 Kidney Failure < 15 mL/min/1.73m2 *Relative to young adult level Estimated glomerular filtration rate is determined by the 2020 CKD-EPI equation recommended by the National Kidney Foundation (A Unifying Approach to GFR Estimation: Recommendations of the NKF-ASK Task Force on Reassessing the Inclusion of Race in Diagnosing Kidney Disease, JASN 2020). The CKD-EPI equation should not be used for patients with unstable renal function and has not been validated in children and those over 70. Current interpretive data was last reviewed 2021. Testing performed by: [facility], [address] [place] [id number] Blood 09/17/2022 11:5 5 AM CDT 09/17/2022 11:56 AM CDT Lola Israel MD LAB BLOOD ORDERABLES Fin al Result Performing Organization Address City/State/[facility] Co de Phone Number [facility] [place] [address] * COLONOSCOPY REPORT (03/06/2017) Anatomical Region Laterality Modality Other Provider Scanning GI PROCEDURE ORDERABLES Final Result from Last 3 Months or Most Recently Relevant to Health Maintenance Insurance [address] [place] [id number] [facility] Care Teams Cold Type Composing Machine Operator Relationship Specialty Start Date End Date Manuel Salcedo DO PCP - General Family Medicine 03/07/22 Melissa Jeff MEDIA PROFESSIONAL [address] [address] Nurse Practitioner Nurse Practitioner 09/12/22 Samm Canas MD [address] [phone] Referring Physician Hematology 09/12/22 Dandre Garrido MD 4921 [facility] # LL [facility] [address] [place] [address] Radiation Oncologist Radiation Oncology 09/27/22 Franci Gilliam, PhD 49[address] [facility] # LL [address] [place] [address] Nurse Practitioner Radiation Oncology 10/23/22 Linda Snider MD [address] [facility] DIV MEDICAL ONCOLOGY, [facility]15 [place] [address] Surgeon Breast Surgery 02/05/23
--- OUTSIDE RECORDS SUMMARY | 2024-07-20 16:29 | XMS_ITS | Encounter Summary ---
Author Organization [facility] Address [address] [place] [address] Care Team Providers Care Office Support Clerk Name Role Phone Manuel Salcedo DO Primary Care Provider [phone] Encounter Details Date Type Department Care Team (Late Contact Info) Description 08/01/1999 Outpatient Historical [facility] Internal Medicine [facility] and [address] [place] [address] Hyun Romo MD 3950 [facility] [address] [place] [address] Social History Tobacco Use Types Packs/Day Years Used Date Smoking Tobacco: Never Assessed Comments Unknown Sex and Gender Information Value Date Recorded Sex Assigned at Not on file Legal Sex Female 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 [address] [place] [address] documented as of this encounter Visit Diagnoses Not on filedocumented in this encounter Care Teams Office Support Clerk Relationship Specialty Start Date End Date Manuel Salcedo DO [address] [phone] PCP - General Family Practice 01/17/23 documented as of this encounter
--- OUTSIDE RECORDS SUMMARY | 2024-07-20 16:29 | XMS_ITS | Encounter Summary ---
Author Organization [facility] Address [address] [place] [address] Phone Care Team Providers Care Hvac/R Service Technician Name Role Phone Taqueria Singleton MD Primary Care Provider [phone] Manuel Salcedo DO Primary Care Provider [phone] Melissa Jeff NP Unavailable [phone] Lola Israel MD Unavailable [phone] Samm Canas MD Unavailable [phone] Dandre Garrido MD Unavailable Franci Gilliam PhD Unavailable [phone] Linda Pichardo MD Unavailable [phone] Encounter Details Date Type Department Care Team (Late st Contact Info) Description 07/05/2021 Telephone [facility] Surgery [facility] Advanced Medicine 5th [place] [address] [place] [id number] Gabriela Ng, RN Social History Tobacco Use Types Packs/Day Years Used Date Smoking Tobacco: Never Alcohol Use Standard Drinks/Week Comments No 0 (1 standard drink = 0.6 oz pur e alcohol) Comments Unknown Sex and Gender Information Value Date Recorded Sex Assigned at Not on file Legal Sex Female 11:24 PM MANAGER CLINICAL INFORMATICS Gender Identity Female 12/31/2022 7:44 AM CDT Sexual Orientation Straight 12/31/2022 7: 44 AM CDT documented as of this encounter Plan of Treatment Not on file documented as of this encounter Visit Diagnoses Not on filedocumented in this encounter Care Teams Hvac/R Service Technician Relationship Specialty Start Date End Date Taqueria Singleton MD [address] [place] [address] PCP - General 03/06/17 03/06/22 Manuel Salcedo DO [address] [place] [address] PCP - General Family Medicine 03/07/22 Melissa Jeff NP [address] [address] Nurse Practitioner Nurse Practitioner 09/12/22 Lola Israel MD [address] [address] Surgeon Surgical Oncology 09/12/22 02/04/23 Samm Canas MD [facility] [facility] [address] [phone] Referring Physician Hematology 09/12/22 Dandre Garrido MD [address] [facility] [address] LL LL [address] [place] [address] Radiation Oncologist Radiation Oncology 09/27/22 Franci Gilliam, PhD [address] [place] [address] Nurse Practitioner Radiation Oncology 10/23/22 Linda Pichardo MD 52[address] [facility] DIV IM MEDICAL ONCOLOGY, [address] [place] [address] Surgeon Breast Surgery 02/05/23 documented as of this encounter
--- OUTSIDE RECORDS SUMMARY | 2024-07-20 16:29 | XMS_ITS | Encounter Summary ---
Author Organization [facility] Address [address] [place] [address] Care Team Providers Care Recep Name Role Phone Manuel Salcedo DO Primary Care Provider [phone] Encounter Details Date Type Department Care Team (Late st Contact Info) Description 09/25/1999 Outpatient Historical [facility] Internal Medicine [facility] and [address] [place] [address] Jaelyn Mayo MD [address] [facility] [address] [place] [address] Social History Tobacco Use Types Packs/Day Years Used Date Smoking Tobacco: Never Assessed Comments Unknown Sex and Gender Information Value Date Recorded Sex Assigned at Not on file Legal 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 Female 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 PROFESSOR OF RELIGION Gender Identity Not on file Sexual Orientation Not on file documented as of this encounter Plan of Treatment Upcoming Encounters Date Type Department Care Team (Late st Contact Info) Description 07/27/2024 11:45 AM PROFESSOR OF RELIGION Office Visit [facility] Oncology and Hematology - [place] [address] [place] [address] [place] [address] Samm Canas MD 2[address] [facility] [address] [place] [address] documented as of this encounter Visit Diagnoses Not on filedocumented in this encounter Care Teams Recep Relationship Specialty Start Date End Date Manuel Salcedo DO [address] [phone] PCP - General Family Practice 01/17/23 documented as of this encounter
--- OUTSIDE RECORDS SUMMARY | 2024-07-20 16:29 | XMS_ITS | Encounter Summary ---
Author Organization [facility] Address [address] [place] [address] Care Team Providers Care Die Maintenance Name Role Phone Manuel Salcedo DO Primary Care Provider [phone] Encounter Details Date Type Department Care Team (Late st Contact Info) Description 09/05/1999 Outpatient Historical [facility] Internal Medicine [facility] and [address] [place] [address] Jaelyn Mayo MD [address] [facility] [address] [place] [address] Social History Tobacco Use Types Packs/Day Years Used Date Smoking Tobacco: Never Assessed Comments Unknown Sex and Gender Information Value Date Recorded Sex Assigned at Not on file Legal Sex Female 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 Gender Identity Not on file Sexual Orientation Not on file documented as of this encounter Plan of Treatment Upcoming Encounters Date Type Department Care Team (Late st Contact Info) Description 07/27/2024 11:45 AM 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 Office Visit [facility] Oncology and Hematology - [place] [address] [facility] [address] [place] [address] Samm Canas MD 2[address] [facility] [address] [place] [address] documented as of this encounter Visit Diagnoses Not on filedocumented in this encounter Care Teams Die Maintenance Relationship Specialty Start Date End Date Manuel Salcedo DO [address] [phone] PCP - General Family Practice 01/17/23 documented as of this encounter
--- OUTSIDE RECORDS SUMMARY | 2024-07-20 16:29 | XMS_ITS ---
Author Organization [facility] Address [address] [place] [address] Care Team Providers Care Medical Laboratory Technologist Name Role Phone Shelbylucian Manuel NAYAK Primary Care Provider [phone] Melissa Jeff NP Unavailable Samm Canas MD Unavailable [phone] Dandre Garrido MD Unavailable Franci Gilliam PhD Unavailable [phone] Linda Pichardo MD Unavailable [phone] Active Problems Problem Noted Date Diagnosed Date Prophylactic use of tamoxifen 10/16/2023 Encounter for monitoring tamoxifen therapy 10/15 History of breast cancer 09/17/2022 Hyperlipidemia 11/14/2021 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 Diagnosis. 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 Diagnosis. 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 Transoral closure of left orocutaneous fistula ([place] 10/11/2015) Irrigation and washout of left neck wound ([place] 10/11/2015) Seasonal allergy 06/08/2014 Overview (08/31/2016): Seasonal allergy Type 2 diabetes mellitus 10/10/2013 Overview (08/29/2016): DMII WO CMP NT ST UNCNTR Depression 10/10/2013 Overview (08/29/2016): DEPRESSIVE DISORDER NEC Gastroesophageal reflux disease with esophagitis 10/10/2013 Overview (08/31/2016): REFLUX ESOPHAGITIS Hypertension 10/10/2013 Overview (08/31/2016): HYPERTENSION NOS Hypertensive retinopathy of both eyes 06/19/2012 Current Treatment and Therapy Plans No current plan information found. Past Treatment and Therapy Plans Oncology Supportive Care Plan Name Start Date Discontinue Date Treatment Medications Discontinue Reason Plan Provider [id number] [facility] - SURGERY - CE/BZA / [place] 08/03/2021 08/06/2023 [facility] conj estrogens 0.45 MG-bazedoxifene 20 MG/placebo (2016-10-188/NU 15B06) Automatic discontinuation of dormant plans AftBeverley MD PhD Radiation Treatments * Course C1 R BREAST 202210/10/2022 - 10/16/2022 Treatment Period Energy Fraction Dose Fractions Total Dose Plans Planned R BREAST 10/10/2022 - 10/16/2022 520 5 / 2,600 Reference Points Delivered [place] dpv 10/10/2022 - 10/16/2022 2,600 Resolved Problems Problem Noted Date Diagnosed Date Resolved Date Intraductal carcinoma and lo bular carcinoma in situ (LCIS) of right breast 10/16/2023 5 Encounter to discuss treatment options 11/14/2021 10/16/2023
--- OUTSIDE RECORDS SUMMARY | 2024-07-20 16:29 | XMS_ITS | Clinical Summary ---
Author Organization [facility] Address [address] [place] [address] Care Team Providers Care Plaster Machine Tender Name Role Phone Manuel Salcedo Primary Care Provider [phone] Melissa Jeff NP Unavailable [phone] Samm Canas MD Unavailable [phone] Dandre Garrido MD Unavailable Franci Gilliam PhD Unavailable [phone] Linda Snider MD Unavailable [phone] Allergies Active Allergy Reactions Criticality Noted Date [...] by mouth every morning Active multivit-min/f olic acid/acr601 (ALIVE PREMIUM ADULT ORAL)Indicatio ns:supplement Take 2 [...] (07/25/2021): Added automatically from request for surgery [id number] 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 Diagnosis. 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 Diagnosis. 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 Transoral closure of left orocutaneous fistula ([place] 10/11/2015) Irrigation and washout of left neck wound ([place] 10/11/2015) Seasonal allergy 06/08/2014 Overview (08/31/2016): Seasonal [...] in situ (LCIS) of right breast 10/16/2023 Encounter to discuss treatment options 11/14/2021 10/16/2023 Encounters Date Type Department Care Team Description 06/03/2024 9:00 AM CARD MOUNTER Office Visit [facility] Oncology [address] [facility] [address] [place] [address] MarinoLinda mccoy MD Ductal carcinoma in situ (DCIS) of right breast (Primary Dx); Lobular carcinoma in situ (LCIS) of right breast; Encounter for monitoring tamoxifen therapy; Prophylactic use of tamoxifen; 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 05/25/2024 11:00 AM CARD MOUNTER - 05/25/2024 11:59 PM CARD MOUNTER Hospital Encounter [facility] [address] [place] [address] Ductal carcinoma in situ (DCIS) of right breast; Lobular carcinoma in situ (LCIS) of right breast; 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 Discharge Disposition: Discharge to home or self care 05/01/2024 9:00 AM CARD MOUNTER [facility] - [facility] [address] [facility] 11th [place] [address] [place] [address] Eulalia Lester MD Hyposmia (Primary Dx) 05/01/2024 7:27 AM CARD MOUNTER - 05/01/2024 11:59 PM CARD MOUNTER Hospital Encounter [facility] [place] [facility] ([facility]) [address] [place] [address] Anosmia Discharge Disposition: Discharge to home or self care from Last 3 Months Immunizations Immunization Administration Dates Next Due Pfizer SARS-CoV-2 Monovalent Vaccination (12+ Yrs) -READY TO USE 09/13/2021 Surgical History Surgery Date Site/Laterality Comments CHOLECYSTECTOMY 05/27/1977 - 05/26/1978 Cholecystectomy OTHER SURGICAL HISTORY 1991; 2010; 2014 Breast nodule: fine needle aspiration; multiple ROTATOR CUFF REPAIR 05/27/1999 - 05/26/2000 Right Rotator cuff tear (right): arthroscopy NEUROMA SURGERY 05/27/1993 - 05/26/1994 neuroma, right BUNIONECTOMY 05/27/1993 - 05/26/1994 Right bunion, right VITRECTOMY 05/27/1998 - 05/26/1999 Left bleeding: vitrectomy, left HYSTERECTOMY 05/27/2006 - 05/26/2007 Fibroids: Hysterectomy, total abdominal, BSO HYSTEROSCOPY 05/27/2006 - 05/26/2007 MENISCUS SURGERY 05/27/2006 - 05/26/2007 Right BASAL CELL CARCINOMA EXCISION 05/27/2015 - 05/26/2016 toungue TONSILLECTOMY 05/27/1953 - 05/26/1954 CARDIAC CATHETERIZATION 1974; 1979; 1997 x5 CATARACT EXTRACTION 05/27/1998 - 05/26/1999 Left CATARACT EXTRACTION 05/27/1999 - 05/26/2000 Right BREAST SURGERY Squamos Cell Carcinoma of Tongue COLONOSCOPY 2020 Medical History Medical History Date Comments Rotator cuff tear, right Fibroids HL (hearing loss) Tinnitus Hypertension Type 2 diabetes mellitus (HCC) Anemia 2000 Cancer (CMS/HCC) (HCC) 2015 and 2021 different t ypes/ 2 surgeries Menstrual problem [id number] Dizziness December 21, 2022 History of transfusion 1977 Family History Medical History Relation Name Comments Diabetes Brother 1 Terry Lilly Hypertension Brother 1 Terry Lilly Hypertension ; Diabetes Brother 2 Wilfredo Lilly Hypertension Brother 2 Wilfredoarabella Lilly Diabetes Father Luis Armando Joseph Family history of diabetes mellitus - (Added by TW Conv) Diabetes type II Father Luis Armando Joseph Diabetes - Type II; Heart disease Father Luis Armando Joseph Family histor y of cardiac disorder - (Added by TW Conv) Heart failure Father Luis Armando Joseph Congestive he art failure; Hypertension Father Luis Armando Joseph Hypertension; /Family history of hypertension - (Added by TW Conv) Anemia Mother Lola Lilly Diabetes Mother Lola Lilly Family hist ory of diabetes mellitus - (Added by TW Conv) Diabetes type II Mother Lola Lilly Diabete s -Type II; Heart disease Mother Lola Lilly Family his tory of cardiac disorder - (Added by TW Conv) Heart failure Mother Lola Lilly Congestive heart failure; Hypertension Mother Lola Lilly Hypertensio n; /Family history of hypertension - (Added by TW Conv) Diabetes Other 1 Family history of Diabetes; Hypertension Other 2 Family history of Hypertension; Depression Sister 1 Lise Storey Diabetes Sister 1 Lise Storey Hearing loss Sister 1 Lise Storey Heart failure Sister 1 Lise Stoery Hypertension Sister 1 Lise Storey Kidney disease Sister 1 Lise Storey Memory loss Sister 1 Lise Storey Stroke Sister 1 Lise Storey Stroke; Heart failure Sister 2 Congestive hea rt failure; Anesthesia problems Neg Hx Relation Name Status Comments Brother 1 Terry Lilly Brother 2 Wilfredo Lilly Father Luis Armando Joseph Mother Lola Lilly Other 1 Other 2 Sister 1 Lise Storey Sister 2 Social History Tobacco Use Types Packs/Day Years [...] on file Legal Sex Female 11:24 PM CARD MOUNTER Gender Identity Female 12/31/2022 7:44 AM CDT Sexual Orientation Straight 12/31/2022 7: 44 AM CDT Obstetrics History Para Term AB IAB SAB Ectopic Multiple Livin g Live Births 0 0 Last Filed Vital Signs Vital Sign Reading Time Taken Comments Blood Pressure 140/60 06/03/2024 8:47 AM CARD MOUNTER Pulse 71 06/03/2024 8:47 AM CARD MOUNTER Temperature 36.4 C (97.5 F) 06/03/2024 8:47 AM CARD MOUNTER Respiratory Rate 18 06/03/2024 8:47 AM CARD MOUNTER Oxygen Saturation 100% 06/03/2024 8:47 AM CARD MOUNTER Inhaled Oxygen Concentration - - Weight 81.2 kg (179 lb) 06/03/2024 8:47 AM CARD MOUNTER Height 170.2 cm (5' 7 ) 05/01/2024 7:44 AM CARD MOUNTER Body Mass Index 28.04 05/01/2024 7:44 AM CARD MOUNTER Plan of Treatment Health Maintenance Due Date Last Done Comments Albumin Creatinine Ratio, Urine 1945 Depression Screening 1945 Hemoglobin A1C 1945 Hepatitis C Screening 1945 Dilated Eye Exam 1945 Foot Exam 1945 Pneumococcal vaccine 65+ (1 of 2 - PCV) 1965 DTaP/Tdap/Td Vaccine (1 - Tdap) 01/30/2006 6 Well Visit 65+ 2011 eGFR 09/18/2023 09/17/2022 Fall Risk Assessment 09/28/2023 09/27/2022, 08/30/19 22 Lipid Panel 10/16/2023 10/15/2022, 02/24, 08/24/2020, Additional history exists Covid-19 Vaccine (5 - 2023-2 5 season) 2024 09/13/2021, 02/22/2021, 07/15/2020, Additional history exists Influenza Vaccine (#1) 2024 , 02/02/2020, 03/05/2018, Additional history exists Osteoporosis Screening-Bone Density Scan 09/27/2024 09/27/2022, 09/27/2022, 06/23/2012, Additional history exists Hepatitis B Screening Completed 07/25/2001 , 02/26/2001, 01/24/2001 Colon Cancer Screening-CT Colonography Discontinued 03/06/2017 Colon Cancer Screening-Colonoscopy Discontinued 03/06/2017 Colon Cancer Screening-DNA Stool Discontinued 03/06/20 Colon Cancer Screening-FIT Discontinued 03/06/2017 Colon Cancer Screening-FOBT Discontinued 03/06/2017 Colon Cancer Screening-Sigmoidoscopy Discontinued 03/06/2017 Colorectal Cancer Screening Discontinued Zoster Vaccine Completed 05/13/2020, 12/2019, 09/13/2014 Breast Cancer Screening-Mammogram Discontinued 09/16/2023, 09/12/2022, 06/04/2012 Medical Devices Implanted Type Area Resident Care Spec Device Identifier Shelf Expiration Date Model / Serial / Lot Bard Peripheral Vascular Ghiatas 20ga 20cm 7cm Beaded Needle Breast Wire Localization [id number] - [id number] Implanted:Qty: 1 on 08/29/2021 at [facility] Right: Breast [employer] [id number] / / [employer]ipheral [employer] Ghiatas 20ga 20cm 9cm Beaded Needle Breast Wire Localization [id number] - [id number] Implanted:Qty: 1 on 08/29/2021 at [facility] Right: Breast [employer] [id number] / / Procedures Procedure Name Priority Date/Time Associated Diagnosis Comments MRI BREAST BILATERAL W WO CONTRAST Schedule Routine, Read Routine (OP Routine) 05/25/2024 11:56 AM CARD MOUNTER 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 Unchanged expected MRI appearance of the [...] Beto Tovar M.D. Narrative 05/25/2024 12:58 PM CARD MOUNTER EXAMINATION: MRI BREAST BILATERAL W WO CONTRAST [...] coil. The images were reviewed on a [employer] work station and underwent CAD analysis. FINDINGS: [...] are unremarkable in appearance on limited evaluation. us Linda Snider MD IM MRI PROCEDURES Final Re sult * MRI Brain W WO Contrast (05/01/2024 8:31 AM CARD MOUNTER) Anatomical Region Laterality Modality Head and Neck N/A Magnetic Resonan ce 05/01/2024 10:2 8 AM CARD MOUNTER Impressions 05/01/2024 10:34 AM CARD MOUNTER No acute intracranial abnormality. No mass lesion [...] Banks M.D, PHD Narrative 05/01/2024 10:34 AM CARD MOUNTER EXAMINATION: Magnetic resonance imaging (MRI) of the [...] well evaluated given the lack of small hokvd-if-dfhu sequences. Scattered white matter T2/FLAIR hyperintensities are [...] well evaluated given the lack of small wdvkw-am-mobv sequences. Scattered white matter T2/FLAIR hyperintensities are [...] Electronically signed by: Joon Banks M.D, PHD Eulalia Lester MD IMG MRI PROCEDURES Fin [...] recommended. Electronically signed by: Yumiko Torrez M.D. Melissamariana Jeff POTATO SPOTTER IMG MAMMO PROCEDURES Fin al Result * Lipid panel (10/15/2022 4:18 PM CDT) Cholesterol 145 30 - 199 mg/dL [facility] Comment: Interpretive Data Ages < [...] revised on 2018. Triglycerides 71 <=149 mg/dL [facility] Comment: Interpretive Data Ages < [...] revised on 2018. HDL 52 >=40 mg/dL [facility] Comment: Interpretive Data Ages < [...] on 2018. LDL, calculated 79 <=129 mg/dL [facility] Comment: Interpretive Data Ages < [...] revised on 2018. Non-HDL Cholesterol 93 mg/dL [facility] Comment: Interpretive Data Ages < or [...] last revised on 2018. Chol/HDL ratio 3 [facility] Blood 10/15/2022 4:18 PM CDT 10/15/2022 4:57 PM CDT us Lola Israel MD LAB BLOOD ORDERABLES Fin al Result [facility] Department of [place] [address] * Dexa Axial Skeleton Bone Density 1 or 2 Site (09/27/2022 8:33 AM CDT) Anatomical Region Laterality Modality Body N/A Radiographic Maggie ging Narrative 10/01/2022 4:27 PM CDT Patient Name: Keerthi Lilly Date of : 1945 Date of scan: 09/27/2022 Bone mineral density was performed on a HoloParatek Discovery Densitometer. Based on machine cross-calibration and [...] by the International Society of Clinical Densitometry. [id number] Lola Israel MD IMG DXA PROCEDURES Final Result * (ABNORMAL) eGFR (09/17/2022 11:55 AM CDT) eGFR 56(L) 90 - 130 mL/min/1. 73 m2 [facility] Comment: Interpretive Data Reference Interval Normal [...] was last reviewed 2021. Testing performed by: [facility], [address] [place] [id number] Blood 09/17/2022 11:5 5 AM CDT 09/17/2022 11:56 AM CDT Lola Israel MD LAB BLOOD ORDERABLES Fin al Result [facility] Department [place] [address] * COLONOSCOPY REPORT (03/06/2017) Anatomical Region Laterality Modality Other us Provider Scanning GI PROCEDURE ORDERABLES Final Result from Last 3 Months or Most Recently Relevant to Health Maintenance Insurance [facility] Care Teams Plaster Machine Tender Relationship Specialty Start Date End Date Manuel Salcedo DO PCP - General Family Medicine 03/07/22 Melissa Jeff NP [address] [address] Nurse Practitioner Nurse Practitioner 09/12/22 Samm Canas MD [address] [facility] [address] [place] [id number] Referring Physician Hematology 09/12/22 Dandre Garrido MD [address] [facility] [address] [place] [address] Radiation Oncologist Radiation Oncology 09/27/22 Franci Gilliam, PhD [address] [facility] [address] [place] [address] Nurse Practitioner Radiation Oncology 10/23/22 Linda Snider MD [address] [facility] MEDICAL [facility], [facility] [address] [place] [address] Surgeon Breast Surgery 02/05/23
--- OUTSIDE RECORDS SUMMARY | 2024-07-20 16:29 | XMS_ITS | Continuity of Care Document ---
Author Organization [facility] Address [address] [facility] [address] [place] [address] Phone Care Team Providers Care Director Medical Name Role Phone Girma PT,MPT,ATC, Marek Unavailable Unavai lable Procedures Procedure Date Therapeutic Activities Therapeutic Activities Therapeutic Exercise Therapeutic Activities Therapeutic Activities Therapeutic Exercise Therapeutic Activities Therapeutic Exercise Therapeutic Activities Therapeutic Exercise Therapeutic Activities Therapeutic Exercise Doc neg elder mal no plan PRES/ABSN URINE INCON ASSESS PT Evaluation Moderate Complexity Therapeutic Activities Advance Directives Directive Yes / No Effective Date File Name No Information Encounters Encounter Description Practice Location Reason(s) For Visit Diagnoses Date Provider Providers Copied on Encounter [facility] [address], [place], [place], [id number], tel:[phone] [place] No Information 4 HILDA [place], [place]. [facility] [facility] [address], [place], [place], [id number], tel:[phone] [place] No Information 4 HILDA [place], [place]. Referring Provider: Manuel Salcedo, [address] [facility], [place], [address]. tel:[phone] [place] [address], [address] [facility] [address], [place], [place], [id number], [place] tel:[phone] [place] No Information Oct-1 - 4 Rayo Marek. , [place], [place]. Referring Provider: Manuel Salcedo, [address] [place] [address], [address]. tel:[phone] [facility] [address] [facility], [place], [place], [id number], [place] tel:[phone] [place] No Information Angel-1 0- 4 Rayo Marek. , [place], [place]. Referring Provider: Manuel Salcedo, [address] [place] [address], [address]. tel:[phone] [place] [address] [address] [facility], [place], [place], [id number], [place] tel:[phone] [place] No Information Angel-0 - 4 Rayo Marek. , [place], [place]. Referring Provider: Maunel Salcedo, [address] [place] [address], [address]. tel:[phone] [place] [address] [address] [address], [place], [place], [id number], [place] tel:[phone] [place] No Information Oct-0 4 Rayo Marek. , [place], [place]. Referring Provider: Manuel Salcedo, [address] [place] [address], [address]. tel:[phone] [place] [address] [address] [address], [place], [place], [id number], [place] tel:[phone] [place] No Information September- 4 Rayo Marek. , [place], [place]. Referring Provider: Manuel Salcedo [address] [place] [address], [address]. tel:[phone] [place] [address] [address] [facility], [place], [place], [id number], [place] tel:[phone] [place] No Information September-2 4 Rayo Marek. , [place], [place]. Referring Provider: Manuel Salcedo [address] [facility], [place], [address]. tel:[phone] [facility] [place], [address] [facility] [address], [place], [place], [id number], tel:[phone] [place] No Information 4 [place], [place], [place]. Referring Provider: Manuel Salcedo, [address] [facility], [place], [address]. tel:[phone] Family History Family Member Type Diagnosis Age At Onset No Information Payers Payer name Insurance type Covered constitution party ID Authorchona tipastor(s) [employer] CI [id number] Social History Type Description Quantity Date Captured Comments Sex Female Smoking Status No Information Chief Complaint And Reason For Visit No Information Reason For Referral Reason For Referral No Information History Of Present Illness Encounter Date Complaint History Of Prese nt Illness No Information Functional Status Date Functional Assessmen t No Information Instructions Date Instruction Additional Infor mation No Information Assessments Type Assessment Date No Information Patient Care Teams Name Effective Dates (start - stop) Status Members No Information
--- OUTSIDE RECORDS SUMMARY | 2024-07-20 16:29 | XMS_ITS | Encounter Summary ---
Author Organization [facility] Healthcare Address [address] [place] [address] Care Team Providers Care Parts Order And Stock Clerk Name Role Phone Taqueria Singleton MD Primary Care Provider [phone] Reason for Visit * Diagnostic Imaging (Routine) - Closed Specialty Diagnoses / Procedures Referred By Contac t Referred To Contact Procedures Breast Imaging Screening Outside Reference Aft, Beverley Leung MD PhD [address] [place] [address] Phone: tel: fax: Referral ID Status Reason Start Date Expiration Date Visits Re quested Visits Authorized [id number] Closed 07/17/2021 08/16/2022 1 1 Encounter Details Date Type Department Care Team (Late st Contact Info) Description 11/11/2018 Hospital Encounter [facility] [address] [place] [address] Social History Tobacco Use Types Packs/Day Years [...] on file Legal Sex Female 11:24 PM CRYPTANALYST Gender Identity Female 12/31/2022 7:44 AM CDT [...] CDT) Impressions [facility] - 07/17/2021 3:31 PM CRYPTANALYST These images are for Reference purposes only and have not been reviewed by [facility]. There will be no report generated by a [facility] Radiologist. Narrative [facility] - 07/17/2021 3:31 PM CRYPTANALYST EXAMINATION: Images For Reference Purposes Only us Beverley Riley MD PhD IMG MAMMO PROCEDURES Final Result [facility] documented in this encounter Visit Diagnoses Not on filedocumented in this encounter Care Teams Parts Order And Stock Clerk Relationship Specialty Start Date End Date Taqueria Singleton MD [address] [place] [address] PCP - General 03/06/17 03/06/22 documented as of this encounter
--- OUTSIDE RECORDS SUMMARY | 2024-07-20 16:29 | XMS_ITS | Encounter Summary ---
Author Organization [facility] Healthcare Address [address] [place] [address] Care Team Providers Care Sawyer Cork Slabs Name Role Phone Taqueria Singleton MD Primary Care Provider [phone] Reason for Visit * Diagnostic Imaging (Routine) - Closed Specialty Diagnoses / Procedures Referred By Contac t Referred To Contact Procedures Breast Imaging Screening Outside Reference Aft, Beverley Leung MD PhD [address] [place] [address] Phone: tel: fax: Referral ID Status Reason Start Date Expiration Date Visits Re quested Visits Authorized [id number] Closed 07/17/2021 08/16/2022 1 1 Encounter Details Date Type Department Care Team (Late st Contact Info) Description 05/03/2020 Hospital Encounter [facility] [address] [place], [place] [id number] Social History Tobacco Use Types Packs/Day Years [...] on file Legal Sex Female 11:24 PM TERRAZZO TILE SETTER Gender Identity Female 12/31/2022 7:44 AM CDT Sexual Orientation Straight 12/31/2022 7: 44 AM CDT documented as of this encounter Functional Status documented as of this encounter Plan of Treatment Not on file documented as of this encounter Procedures Procedure Name Priority Date/Time Associated Diagnosis Comments BREAST IMAGING MG SCREENING OUTSIDE REFERENCE Routine 05/03/2020 12:00 AM TERRAZZO TILE SETTER documented in this encounter Results * Breast Imaging Screening Outside Reference (05/03/2020 12:00 AM TERRAZZO TILE SETTER) Impressions [facility] - 07/17/2021 3:31 PM TERRAZZO TILE SETTER These images are for Reference purposes only and have not been reviewed by [facility]. There will be no report generated by a [facility] Radiologist. Narrative [facility] - 07/17/2021 3:31 PM TERRAZZO TILE SETTER EXAMINATION: Images For Reference Purposes Only us Beverley Riley MD PhD IMG MAMMO PROCEDURES Final Result [facility] documented in this encounter Visit Diagnoses Not on filedocumented in this encounter Care Teams Sawyer Cork Slabs Relationship Specialty Start Date End Date Taqueria Singleton MD [address] [place] [address] PCP - General 03/06/17 03/06/22 documented as of this encounter
--- OUTSIDE RECORDS SUMMARY | 2024-07-20 16:29 | XMS_ITS | Encounter Summary ---
Author Organization [facility] Address [address] [place] [address] Care Team Providers Care Account Strategist Name Role Phone Manuel Salcedo DO Primary Care Provider [phone] Encounter Details Date Type Department Care Team (Late Contact Info) Description 06/06/[address] [facility] Internal Medicine [facility] and [address] [place] [address] Hyun Romo MD [address] [facility] [address] [place] [address] Social History Tobacco Use Types Packs/Day Years Used Date Smoking Tobacco: Never Assessed Comments Unknown Sex and Gender Information Value Date Recorded Sex Assigned at Not on file Legal Sex Female 4:40 AM COOK STATION Gender Identity Not on file Sexual Orientation Not on file documented as of this encounter Plan of Treatment Upcoming Encounters Date Type Department Care Team (Late st Contact Info) Description 07/27/2024 11:45 AM COOK STATION Office Visit [facility] Oncology and Hematology - [place] [address] [facility] [address] [place] [address] Samm Canas MD [address] [facility] [address] [place] [address] documented as of this encounter Visit Diagnoses Not on filedocumented in this encounter Care Teams Account Strategist Relationship Specialty Start Date End Date Manuel Salcedo DO [address] [phone] PCP - General Family Practice 01/17/23 documented as of this encounter
[2024-07-20 16:37] LABS: Folic Acid > 20.0 ng/mL (2.76->20)
== END 2024-07-20 14:09 | disposition home or self-care (01) ==
LOC: ANHLAB 14:09
PROVIDERS: PCP Family Medicine; Visit Provider Internal Medicine Hematology & Oncology
DX: D64.9 Anemia, unspecified (principal)
CPT/HCPCS: 36415; 80048; 82607; 82728; 82746; 83540; 83550; 85025

== ENCOUNTER 2024-12-02 09:45 | Outpatient (CLI) | payer OTHER, SELFPAY ==
--- OUTSIDE RECORDS SUMMARY | 2024-12-02 09:49 | XMS_ITS | Encounter Summary ---
Author Organization [facility] Address [address] [place] [address] Care Team Providers Care Paper Goods Machine Operator Name Role Phone Susan Montemayor MD Primary Care Provider [phone]- [phone] Encounter Details Date Type Department Care Team ([facility] Contact Info) Description 07/03/1999 Outpatient [facility] and [address] [address] Hyun Romo MD [address] [facility] [address] [place] [address] Social History Tobacco Use Types Packs/Day Years Used Date Smoking Tobacco: Never Assessed Comments Unknown Sex and Gender Information Value Date Recorded Sex Assigned at Not on file Legal Sex Female 4:40 AM JOURNEYMAN MOLDER Gender Identity Not on file Sexual Orientation Not on file documented as of this encounter Plan of Treatment Upcoming Encounters Date Type Department Care Team (Late Contact Info) Description 04/26/2025 10:00 AM JOURNEYMAN MOLDER [facility] Oncology and Hematology - [place] [address] [facility] [address] [place] [address] Samm Canas MD [address] [facility] [address] [place] [address] documented as of this encounter Visit Diagnoses Not on filedocumented in this encounter Care Teams Paper Goods Machine Operator Relationship Specialty Start Date End Date Susan Montemayor MD [facility] [facility] [address] [place] [address] PCP - General Family Practice 07/27/24 documented as of this encounter
--- OUTSIDE RECORDS SUMMARY | 2024-12-02 09:49 | XMS_ITS | Encounter Summary ---
Author Organization [facility] Address [address] [place] [address] Care Team Providers Care Installation Supervisor Name Role Phone Susan Montemayor MD Primary Care Provider [phone]- [phone] Encounter Details Date Type Department Care Team ([facility] Contact Info) Description 08/15/1999 Outpatient Historical [facility] and [address] [address] Hyun Romo MD [address] [facility] [address] [place] [address] Social History Tobacco Use Types Packs/Day Years Used Date Smoking Tobacco: Never Assessed Comments Unknown Sex and Gender Information Value Date Recorded Sex Assigned at Not on file Legal Sex Female 4:40 AM TRAIN STATION AGENT Gender Identity Not on file Sexual Orientation Not on file documented as of this encounter Plan of Treatment Upcoming Encounters Date Type Department Care Team (Late Contact Info) Description 04/26/2025 10:00 AM TRAIN STATION AGENT Office Visit [facility] Oncology and Hematology - [place] [address] [facility] 200 [place] [address] Samm Canas MD [address] [facility] [address] [place] [address] documented as of this encounter Visit Diagnoses Not on filedocumented in this encounter Care Teams Installation Supervisor Relationship Specialty Start Date End Date Susan Montemayor MD [facility] [facility] [address] [place] [address] PCP - General Family Practice 07/27/24 documented as of this encounter
--- OUTSIDE RECORDS SUMMARY | 2024-12-02 09:49 | XMS_ITS | Encounter Summary ---
Author Organization [facility] Address [address] [place] [address] Care Team Providers Care Medical Assisting Instructor Name Role Phone Susan Montemayor MD Primary Care Provider [phone]- [phone] Encounter Details Date Type Department Care Team (Late Contact Info) Description 09/26/1999 Outpatient Historical [facility] Internal Medicine [facility] and [address] [place] [address] Jaelyn Mayo MD [address] [facility] [address] [place] [address] Social History Tobacco Use Types Packs/Day Years Used Date Smoking Tobacco: Never Assessed Comments Unknown Sex and Gender Information Value Date Recorded Sex Assigned at Not on file Legal Sex Female 4:40 AM PRIMER CHARGER Gender Identity Not on file Sexual Orientation Not on file documented as of this encounter Plan of Treatment Upcoming Encounters Date Type Department Care Team (Late st Contact Info) Description 04/26/2025 10:00 AM PRIMER CHARGER Office Visit [facility] Oncology and Hematology - [place] [address] [facility] 200 [place] [address] Samm Canas MD [address] [facility] [address] [place] [address] documented as of this encounter Visit Diagnoses Not on filedocumented in this encounter Care Teams Medical Assisting Instructor Relationship Specialty Start Date End Date Susan Montemayor MD [address] [facility] [address] [place] [address] PCP - General Family Practice 07/27/24 documented as of this encounter
--- OUTSIDE RECORDS SUMMARY | 2024-12-02 09:49 | XMS_ITS | Encounter Summary ---
Author Organization [facility] Address [address] [place] [address] Care Team Providers Care Kettle Operator Head Name Role Phone Taqueria Singleton MD Primary Care Provider + [phone] Manule Salcedo DO Primary Care Provider [phone] Encounter Details Date Type Department Care Team (Late st Contact Info) Description 12/01/2021 Lab Requisition [facility] [address] [place] [address] Yajaira Rao MD [facility] [address] [address] Iron deficiency anemia secondary to blood loss (chronic) Social History Tobacco Use Types Packs/Day Years Used Date Smoking Tobacco: Never Assessed Comments Unknown Sex and Gender Information Value Date Recorded Sex Assigned at Not on file Legal Sex Female 6:08 AM LOW PRESSURE KETTLE OPERATOR Gender Identity Not on file Sexual Orientation [...] AM CDT) Case Report Flow Cytometry Case: [id number] Authorizing Provider: Yajaira Rao MD Collected: 12/01/2021 08:35 AM Ordering Location: [facility] Received: 12/01/2021 03:48 PM Pathologist: Bhavik Avilez MD Specimen: Bone Marrow 12/04/2021 9:[address] [facility] Final Diagnosis Bone marrow, flow cytometry: - No clonal B-cell or increased blast population identified 12/04/2021 9:[address] [facility] at [address] [facility] Flow Cytometry Interpretation The bone marrow specimen [...] the flow cytometry specimen is reviewed for chief vendor quality purposes. 12/04/2021 9:[address] [facility] Flow Cytometry Results Differential Result Comment Flow Cell Count /uL 18,600 Total Viability % 96.8 Lymphocytes % 30 Dim CD45 Region % 11 Monocytes % 18 Granulocytes % 40 12/04/2021 9:[address] [facility] Reason for test Iron deficiency anemia secondary to blood loss (chronic) 280.0 12/04/2021 9:[address] [facility] Client Specimen ID # [id number] 12/04/2021 9:[address] [facility] Number of markers 10 were performed. A-2 Flow CD10 A-3 Flow CD13 A-5 Flow CD20 A-1 Flow CD5 A-4 Flow CD19 A-6 Flow CD33 A-7 Flow CD34 A-8 Flow CD45 A-9 [place]+CD19+ A-10 Lambda+CD19+ 12/04/2021 9:[address] [facility] Disclaimer Test performed at [facility], [address] [place] [address], [address]. *The established laboratory minimum viability is 70%. [...] complexity clinical testing. 12/04/2021 9:26 AM CDT [facility] Embedded Images 9:26 AM CDT [facility] Pathology/Cytolo gy BONE MARROW SPECIMEN / Unknown 12/01/2021 8:35 AM CDT 12/01/2021 3:48 PM CDT Yajaira Rao MD LAB - PATHOLOGY/CYTOLOGY ORDERAB LES Final Result [facility] [address] [phone] documented in this encounter Visit Diagnoses Diagnosis Iron deficiency anemia secondary to blood loss (chronic) documented in this encounter Care Teams Kettle Operator Head Relationship Specialty Start Date End Date Taqueria Singleton MD [address] [place] [address] PCP - General 06/19/21 07/10/23 Manuel Salcedo DO [address] [place] [address] PCP - General Family Medicine 07/11/23 documented as of this encounter
--- OUTSIDE RECORDS SUMMARY | 2024-12-02 09:49 | XMS_ITS | Encounter Summary ---
Author Organization [facility] Address [address] [place] [address] Care Team Providers Care Survey Interviewer Name Role Phone Susan Montemayor MD Primary Care Provider [phone]- [phone] Encounter Details Date Type Department Care Team ([facility] Contact Info) Description 06/06/1999 Outpatient Historical [facility] Internal Medicine [facility] and [address] [address] Hyun Romo MD 39[address] [facility] [address] [place] [address] Social History Tobacco Use Types Packs/Day Years Used Date Smoking Tobacco: Never Assessed Comments Unknown Sex and Gender Information Value Date Recorded Sex Assigned at Not on file Legal Sex Female 4:40 AM INSTRUCTOR WATCH ASSEMBLY Gender Identity Not on file Sexual Orientation Not on file documented as of this encounter Plan of Treatment Upcoming Encounters Date Type Department Care Team (Late Contact Info) Description 04/26/2025 10:00 AM INSTRUCTOR WATCH ASSEMBLY Office Visit [facility] Oncology and Hematology - [place] [address] [facility] [address] [place] [address] Samm Canas MD [address] [facility] [address] [place] [address] documented as of this encounter Visit Diagnoses Not on filedocumented in this encounter Care Teams Survey Interviewer Relationship Specialty Start Date End Date Susan Montemayor MD [facility] [facility] [address] [place] [address] PCP - General Family Practice 07/27/24 documented as of this encounter
--- OUTSIDE RECORDS SUMMARY | 2024-12-02 09:49 | XMS_ITS | Encounter Summary ---
Author Organization [facility] Address [address] [place] [address] Care Team Providers Care Pediatric Critical Care Nurse Name Role Phone Susan Montemayor MD Primary Care Provider [phone] Encounter Details Date Type Department Care Team ([facility] Contact Info) Description 07/04/1999 Outpatient Historical [facility] Internal Medicine [facility] and [address] [address] Hyun Romo MD [address] [facility] [address] [place] [address] Social History Tobacco Use Types Packs/Day Years Used Date Smoking Tobacco: Never Assessed Comments Unknown Sex and Gender Information Value Date Recorded Sex Assigned at Not on file Legal Sex Female 4:40 AM IMMIGRATION COORDINATOR Gender Identity Not on file Sexual Orientation Not on file documented as of this encounter Plan of Treatment Upcoming Encounters Date Type Department Care Team (Late Contact Info) Description 04/26/2025 10:00 AM IMMIGRATION COORDINATOR Office Visit [facility] Oncology and Hematology - [place] [address] [facility] [address] [place] [address] Samm Canas MD [address] [facility] [address] [place] [address] documented as of this encounter Visit Diagnoses Not on filedocumented in this encounter Care Teams Pediatric Critical Care Nurse Relationship Specialty Start Date End Date Susan Montemayor MD [facility]7 [facility] [address] [place] [address] PCP - General Family Practice 07/27/24 documented as of this encounter
--- OUTSIDE RECORDS SUMMARY | 2024-12-02 09:49 | XMS_ITS | Encounter Summary ---
Author Organization [facility] Address [address] [place] [address] Care Team Providers Care Lumber Marker Name Role Phone Susan Montemyaor MD Primary Care Provider [phone]- [phone] Encounter Details Date Type Department Care Team (Late Contact Info) Description 09/05/1999 Outpatient Historical [facility] Internal Medicine [facility] and [address] [place] [address] Jaelyn Mayo MD [address] [facility] [address] [place] [address] Social History Tobacco Use Types Packs/Day Years Used Date Smoking Tobacco: Never Assessed Comments Unknown Sex and Gender Information Value Date Recorded Sex Assigned at Not on file Legal Sex Female 4:40 AM EDUCATIONAL PSYCHOLOGIST Gender Identity Not on file Sexual Orientation Not on file documented as of this encounter Plan of Treatment Upcoming Encounters Date Type Department Care Team (Late st Contact Info) Description 04/26/2025 10:00 AM EDUCATIONAL PSYCHOLOGIST Office Visit [facility] Oncology and Hematology - [place] [address] [facility] [address] [place] [address] Samm Canas MD [address] [facility] [address] [place] [address] documented as of this encounter Visit Diagnoses Not on filedocumented in this encounter Care Teams Lumber Marker Relationship Specialty Start Date End Date Susan Montemayor MD [address] [facility] [address] [place] [address] PCP - General Family Practice 07/27/24 documented as of this encounter
--- OUTSIDE RECORDS SUMMARY | 2024-12-02 09:49 | XMS_ITS | Encounter Summary ---
Author Organization [facility] Healthcare Address [address] [place] [address] Care Team Providers Care Optical Laboratory Technician Name Role Phone Taqueria Singleton MD Primary Care Provider [phone] Reason for Visit * Diagnostic Imaging (Routine) - Closed Specialty Diagnoses / Procedures Referred By Contac t Referred To Contact Procedures Breast Imaging Screening Outside Reference Aft, Beverley Leung MD PhD [address] [place] [address] Phone: tel: fax: Referral ID Status Reason Start Date Expiration Date Visits Re quested Visits Authorized [id number] Closed 07/17/2021 08/16/2022 1 1 Encounter Details Date Type Department Care Team (Late st Contact Info) Description 11/08/2017 Hospital Encounter [facility] [address] [place], [place] [address] Social History Tobacco Use Types Packs/Day Years [...] on file Legal Sex Female 11:24 PM HEAD UP OPERATOR Gender Identity Female 12/31/2022 7:44 AM CDT [...] CDT) Impressions [facility] - 07/17/2021 3:30 PM HEAD UP OPERATOR These images are for Reference purposes only and have not been reviewed by [facility]iology. There will be no report generated by a [facility] Radiologist. Narrative [facility] - 07/17/2021 3:30 PM HEAD UP OPERATOR EXAMINATION: Images For Reference Purposes Only us Beverley Riley MD PhD IMG MAMMO PROCEDURES Final Result [facility] documented in this encounter Visit Diagnoses Not on filedocumented in this encounter Care Teams Optical Laboratory Technician Relationship Specialty Start Date End Date Taqueria Singleton MD [address] [place] [address] PCP - General 03/06/17 03/06/22 documented as of this encounter
--- OUTSIDE RECORDS SUMMARY | 2024-12-02 09:49 | XMS_ITS | Encounter Summary ---
Author Organization [facility] Healthcare Address [address] [place] [address] Care Team Providers Care Sql Developer Dba Name Role Phone Taqueria Singleton MD Primary Care Provider [phone] Reason for Visit * Diagnostic Imaging (Routine) - Closed Specialty Diagnoses / Procedures Referred By Contac t Referred To Contact Procedures Breast Imaging Screening Outside Reference Aft, Beverley Leung MD PhD [address] [place] [address] Phone: tel: fax: Referral ID Status Reason Start Date Expiration Date Visits Re quested Visits Authorized [id number] Closed 07/17/2021 08/16/2022 1 1 Encounter Details Date Type Department Care Team (Late st Contact Info) Description 05/03/2020 Hospital Encounter [facility] [address] [place], [place] [address] Social History Tobacco Use Types Packs/Day Years [...] on file Legal Sex Female 11:24 PM LEGEND MAKER Gender Identity Female 12/31/2022 7:44 AM CDT Sexual Orientation Straight 12/31/2022 7: 44 AM CDT documented as of this encounter Functional Status documented as of this encounter Plan of Treatment Not on file documented as of this encounter Procedures Procedure Name Priority Date/Time Associated Diagnosis Comments BREAST IMAGING MG SCREENING OUTSIDE REFERENCE Routine 05/03/2020 12:00 AM LEGEND MAKER documented in this encounter Results * Breast Imaging Screening Outside Reference (05/03/2020 12:00 AM LEGEND MAKER) Impressions [facility] - 07/17/2021 3:31 PM LEGEND MAKER These images are for Reference purposes only and have not been reviewed by [facility] Radiology. There will be no report generated by a [facility] Radiologist. Narrative [facility] - 07/17/2021 3:31 PM LEGEND MAKER EXAMINATION: Images For Reference Purposes Only us Beverley Riley MD PhD IMG MAMMO PROCEDURES Final Result [facility] documented in this encounter Visit Diagnoses Not on filedocumented in this encounter Care Teams Sql Developer Dba Relationship Specialty Start Date End Date Taqueria Singleton MD [address] [place] [address] PCP - General 03/06/17 03/06/22 documented as of this encounter
--- OUTSIDE RECORDS SUMMARY | 2024-12-02 09:49 | XMS_ITS | Encounter Summary ---
Author Organization [facility] Healthcare Address [address] [place] [address] Care Team Providers Care Machine Feeder Raw Stock Name Role Phone Taqueria Singleton MD Primary Care Provider [phone] Reason for Visit * Diagnostic Imaging (Routine) - Closed Specialty Diagnoses / Procedures Referred By Contac t Referred To Contact Procedures Breast Imaging Screening Outside Reference Aft, Beverley Leung MD PhD [address] [place] [address] Phone: tel: fax: Referral ID Status Reason Start Date Expiration Date Visits Re quested Visits Authorized [id number] Closed 07/17/2021 08/16/2022 1 1 Encounter Details Date Type Department Care Team (Late st Contact Info) Description 11/11/2018 Hospital Encounter [facility]iology [facility] [address] [place], [place] [address] Social History Tobacco Use Types Packs/Day Years [...] on file Legal Sex Female 11:24 PM SKIN THERAPIST Gender Identity Female 12/31/2022 7:44 AM CDT [...] CDT) Impressions [facility] - 07/17/2021 3:31 PM SKIN THERAPIST These images are for Reference purposes only and have not been reviewed by [facility] Radiology. There will be no report generated by a [facility] Radiologist. Narrative [facility] - 07/17/2021 3:31 PM SKIN THERAPIST EXAMINATION: Images For Reference Purposes Only us Beverley Riley MD PhD IMG MAMMO PROCEDURES Final Result [facility] documented in this encounter Visit Diagnoses Not on filedocumented in this encounter Care Teams Machine Feeder Raw Stock Relationship Specialty Start Date End Date Taqueria Singleton MD [address] [place] [address] PCP - General 03/06/17 03/06/22 documented as of this encounter
--- OUTSIDE RECORDS SUMMARY | 2024-12-02 09:49 | XMS_ITS | Encounter Summary ---
Author Organization [facility] Address [address] [place] [address] Phone Care Team Providers Care Side Seam Machine Operator Name Role Phone Taqueria Singleton MD Primary Care Provider [phone] Manuel Salcedo DO Primary Care Provider [phone] Melissa Jeff NP Unavailable [phone] Lola Israel MD Unavailable [phone] Samm Canas MD Unavailable [phone] Dandre Garrido MD Unavailable Franci Gilliam PhD Unavailable [phone] Linda Pichardo MD Unavailable [phone] Encounter Details Date Type Department Care Team (Late st Contact Info) Description 07/05/2021 Telephone [facility] [address] [facility] Advanced Medicine 5th [place] [address] [place] [address] Gabriela Ng, YANET Social History Tobacco Use Types Packs/Day Years Used Date Smoking Tobacco: Never Alcohol Use Standard Drinks/Week Comments No 0 (1 standard drink = 0.6 oz pur e alcohol) Comments Unknown Sex and Gender Information Value Date Recorded Sex Assigned at Not on file Legal Sex Female 11:24 PM ENERGY RISK MANAGEMENT ANALYST Gender Identity Female 12/31/2022 7:44 AM CDT Sexual Orientation Straight 12/31/2022 7: 44 AM CDT documented as of this encounter Plan of Treatment Not on file documented as of this encounter Visit Diagnoses Not on filedocumented in this encounter Care Teams Side Seam Machine Operator Relationship Specialty Start Date End Date Taqueria Singleton MD [address] [place] [address] PCP - General 03/06/17 03/06/22 Manuel Salcedo DO [address] [place] [address] PCP - General Family Medicine 03/07/22 Melissa Jeff NP [address] [address] Nurse Practitioner Nurse Practitioner 09/12/22 Lola Israel MD [address] [address] Surgeon Surgical Oncology 09/12/22 02/04/23 Samm Canas MD [address] [address] Referring Physician Hematology 09/12/22 Dandre Garrido MD [address] [place] [address] Radiation Oncologist Radiation Oncology 09/27/22 Franci Gilliam, PhD [address] [place] [address] Nurse Practitioner Radiation Oncology 10/23/22 Linda Pichardo MD [address] [facility] [address] DIV IM MEDICAL ONCOLOGY, [address] [place] [address] Surgeon Breast Surgery 02/05/23 documented as of this encounter
--- OUTSIDE RECORDS SUMMARY | 2024-12-02 09:49 | XMS_ITS | Encounter Summary ---
Author Organization [facility] Healthcare Address [address] [place] [address] Care Team Providers Care Acid Filler Name Role Phone Rolf Kasper MD Primary Care Provider [phone] Reason for Visit * Diagnostic Imaging (Routine) - Closed Specialty Diagnoses / Procedures Referred By Contac t Referred To Contact Procedures Breast Imaging Screening Outside Reference Aft, Beverley Leung MD PhD [address] [place] [address] Phone: tel: fax: Referral ID Status Reason Start Date Expiration Date Visits Re quested Visits Authorized [id number] Closed 07/17/2021 08/16/2022 1 1 Encounter Details Date Type Department Care Team (Late st Contact Info) Description 08/17/[address] [facility] [address] [place] [address] Social History Tobacco Use Types Packs/Day Years [...] file Legal Sex Female 11:24 PM MANAGER EDUCATIONAL Gender Identity Female 12/31/2022 7:44 AM CDT [...] CDT) Impressions [facility] - 07/17/2021 3:30 PM MANAGER EDUCATIONAL These images are for Reference purposes only and have not been reviewed by [facility] Radiology. There will be no report generated by a [facility] Radiologist. Narrative [facility] - 07/17/2021 3:30 PM MANAGER EDUCATIONAL EXAMINATION: Images For Reference Purposes Only us Beverley Riley MD PhD IMG MAMMO PROCEDURES Final Result [facility] documented in this encounter Visit Diagnoses Not on filedocumented in this encounter Care Teams Acid Filler Relationship Specialty Start Date End Date Rolf Kasper MD [address] [facility] [place] [address] PCP - General 06/29/14 02/20/17 documented as of this encounter
--- OUTSIDE RECORDS SUMMARY | 2024-12-02 09:49 | XMS_ITS | Encounter Summary ---
Author Organization [facility] Address [address] [place] [address] Care Team Providers Care Residential Program Director Name Role Phone Susan Montemayor MD Primary Care Provider [phone] Encounter Details Date Type Department Care Team (Late Contact Info) Description 09/29/1999 Outpatient Historical [facility] Internal Medicine [facility] and [address] [place] [address] Jaelyn Mayo MD [address] [facility] [address] [place] [address] Social History Tobacco Use Types Packs/Day Years Used Date Smoking Tobacco: Never Assessed Comments Unknown Sex and Gender Information Value Date Recorded Sex Assigned at Not on file Legal Sex Female 4:[address] BAILIFF Gender Identity Not on file Sexual Orientation Not on file documented as of this encounter Plan of Treatment Upcoming Encounters Date Type Department Care Team (Late st Contact Info) Description 04/26/2025 10:[address] BAILIFF Office Visit [facility] ([facility] Oncology and Hematology - [place] [address] [facility] [address] [place] [address] Samm Canas MD [address] [facility] [address] [place] [address] documented as of this encounter Visit Diagnoses Not on filedocumented in this encounter Care Teams Residential Program Director Relationship Specialty Start Date End Date Susan Montemayor MD [address] [facility] [address] [place] [address] PCP - General Family Practice 07/27/24 documented as of this encounter
--- OUTSIDE RECORDS SUMMARY | 2024-12-02 09:49 | XMS_ITS | Clinical Summary ---
Author Organization [facility] Address [address] [place] [address] Care Team Providers Care Car Chaser Name Role Phone Susan Montemayor MD Primary Care Provider [phone] Allergies Active Allergy Reactions Criticality Noted Date [...] Encounters Date Type Department Care Team Description 11/11/2024 External Device Data [facility] ABSTRACTION Provider, Abstract 11/10/2024 External Device Data [facility] ABSTRACTION Provider, Abstract 10/15/2024 External Device Data [place] ABSTRA[place] Provider, Abstract 10/14/2024 External Device Data [place] Provider, Abstract 10/13/2024 External Device Data [place]STRA[place] Provider, Abstract [...] on file Legal Sex Female 4:40 AM INVESTOR RELATIONS MANAGER Gender Identity Not on file Sexual Orientation Not on file Occupation Industry Job Start Date Job End Date Not on file Not on file Not on file Not on file Last Filed Vital Signs Vital Sign Reading Time Taken Comments Blood Pressure 115/57 07/27/2024 11:22 AM INVESTOR RELATIONS MANAGER Pulse 66 07/27/2024 11:22 AM INVESTOR RELATIONS MANAGER Temperature 35.9 C (96.7 F) 07/27/2024 11:22 AM INVESTOR RELATIONS MANAGER Respiratory Rate 15 07/27/2024 11:22 AM INVESTOR RELATIONS MANAGER Oxygen Saturation 98% 07/27/2024 11:22 AM INVESTOR RELATIONS MANAGER Inhaled Oxygen Concentration - - Weight 79.2 kg (174 lb 9.6 oz) 07/27/2024 11:22 AM INVESTOR RELATIONS MANAGER Height 170.2 cm (5' 7) 12/12/2021 8:38 AM CDT Body Mass Index 27.35 12/12/2021 8:38 AM CDT Plan of Treatment Upcoming Encounters Date Type Department Care Team (Late st Contact Info) Description 04/26/2025 10:00 AM INVESTOR RELATIONS MANAGER Office Visit [facility] Oncology and Hematology - [place] [address] [facility] [address] [place] [address] Samm Canas MD [address] [facility] [address] [place] [address] Health Maintenance Due Date Last Done Comments DIABETES ANNUAL FOOT EXAM 1964 DIABETES MICROALBUMIN ANNUAL SCREEN 1964 LDL CHOLESTEROL ANNUAL 1964 DTAP/TDAP/TD VACCINES (1 - Tdap) 1965 PNEUMOCOCCAL VACCINE 50+ YEA RS (1 of 2 - PCV) 1965 ZOSTER VACCINE (1 of 2) 1996 DIABETES HBA1C Q 6 MONTHS 07/03/20192018, 07/03/2018, 02/21/2018, Additional history exists DIABETES ANNUAL RETINAL EXAM 05/04/202001/2019, 03/12/2019, 03/12/2019, Additional history exists RSV VACCINE (60+ or ) (1 - 1-dose 75+ series) 2021 COVID-19 Vaccine (3 - 2023-2 5 season) 2024 03/05/2023, 09/13/2021 INFLUENZA VACCINE (#1) 2024 OSTEOPOROSIS SCREENING 09/28/2027 , 09/27/2022, 08/17/2016, Additional history exists COLORECTAL SCREENING Discontinued 03/06/2017 Colorectal Cancer Screening Discontinued FIT-DNA Q 3 years Discontinued FIT/FOBT Q 1 year Discontinued Flex Sig/CT Colonography Q 5 years Discontinued Insurance [facility] M[facility] Care Teams Car Chaser Relationship Specialty Start Date End Date Susan Montemayor MD [address] [place] [address] PCP - General Family Practice 07/27/24
--- OUTSIDE RECORDS SUMMARY | 2024-12-02 09:49 | XMS_ITS | Clinical Summary ---
Author Organization [facility] Address [address] [place] [address] Care Team Providers Care Analysis Specialist Name Role Phone ShelbylucianManuel DO Primary Care Provider [phone] Source Comments [facility],non-owned Affiliates and Associated Physician Practices is amultiple site organization consisting of ambulatory clinics and hospital sitesin [place], [place], [place]. This disclosure is being madepursuant to the Care Everywhere program and may not contain all information available regarding this patient. Last updated 18.[facility] Allergies Active Allergy Reactions Criticality Noted Date [...] document. Alwaysverify current medications with the patient. simvastatin (Zocor) 20 MG tablet Take 1 (one) tablet by mouth every evening 4 Active losartan-hydro CHLOROthiazide (Hyzaar) 100-25 MG tablet Take 1 (one) tablet by mouth once daily 4 Active escitalopram (Lexapro) 5 MG tablet Take 1 (one) tablet by mouth once daily 4 Active carvedilol (Coreg) 12.5 MG tablet Take 1 (one) tablet by mouth 2 times daily with morning and evening meal 3 Active aspirin EC (Ecotrin) 81 MG tablet Take 1 (one) tablet by mouth every morning Active insulin glargine (Lantus/Semgle e) 100 units/mL pen 10 (ten) Units to 15 (fifteen) Units at bedtime Active Semglee, yfgn, pen 20 UNIT (0.2 ML) SUBCUTANEOUSLY DAILY 3 Active Multiple Vitamin (Multi-Day Vitamins) TABS Take 1 (one) tablet by mouth once daily Active metFORMIN (Glucophage) 500 MG tablet Take 1 (one) tablet by mouth Active vitamin D3 (Cholecalcifer ol) 25 MCG (1000 UNITS) tablet Take 1 (one) tablet by mouth once daily Active ferrous sulfate 325 (65 FE) MG tablet Take 1 (one) tablet by mouth once daily Active fluconazole (Diflucan) 200 MG tabletIndicati ons:Vaginal discharge Diflucan 200 mg tablet, one by mouth every other day for three doses. 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 Diagnosis. 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 Gender Identity Not on file Sexual Orientation Not on file Last Filed Vital Signs Vital Sign [place] Time Taken Comments Blood Pressure 130/70 07/11/2023 1:19 PM 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 Pulse - - Temperature - - Respiratory Rate - - Oxygen Saturation - - Inhaled Oxygen Concentration - - Weight 79.8 kg (176 lb) 07/11/2023 1:19 PM 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 Height 170.2 cm (5' 7) 07/11/2023 1:19 PM 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 Body Mass Index 27.57 07/11/2023 1:19 PM 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 Plan of Treatment Health Maintenance Due Date Last Done Comments MEDICARE AWV 12 MONTHS 1945 HEPATITIS C SCREENING 07/08/1963 DIABETES-SERUM CREATININE 1964 [...] 2024 03/05/2023, 03/10/2022, 09/13/2021, Additional history exists DEPRESSION SCREENING 05/27/2024 DIABETES - URINE PROTEIN SCREENING 05/27/2024 INFLUENZA VACCINE (Season Ended) 2025 03/05/2023, 03/10/2022, 02/22/2021, Additional history exists BONE DENSITY TESTING Completed 09/27/2022, 06/23/19 13 HEPATITIS B VACCINE Aged Out No longe r eligible based on patient's age to complete this topic HIB VACCINE Aged Out No longer eligi ble based on patient's age to complete this topic HPV VACCINE Aged Out No longer eligi ble based on patient's age to complete this topic MENINGOCOCCAL (Group B) VACCINE SHARED DECISION-MAKING Aged Out No longer eligible based on patient's age to complete this topic MENINGOCOCCAL GROUPS A/C/Y/W VACCINE Aged Out No longer eligible based on patient's age to complete this topic Insurance [employer] MEDICARE E[employer]ENCE MEDICARE Care Teams Analysis Specialist Relationship Specialty Start Date End Date Manuel Salcedo DO [address] [place] [phone] PCP - General Family Medicine 07/11/23
--- OUTSIDE RECORDS SUMMARY | 2024-12-02 09:49 | XMS_ITS ---
Author Organization [facility] Address [address] [place] [address] Care Team Providers Care Yoghurt Maker Name Role Phone Manuel Salcedo Primary Care Provider [phone] Melissa Jeff NP Unavailable [phone] Samm Canas MD Unavailable [phone] Dandre Grarido MD Unavailable Franci Gilliam PhD Unavailable [phone] Linda Pichardo MD Unavailable [phone] Active Problems Problem Noted Date Diagnosed Date Prophylactic use of tamoxifen 10/16/2023 Encounter for monitoring tamoxifen therapy 10/15 History of breast cancer 09/17/2022 Hyperlipidemia 11/14/2021 Lobular carcinoma in situ (LCIS) of right breast 11/14/2021 Chronic anemia 11/10/2021 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 Diagnosis. 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 Diagnosis. 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 - SURGERY - CE/BZA / [place] 08/03/2021 08/06/2023 [facility] conj estrogens 0.45 MG-bazedoxifene 20 MG/placebo (2016-10-188/NU [...]
--- OUTSIDE RECORDS SUMMARY | 2024-12-02 09:49 | XMS_ITS | Encounter Summary ---
Author Organization [facility] Address [address] [place] [address] Care Team Providers Care Metal Lather Name Role Phone Susan Montemayor MD Primary Care Provider [phone] Encounter Details Date Type Department Care Team (Late Contact Info) Description 09/25/1999 Outpatient Historical [facility] Internal Medicine [facility] and [address] [place] [address] Jaelyn Mayo MD [address] [facility] [address] [place] [address] Social History Tobacco Use Types Packs/Day Years Used Date Smoking Tobacco: Never Assessed Comments Unknown Sex and Gender Information Value Date Recorded Sex Assigned at Not on file 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 Gender Identity Not on file Sexual Orientation Not on file documented as of this encounter Plan of Treatment Upcoming Encounters Date Type Department Care Team (Late st Contact Info) Description 04/26/2025 10:00 AM 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
--- OUTSIDE RECORDS SUMMARY | 2024-12-02 09:49 | XMS_ITS | Encounter Summary ---
Author Organization [facility] Address [address] [place] [address] Care Team Providers Care Furnace Clerk Name Role Phone Susan Montemayor MD Primary Care Provider [phone] Encounter Details Date Type Department Care Team (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 Gender Identity Not on file Sexual Orientation Not on file documented as of this encounter Plan of Treatment Upcoming Encounters Date Type Department Care Team (Late Contact Info) Description 04/26/2025 10:00 AM PARTY PLAN SALES HOST/HOSTESS Office Visit [facility] Oncology and Hematology - [place] [address] [facility] [address] [place] [address] Samm Canas MD [address] [facility] [address] [place] [address] documented as of this encounter Visit Diagnoses Not on filedocumented in this encounter Care Teams Furnace Clerk Relationship Specialty Start Date End Date Susan Montemayor MD [facility] [facility] [address] [place] [address] PCP - General Family Practice 07/27/24 documented as of this encounter
--- OUTSIDE RECORDS SUMMARY | 2024-12-02 09:49 | XMS_ITS | Clinical Summary ---
Author Organization [facility] Address [address] [place] [address] Care Team Providers Care Vehicle Controls Engineer Name Role Phone Manuel Salcedo DO Primary Care Provider [phone] Melissa Jeff NP Unavailable [phone] Samm Canas MD Unavailable [phone] Dandre Garrido MD Unavailable Franci Gilliam PhD Unavailable [phone] Linda Pichardo MD Unavailable [phone] Allergies Active Allergy Reactions Criticality Noted Date [...] by mouth every morning 1 9 Active cholecalcifero l (VITAMIN D-3) 25 mcg (1,000 unit) tabletIndicati ons:Vitamin D Deficiency Take 1 tablet (1,000 Units total) by mouth every morning Active cyanocobalamin (Vitamin B-12) 1,000 mcg tabletIndicati ons:Prevention of Vitamin B12 Deficiency Take 2 tablets (2,000 mcg total) by mouth every morning Active multivit-min/f olic acid/mdi597 (ALIVE PREMIUM ADULT ORAL)Indicatio ns:supplement Take 2 tablets by mouth every morning Active BD Ultra-Fine Short Pen Needle 31 gauge x 10/09 needle USE 1 NEEDLE WITH INSULIN PEN TO INJECT INSULIN DAILY 3 Active SEMGLEE-yfgn 100 unit/mL (3 mL) pen for injection INJECT 10 UNIT (0.1 ML) SUBCUTANEOUSLY EVERY EVENING 4 Active tamoxifen (NOLVADEX) 10 mg tabletIndicati ons:prevention of breast cancer in high risk women Take 0.5 tablets (5 mg total) by mouth daily Or take one tablet every other day 45 tablet 3 5 026 Active carvediloL (COREG) 12.5 mg tablet TAKE 1 TABLET BY MOUTH TWICE A DAY WITH FOOD 60 tablet 1 5 Active losartan-hydro chlorothiazide (HYZAAR) 100-25 mg per tablet TAKE 1 TABLET BY MOUTH EVERY DAY 90 tablet 1 5 Active Accu-Chek Estefanía Plus test strp strip Use one test strip TID to check blood sugar. 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 Diagnosis. 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 Diagnosis. 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 Transoral closure of left orocutaneous fistula ([place] 10/11/2015) Irrigation and washout of left neck wound ([place] 10/11/2015) Seasonal allergy 06/08/2014 Overview (08/31/2016): Seasonal [...] Encounters Date Type Department Care Team Description 09/24/2024 Telephone [facility] Oncology [address] [place] [address] Esther Espinoza, Dafne 09/21/2024 10:30 AM CDT - 09/21/2024 11:59 PM CDT Hospital Encounter [facility] Breast Imaging [address] [facility] [address] [place] [address] History of breast cancer Discharge Disposition: Discharge to home or self care 09/21/2024 9:45 AM CDT Office Visit [facility] [address] [facility] [address] [place] [address] Hailey Adorno, SKYLER Lobular carcinoma in situ (LCIS) of right breast (Primary Dx); History of breast cancer; Encounter for screening mammogram for malignant neoplasm of breast from Last 3 Months Immunizations Immunization Administration Dates Next Due COVID-19 mRNA (Tripl) 0.3 m L (30 mcg) vaccine (12 years and up) 03/05/2023 Hep B Vaccine 07/25/2001,02/26/2001,01/24/2001 Influenza, Quad, Adjuvantate d, Intramuscular 02/22/2021 Influenza, Quadrivalent, Hig h Dose, Preservative Free, Intrr 02/02/2020 Influenza, Trivalent, Adjuva nted, Intramuscular 02/19/2019 Influenza, Trivalent, High D ose, Split, Preservative Free, Intramuscular 03/06/2018,03/05/2018,03/14/2017 wufoo SARS-CoV-2 Monovalent Vaccination (12+ Yrs) -READY TO USE 09/13/2021 Pneumococcal Polysaccharide PPV23 02/19/2019 Td, adsorbed 01/29/2006 ZOSTER LIVE 09/13/2014 ZOSTER Recombinant 05/13/2020,02/02/2020 Surgical History Surgery Date Site/Laterality Comments CHOLECYSTECTOMY [...] 2 diabetes mellitus (HCC) Anemia 2000 Cancer (HCC) 2015 and 2021 different types/ 2 surgeries Menstrual problem 6020-9990 Dizziness December 21, 2022 History of transfusion 1977 Family History Medical History Relation Name Comments Diabetes Brother 1 Terry Lilly Hypertension Brother 1 Terry Lilly Hypertension ; Diabetes Brother 2 Wilfredo Lilly Hypertension Brother 2 Wilfredo Lilly Diabetes Father Luis Armando Joseph Family [...] Family history of Hypertension; Depression Sister 1 Lisejesus manuel Storey Diabetes Sister 1 Lisejesus manuel Storey Hearing loss Sister 1 Lisejesus manuel Storey Heart failure Sister 1 Lisejesus manuel Storey Hypertension Sister 1 Lisejesus manuel Storey Kidney disease Sister 1 Lise Cordelia Memory loss Sister 1 Lisejesus manuel Storey Stroke Sister 1 Lise Storey Stroke; [...] on file 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 Gender Identity Female 12/31/2022 7:44 AM CDT Sexual Orientation Straight 12/31/2022 7: 44 AM CDT Obstetrics History Para Term AB IAB SAB Ectopic Multiple Livin g Live Births 0 0 Last Filed Vital Signs Vital Sign Reading Time Taken Comments Blood Pressure 130/65 08/15/2024 8:01 PM CDT Pulse 80 08/15/2024 8:01 PM CDT Temperature 36.6 C (97.9 F) 08/15/2024 8:01 PM CDT Respiratory Rate 20 08/15/2024 8:01 PM CDT Oxygen Saturation 98% 08/15/2024 8:01 PM CDT Inhaled Oxygen Concentration - - Weight 81.1 kg (178 lb 12.8 oz) 025 10:00 AM CDT Height 170.2 cm (5' 7) 09/21/2024 10:0 0 AM CDT Body Mass Index 28 09/21/2024 10:00 AM CDT Plan of Treatment Health Maintenance Due Date Last Done Comments Albumin Creatinine Ratio, Urine 1945 Depression Screening 1945 Hemoglobin A1C 1945 Hepatitis C Screening 1945 Dilated Eye Exam 1945 Foot Exam 1945 DTaP/Tdap/Td Vaccine (1 - Tdap) 01/30/2006 6 Well Visit 65+ 2011 Pneumococcal vaccine 65+ (2 of 2 - PCV) 02/20/2020 02/19/2019 eGFR 09/18/2023 09/17/2022 Fall Risk Assessment 09/28/2023 09/27/2022, 08/30/19 22 Lipid Panel 10/16/2023 10/15/2022, 02/24, 08/24/2020, Additional history exists Covid-19 Vaccine (6 - 2023-2 5 season) 2024 03/05/2023, 09/13/2021, 02/22/2021, Additional history exists Osteoporosis Screening-Bone Density Scan 09/27/2024 09/27/2022, 09/27/2022, 06/23/2012, Additional history exists Influenza Vaccine (#1) 2025 , 02/02/2020, 02/19/2019, Additional history exists Hepatitis B Screening Completed 07/25/2001 , 02/26/2001, 01/24/2001 Colon Cancer Screening-CT Colonography Discontinued 03/06/2017 Colon Cancer Screening-Colonoscopy Discontinued 03/06/2017 Colon Cancer Screening-DNA Stool Discontinued 03/06/20 Colon Cancer Screening-FIT Discontinued 03/06/2017 Colon Cancer Screening-FOBT Discontinued 03/06/2017 Colon Cancer Screening-Sigmoidoscopy Discontinued 03/06/2017 Colorectal Cancer Screening Discontinued Zoster Vaccine Completed 05/13/2020, 12/2019, 09/13/2014 Breast Cancer Screening-Mammogram Discontinued 09/21/2024, 09/16/2023, 09/12/2022, Additional history exists Medical Devices Implanted Type Area Wireless Manager Device Identifier Shelf Expiration Date Model / Serial / Lot [employer]ipheral [employer] Ghiatas 20ga 20cm 7cm Beaded Needle Breast Wire Localization [id number] - [id number] Implanted:Qty: 1 on 08/29/2021 at [facility] Right: Breast [employer] [id number] / / [employer] Ghiatas 20ga 20cm 9cm Beaded Needle Breast Wire Localization [id number] - [id number] Implanted:Qty: 1 on 08/29/2021 at [facility] Right: Breast [employer] [id number] / / Procedures Procedure Name Priority Date/Time Associated Diagnosis Comments DIAGNOSTIC MAMMOGRAM BILATERAL W TREVOR Schedule Routine, Read Routine (OP Routine) 09/21/2024 11:30 AM CDT History of breast cancer LIPID PANEL Routine 10/15/2022 4:18 PM CDT [...] Recently Relevant to Health Maintenance Results * Diagnostic Mammogram Bilateral W Trevor (09/21/2024 11:30 AM CDT) Anatomical Region Laterality Modality Breast Bilateral Mammography 09/21/2024 11:3 4 AM CDT Impressions 09/21/2024 1:48 PM CDT Benign changes of RIGHT breast conservation therapy. No new suspicious mammographic finding in EITHER breast. OVERALL FINAL ASSESSMENT: BI-RADS Category 2: Benign. RECOMMENDATION: Annual diagnostic mammography is recommended. Dr. Macias discussed the above findings and recommendations with the patient. Dictated by: Christiano Macias MD The radiology attending physician has personally reviewed this study, and had reviewed and/or edited this written report and agrees with it. Electronically signed by: Dia Whitaker M.D. Narrative 09/21/2024 1:48 PM CDT EXAMINATION: BILATERAL DIGITAL DIAGNOSTIC MAMMOGRAM INCLUDING CAD AND BILATERAL DIGITAL BREAST TOMOSYNTHESIS HISTORY: 79-year-old woman with biopsy-proven RIGHT upper breast ductal carcinoma in situ in June 2021 with subsequent lumpectomy in August 2021 demonstrating lobular carcinoma in situ. Patient presenting for routine follow-up. Of note, patient does not report any surgical history in the LEFT breast, though has a scar in her lower inner periareolar left breast on physical exam. COMPARISON: Multiple mammograms, most recently dated 09/16/2023. Breast MRI dated 05/25/2024. TECHNIQUE: Full field digital mammographic views of BOTH breasts were performed, including computer aided detection (CAD) and BILATERAL digital breast tomosynthesis (DBT). BREAST PARENCHYMAL COMPOSITION: There are scattered areas of fibroglandular density. MAMMOGRAM FINDINGS: There are expected changes of breast conservation therapy in RIGHT breast. There is unchanged area of distortion in the subareolar LEFT breast, stable from multiple prior exams and without suspicious correlate on 05/23/2023 MRI. Patient is noted to have a scar near the areolar region on physical exam. This is compatible with a benign postsurgical finding. There are no new suspicious calcifications, mass, or architectural distortion in EITHER breast. Procedure Note Dia Whitaker MD - 09/21/2024 EXAMINATION: BILATERAL DIGITAL DIAGNOSTIC MAMMOGRAM INCLUDING CAD AND BILATERAL DIGITAL BREAST TOMOSYNTHESIS HISTORY: 79-year-old woman with biopsy-proven RIGHT upper breast ductal carcinoma in situ in June 2021 with subsequent lumpectomy in August 2021 demonstrating lobular carcinoma in situ. Patient presenting for routine follow-up. Of note, patient does not report any surgical history in the LEFT breast, though has a scar in her lower inner periareolar left breast on physical exam. COMPARISON: Multiple mammograms, most recently dated 09/16/2023. Breast MRI dated 05/25/2024. TECHNIQUE: Full field digital mammographic views of BOTH breasts were performed, including computer aided detection (CAD) and BILATERAL digital breast tomosynthesis (DBT). BREAST PARENCHYMAL COMPOSITION: There are scattered areas of fibroglandular density. MAMMOGRAM FINDINGS: There are expected changes of breast conservation therapy in RIGHT breast. There is unchanged area of distortion in the subareolar LEFT breast, stable from multiple prior exams and without suspicious correlate on 05/23/2023 MRI. Patient is noted to have a scar near the areolar region on physical exam. This is compatible with a benign postsurgical finding. There are no new suspicious calcifications, mass, or architectural distortion in EITHER breast. IMPRESSION: Benign changes of RIGHT breast conservation therapy. No new suspicious mammographic finding in EITHER breast. OVERALL FINAL ASSESSMENT: BI-RADS Category 2: Benign. RECOMMENDATION: Annual diagnostic mammography is recommended. Dr. Macias discussed the above findings and recommendations with the patient. Dictated by: Christiano Macias MD The radiology attending physician has personally reviewed this study, and had reviewed and/or edited this written report and agrees with it. Electronically signed by: Dia Whitaker M.D. Hailey Adorno NP IMG MAMMO PROCEDURES Final Result * Lipid panel (10/15/2022 4:18 PM CDT) Cholesterol 145 30 - 199 mg/dL [facility] Comment: Interpretive Data Ages < or = [...] revised on 2018. Triglycerides 71 <=149 mg/dL [facility] Comment: Interpretive Data Ages < or = [...] revised on 2018. HDL 52 >=40 mg/dL [facility] Comment: Interpretive Data Ages < or [...] on 2018. LDL, calculated 79 <=129 mg/dL [facility] Comment: Interpretive Data Ages < or [...] on 2018. Non-HDL Cholesterol 93 mg/[facility] Comment: Interpretive Data Ages < or [...] last revised on 2018. Chol/HDL ratio 3 [facility] Blood 10/15/2022 4:18 PM CDT 10/15/2022 4:57 PM CDT Lola Israel MD LAB BLOOD ORDERABLES Fin al Result [facility] Department [place] [address] * Dexa Axial Skeleton Bone Density 1 or 2 Site (09/27/2022 8:33 AM CDT) Anatomical Region Laterality Modality Body N/A Radiographic Maggie ging Narrative 10/01/2022 4:27 PM CDT Patient Name: Keerthi Lilly Date of : 1945 Date of scan: 09/27/2022 Bone mineral density was performed on a HoloMeraki Discovery Densitometer. Based on machine cross-calibration and [...] by the International Society of Clinical Densitometry. [id number] Lola Israel MD IM DXA PROCEDURES Final Result * (ABNORMAL) eGFR (09/17/2022 11:55 AM CDT) eGFR 56(L) 90 - 130 mL/min/1. 73 m2 [facility] Comment: Interpretive Data Reference Interval Normal [...] was last reviewed 2021. Testing performed by: [facility] [place], [address] [facility] [id number] Blood 09/17/2022 11:5 5 AM CDT 09/17/2022 11:56 AM CDT us Lola Israel MD LAB BLOOD ORDERABLES Fin al Result Performing Organization Address City/State/ZIP [place] Phone Number [facility] Department [place] [address] * COLONOSCOPY REPORT (03/06/2017) Anatomical Region Laterality Modality Other us Provider Scanning GI PROCEDURE ORDERABLES Final Result from Last 3 Months or Most Recently Relevant to Health Maintenance Insurance [facility] Care Teams Vehicle Controls Engineer Relationship Specialty Start Date End Date Manuel Salcedo DO PCP - General Family Medicine 03/07/22 Melissa Jeff NP [phone] [address] Nurse Practitioner Nurse Practitioner 09/12/22 Samm Canas MD [address] [facility] [address] [place] [address] Referring Physician Hematology 09/12/22 Dandre Garrido MD [address] [facility] [address] [place] [address] Radiation Oncologist Radiation Oncology 09/27/22 Franci Gilliam, PhD [address] [facility] [address] [place] [address] Nurse Practitioner Radiation Oncology 10/23/22 Linda Pichardo MD [address] [facility] [address] DIV MEDICAL ONCOLOGY, [facility] [address] [place] [address] Surgeon Breast Surgery 02/05/23
--- OUTSIDE RECORDS SUMMARY | 2024-12-02 09:49 | XMS_ITS | Encounter Summary ---
Author Organization [facility] Address [address] [place] [address] Care Team Providers Care Battery Filler Name Role Phone Susan Montemayor MD Primary Care Provider [phone] Encounter Details Date Type Department Care Team ([facility] Contact Info) Description 06/20/1999 Outpatient Historical [facility] Internal Medicine [facility] and [address] [address] Hyun Romo MD [address] [facility] [address] [place] [address] Social History Tobacco Use Types Packs/Day Years Used Date Smoking Tobacco: Never Assessed Comments Unknown Sex and Gender Information Value Date Recorded Sex Assigned at Not on file 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 Gender Identity Not on file Sexual Orientation Not on file documented as of this encounter Plan of Treatment Upcoming Encounters Date Type Department Care Team (Late Contact Info) Description 04/26/2025 10:00 AM SIGNAL MAINTENANCE TECHNICIAN Office Visit [facility] Oncology and Hematology - [place] [address] [facility] [address] [place] [address] Samm Canas MD [address] [facility] [address] [place] [address] documented as of this encounter Visit Diagnoses Not on filedocumented in this encounter Care Teams Battery Filler Relationship Specialty Start Date End Date Susan Montemayor MD [facility] [facility] [address] [place] [address] PCP - General Family Practice 07/27/24 documented as of this encounter
--- OUTSIDE RECORDS SUMMARY | 2024-12-02 09:49 | XMS_ITS | Encounter Summary ---
Author Organization [facility] Address 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 Gender Identity Not on file Sexual Orientation Not on file documented as of this encounter Plan of Treatment Upcoming Encounters Date Type Department Care Team (Late Contact Info) Description 04/26/2025 10:00 AM FURNACE KEEPER Office Visit [facility] Oncology and Hematology - [place] [address] [facility] [address] [place] [address] Samm Canas MD [address] [facility] [address] [place] [address] documented as of this encounter Visit Diagnoses Not on filedocumented in this encounter Care Teams Centrifugal Machine Tender Relationship Specialty Start Date End Date Susan Montemayor MD [address] [facility] [address] [place] [address] PCP - General Family Practice 07/27/24 documented as of this encounter
--- OUTSIDE RECORDS SUMMARY | 2024-12-02 09:49 | XMS_ITS | Referral Summary ---
Author Organization [facility] Address [address] [place] [address] Care Team Providers Care Food Service Lead Name Role Phone ShelbyManuel epstein Primary Care Provider [phone] Melissa Jeff NP Unavailable Samm Canas MD Unavailable [phone] Dandre Garrido MD Unavailable Franci Gilliam PhD Unavailable [phone] Linda Pichardo MD Unavailable [phone] Encounters Date Type Department Care Team Description 09/24/2024 Telephone [facility] Oncology [address] [place] [address] [address] [place] [address] sEther Espinoza, A 09/21/2024 10:30 AM CDT - 09/21/2024 11:59 PM CDT Hospital Encounter [facility] [place] - Breast Imaging [address] [place] [address] 8 [place] [address] History of breast cancer Discharge Disposition: Discharge to home or self care 09/21/2024 9:45 AM CDT Office Visit [facility] Surgery [address] [facility] 8 [place] [address] Hailey Adorno NP Lobular carcinoma in situ (LCIS) of right breast (Primary Dx); History of breast cancer; Encounter for screening mammogram for malignant neoplasm of breast from Last 3 Months Allergies Active Allergy [...] by mouth every morning Active multivit-min/f olic acid/obg142 (ALIVE PREMIUM ADULT ORAL)Indicatio ns:supplement Take 2 [...] (07/25/2021): Added automatically from request for surgery [id number] 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 Diagnosis. 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 Diagnosis. 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 Transoral closure of left orocutaneous fistula ([place] 10/11/2015) Irrigation and washout of left neck wound ([place] 10/11/2015) Seasonal allergy 06/08/2014 Overview (08/31/2016): Seasonal [...] 10/16/2023 Immunizations Immunization Administration Dates Next Due COVID-19 mRNA (FIA Formula E) 0.3 m L (30 mcg) vaccine (12 years and up) 03/05/2023 Hep B Vaccine 07/25/2001,02/26/2001,01/24/2001 Influenza, Quad, Adjuvantate d, Intramuscular 02/22/2021 Influenza, Quadrivalent, Hig h Dose, Preservative Free, Intrr 02/02/2020 Influenza, Trivalent, Adjuva nted, Intramuscular 02/19/2019 Influenza, Trivalent, High D ose, Split, Preservative Free, Intramuscular 03/06/2018,03/05/2018,03/14/2017 MobGold SARS-CoV-2 Monovalent Vaccination (12+ Yrs) -READY TO USE 09/13/2021 Pneumococcal Polysaccharide PPV23 02/19/2019 Td, adsorbed 01/29/2006 ZOSTER LIVE 09/13/2014 ZOSTER Recombinant 05/13/2020,02/02/2020 Social History Tobacco Use Types Packs/Day Years [...] on file 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 Gender Identity Female 12/31/2022 7:44 AM CDT [...] 09/21/2024 10:00 AM CDT Plan of Treatment Not on file Medical Devices Implanted Type Area Clerical Grader Device Identifier Shelf Expiration Date Model / Serial / Lot Bard Peripheral Vascular Ghiatas 20ga 20cm 7cm Beaded Needle Breast Wire Localization [id number] - [id number] Implanted:Qty: 1 on 08/29/2021 at [facility] Right: Breast Bard Peripheral Vascular [id number] / / Bard Peripheral Vascular Ghiatas 20ga 20cm 9cm Beaded Needle Breast Wire Localization [id number] - [id number] Implanted:Qty: 1 on 08/29/2021 at [facility] Right: Breast Bard Peripheral Vascular [id number] / / Procedures Procedure Name Priority Date/Time [...] Electronically signed by: Dia Whitaker M.D. Hailey Gomez Kyree GARAGE DOOR SERVICE TECHNICIAN IMG MAMMO PROCEDURES Final Result * Lipid panel (10/15/2022 4:18 PM CDT) Cholesterol 145 30 - 199 mg/dL [facility] Comment: Interpretive Data Ages < [...] revised on 2018. Triglycerides 71 <=149 mg/dL [facility] Comment: Interpretive Data Ages < [...] revised on 2018. HDL 52 >=40 mg/dL [facility] Comment: Interpretive Data Ages < or = [...] on 2018. LDL, calculated 79 <=129 mg/dL [facility] Comment: Interpretive Data Ages < or = [...] revised on 2018. Non-HDL Cholesterol 93 mg/dL [facility] Comment: Interpretive Data Ages < or = [...] last revised on 2018. Chol/HDL ratio 3 [facility] Blood 10/15/2022 4:18 PM CDT 10/15/2022 4:57 PM CDT Lola Israel MD LAB BLOOD ORDERABLES Fin al Result [facility] One [facility] Department [place] [address] * Dexa Axial Skeleton Bone Density 1 or 2 Site (09/27/2022 8:33 AM CDT) Anatomical Region Laterality Modality Body N/A Radiographic Maggie ging Narrative 10/01/2022 4:27 PM CDT Patient Name: Keerthi Lilly Date of : 1945 Date of scan: 09/27/2022 Bone mineral density was performed on a HoloC4X Discovery Discovery Densitometer. Based on machine cross-calibration and [...] by the International Society of Clinical Densitometry. [id number] Lola Israel MD IMG DXA PROCEDURES Final Result * (ABNORMAL) eGFR (09/17/2022 11:55 AM CDT) eGFR 56(L) 90 - 130 mL/min/1. 73 m2 [facility] Comment: Interpretive Data Reference Interval Normal >/= [...] reviewed 2021. Testing performed by: [facility], [address] [place] [id number] Blood 09/17/2022 11:5 5 AM CDT 09/17/2022 11:56 AM CDT Lola Israel MD LAB BLOOD ORDERABLES Fin al Result [facility] One [facility] Department [place] [address] * COLONOSCOPY REPORT (03/06/2017) Anatomical Region Laterality Modality Other us Provider Scanning GI PROCEDURE ORDERABLES Final Result from Last 3 Months or Most Recently Relevant to Health Maintenance Insurance [address] [place] [id number] [facility] Care Teams Food Service Lead Relationship Specialty Start Date End Date Manuel Salcedo DO PCP - General Family Medicine 03/07/22 Melissa Jeff GARAGE DOOR SERVICE TECHNICIAN [address] [address] Nurse Practitioner Nurse Practitioner 09/12/22 Samm Canas MD [address] [facility] [address] [place] [address] Referring Physician Hematology 09/12/22 Dandre Garrido MD [address] [facility] [address] [place] [address] Radiation Oncologist Radiation Oncology 09/27/22 Franci Gilliam, PhD [address] [facility] [address] [place] [address] Nurse Practitioner Radiation Oncology 10/23/22 Linda Pichardo MD [address] [facility] DIV MEDICAL ONCOLOGY, [facility] [place] [address] Surgeon Breast Surgery 02/05/23
--- OUTSIDE RECORDS SUMMARY | 2024-12-02 09:49 | XMS_ITS | Encounter Summary ---
Author Organization [facility] Address [address] [place] [address] Care Team Providers Care Grass Farmer Name Role Phone Susan Montemayor MD Primary Care Provider [phone] Encounter Details Date Type Department Care Team ([facility] Contact Info) Description 04/21/1999 Outpatient Historical [facility] Internal Medicine [facility] and [address] [address] Hyun Romo MD [address] [facility] [address] [place] [address] Social History Tobacco Use Types Packs/Day Years Used Date Smoking Tobacco: Never Assessed Comments Unknown Sex and Gender Information Value Date Recorded Sex Assigned at Not on file Legal Sex Female 4:40 AM ADMINISTRATIVE ASSISTANT Gender Identity Not on file Sexual Orientation Not on file documented as of this encounter Plan of Treatment Upcoming Encounters Date Type Department Care Team (Late Contact Info) Description 04/26/2025 10:00 AM ADMINISTRATIVE ASSISTANT Office Visit [facility] Oncology and Hematology - [place] [address] [facility] [address] [place] [address] Samm Canas MD [address] [facility] [address] [place] [address] documented as of this encounter Visit Diagnoses Not on filedocumented in this encounter Care Teams Grass Farmer Relationship Specialty Start Date End Date Susan Montemayor MD [facility] [facility] [address] [place] [address] PCP - General Family Practice 07/27/24 documented as of this encounter
--- OUTSIDE RECORDS SUMMARY | 2024-12-02 09:49 | XMS_ITS | Encounter Summary ---
Author Organization [facility] Address [address] [place] [address] Care Team Providers Care Photoengraving Supervisor Name Role Phone Taqueria Singleton MD Primary Care Provider [phone] Manuel Salcedo DO Primary Care Provider [phone] Encounter Details Date Type Department Care Team (Late st Contact Info) Description 12/05/2021 Lab Requisition [facility] Care Pathology Lab [address] [place] [address] Yajaira Rao MD [facility] [address] [address] Illness, unspecified Social History Tobacco Use Types Packs/Day Years Used Date Smoking Tobacco: Never Assessed Comments Unknown Sex and Gender Information Value Date Recorded Sex Assigned at Not on file Legal Sex Female 6:08 AM GIFT SHOP ASSISTANT Gender Identity Not on file Sexual [...] Report Bone Marrow Patholog y Report Case: [id number] Authorizing Provider: Yajaira Rao MD Collected: 12/01/2021 08:30 AM Ordering Location: [facility] Pathology Lab Received: 12/05/2021 12:38 PM Pathologist: Bhavik Avilez MD Specimens: A) - Bone Marrow Clot B) - Bone Marrow Core 12/06/2021 2:45 PM CDT [facility] PATHOLOGY LAB Final Diagnosis Bone marrow, aspirate, clot section, and core biopsy: - Slightly hypocellular marrow with maturing trilineage hematopoiesis. - No evidence of lymphoma or high-grade myeloid neoplasm. - See description. Peripheral blood smear: - Normocytic anemia. - See description. 12/06/2021 2:45 PM CDT [facility] PATHOLOGY LAB at 1445 CDT AP Comment No overt dyspoiesis is seen in this case. Immunohistochemistry is performed to assess staining cells in an architectural context. CD34 and CD117 are negative for increased blasts. CD61 highlights normal numbers of megakaryocytes. Pancytokeratin is negative for metastatic carcinoma. 12/06/2021 2:45 PM CDT [facility] PATHOLOGY LAB Peripheral Smear Description RBC: normocytic anemia. WBC: normal in number and morphology. Platelets: normal in number and morphology. 12/06/2021 2:45 PM CDT [facility] PATHOLOGY LAB Bone Marrow Aspirate Differential count (200 cells): normal differential count. Specimen quality: some hemodilution. Spicules: none seen, but megakaryocytes are present. Trilineage Hematopoiesis: present. Myeloid:Erythroid ratio: normal. Myeloid Maturation: normal. Erythroid Maturation: normal. Megakaryocyte morphology: small. 12/06/2021 2:45 PM CDT [facility] PATHOLOGY LAB Bone Marrow Core Biopsy and [...] similar to core biopsy. 12/06/2021 2:45 PM CDT [facility] PATHOLOGY LAB Flow Cytometry Summary Bone marrow, flow cytometry: - No clonal B-cell or increased blast population identified 12/06/2021 2:45 PM CDT [facility] PATHOLOGY LAB Clinical History History of cancer. 12/06/2021 2:45 PM CDT [facility] PATHOLOGY LAB Materials Received Received are 23 slide(s) and 4 blocks (A1, A2, A3, B1) labeled [id number] along with a copy of the outside pathology report. The materials originate from [address] [place] [address]. All original materials are returned to the referring institution, along with a copy of our final report. 12/06/2021 2:45 PM CDT [facility] PATHOLOGY LAB Disclaimer The performance characteristics of all immunohistochemical and indirect immunofluorescence stains (if any) cited in this report were determined by the Histopathology Laboratory of [facility]. Some of these tests were developed by [...] attending (teaching) pathologist. 12/06/2021 2:45 PM CDT [facility] PATHOLOGY LAB Embedded Images 12/06/2021 2:45 PM CDT [facility] PATHOLOGY LAB Pathology/Cytology BONE MARROW SPECIMEN / Unknown 12/01/2021 8:30 AM CDT 12/05/2021 12:38 PM CDT Miscellaneous samples (specimen) BONE MARROW SPECIMEN / Unknown 12/01/2021 8:30 AM CDT 12/05/2021 12:38 PM CDT us Yajaira Rao MD LAB - PATHOLOGY/CYTOLOGY ORDERAB LES Final Result [facility] PATHOLOGY LAB [address] [place], [place] [address] [phone] documented in this encounter Visit Diagnoses Diagnosis Illness, unspecified documented in this encounter Care Teams Photoengraving Supervisor Relationship Specialty Start Date End Date Taqueria Singleton MD [address] [place] [phone] PCP - General 06/19/21 07/10/23 Manuel Salcedo DO [address] [place] [address] PCP - General Family Medicine 07/11/23 documented as of this encounter
--- OUTSIDE RECORDS SUMMARY | 2024-12-02 09:49 | XMS_ITS | Encounter Summary ---
Author Organization [facility] Address [address] [place] [address] Care Team Providers Care Ethologist Name Role Phone Susan Montemayor MD Primary Care Provider [phone] Encounter Details Date Type Department Care Team ([facility] Contact Info) Description 08/01/1999 Outpatient Historical [facility] Internal Medicine [facility] and [address] [address] Hyun Romo MD [address] [facility] [address] [place] [address] Social History Tobacco Use Types Packs/Day Years Used Date Smoking Tobacco: Never Assessed Comments Unknown Sex and Gender Information Value Date Recorded Sex Assigned at Not on file Legal Sex Female 4:40 AM GRADE SCHOOL TEACHER Gender Identity Not on file Sexual Orientation Not on file documented as of this encounter Plan of Treatment Upcoming Encounters Date Type Department Care Team (Late Contact Info) Description 04/26/2025 10:00 AM GRADE SCHOOL TEACHER Office Visit [facility] Oncology and Hematology - [place] [address] [facility] 200 [place] [address] Samm Canas MD [address] [facility] [address] [place] [address] documented as of this encounter Visit Diagnoses Not on filedocumented in this encounter Care Teams Ethologist Relationship Specialty Start Date End Date Susan Montemayor MD [facility] [facility] [address] [place] [address] PCP - General Family Practice 07/27/24 documented as of this encounter
[2024-12-02 11:56] LABS: Alanine Aminotransferase 11 U/L (6-35); Albumin Level 3.8 g/dL (3.5-5.1); Alkaline Phosphatase 67 U/L (38-126); Anion Gap 6 mmol/L (4-12); Aspartate Amino Transferase 43 U/L (14-36); Bilirubin,Total 0.3 mg/dL (0.2-1.3); Blood Urea Nitrogen 28 mg/dL (7-17); Calcium 9.1 mg/dL (8.4-10.2); Carbon Dioxide 30 mmol/L (22-30); Chloride 103 mmol/L (98-107); Cholesterol 134 mg/dL (0-200); Estimated Glomerular Filt Rate 50; Glucose 93 mg/dL (65-110); HDL Direct 42 mg/dL; Potassium 4.1 mmol/L (3.4-5.0); Sodium 139 mmol/L (137-145); Total Protein 7.4 g/dL (6.3-8.2); Triglycerides 77 mg/dL (<150)
[2024-12-02 12:52] LABS: MALB Creatinine Ratio 11.7 mg/g (0-30)
[2024-12-02 17:49] LABS: Hemoglobin A1C 8.3 % (<5.7)
== END 2024-12-02 09:46 | disposition home or self-care (01) ==
PROVIDERS: PCP Emergency Medicine; Visit Provider Emergency Medicine
DX: E55.9 Vitamin D deficiency, unspecified (principal); E78.5 Hyperlipidemia, unspecified; E11.9 Type 2 diabetes mellitus without complications
CPT/HCPCS: 36415; 80053; 80061; 82043; 82306; 83036

== ENCOUNTER 2025-05-24 10:43 | Outpatient (CLI) | payer OTHER, SELFPAY ==
--- OUTSIDE RECORDS SUMMARY | 2016-08-16 23:00 | XMS_ITS | Encounter Summary ---
Author Organization [facility] Healthcare Address [address] [place] [address] Care Team Providers Care Print Operator Name Role Phone Rolf Kasper MD Primary Care Provider [phone] Reason for Visit * Diagnostic Imaging (Routine) - Closed Specialty Diagnoses / Procedures Referred By Contac t Referred To Contact Procedures Breast Imaging Screening Outside Reference Aft, Beverley Leung MD PhD [address] [place] [id number] Phone: tel: fax: Referral ID Status Reason Start Date Expiration Date Visits Re quested Visits Authorized [id number] Closed 07/17/2021 08/16/2022 1 1 Encounter Details Date Type Department Care Team (Late st Contact Info) Description 08/17/2016 Hospital Encounter [facility] [address] [place] [address] Social History Tobacco Use Types Packs/Day Years Used Date Smoking Tobacco: Never Passive Smoke Exposure: Never Smokeless Tobacco: Never Alcohol Use Standard Drinks/Week Comments Never 0 (1 standard drink = 0.6 oz pur e alcohol) PHQ-2 Answer Date Recorded PHQ-2 Total Score 0 03/12/2025 Social Connection and Isolation Panel Answer Date Recorded In a typical week, how many times do you talk on the phone with family, friends, or neighbors? More than three times a week 03/12/2025 How often do you get togethe r with friends or relatives? More than three times a week 03/12/2025 How often do you attend chur ch or mormon services? More than 4 times per year 03/12/2025 Do you belong to any clubs o r organizations such as pentecostalism groups, unions, fraternal or athletic groups, or school groups? Yes 03/12/2025 How often do you attend meet ings of the clubs or organizations you belong to? More than 4 times per year 03/12/2025 Are you , , di vorced, , never , or living with a partner? Never 03/12/2025 AUDIT-C Answer Date Recorded Q1: How often do you have a drink containing alc ohol? Never 03/30/2025 Average Number of Drinks Not on file 025 Q3: How often do you have si x or more drinks on one occasion? Never 03/30/2025 Overall Financial Resource Strain (CARDIA) Answe r Date Recorded How hard is it for you to pa y for the very basics like food, housing, medical care, and heating? Not hard at all 03/12/2025 Hunger Vital Sign Answer Date Recorded Within the past 12 months, y ou worried that your food would run out before you got the money to buy more. Never true 03/12/20 25 Within the past 12 months, t he food you bought just didn't last and you didn't have money to get more. Never true 03/12/2025 PRAPARE - Transportation Answer Date Re corded In the past 12 months, has l ack of transportation kept you from medical appointments or from getting medications? No 02/24 In the past 12 months, has l ack of transportation kept you from meetings, work, or from getting things needed for daily living? No 03/12/2025 Housing Stability Vital Sign Answer Rene e Recorded In the last 12 months, was t here a time when you were not able to pay the mortgage or rent on time? No 03/12/2025 In the past 12 months, how m any times have you moved where you were living? 0 03/12/2025 At any time in the [facility], were you homeless or living in a fdc (including now)? No 03/12/2025 [facility] Utilities Answer Date Recorded In the past 12 months has th e electric, gas, oil, or water [employer] threatened to shut off services in your home? No 03/12/2025 Personal Safety Answer Date Recorded Have you ever been in or are you currently in a harmful physical or emotional relationship or is someone making you feel afraid or unsafe? Denies 03/30/2025 Comments No Sex and Gender Information Value Date Recorded Sex Assigned at Not on file Legal Sex Female 11:24 PM FISH BAILER Gender Identity Female 12/31/2022 7:44 AM CDT Sexual Orientation Straight 12/31/2022 7: 44 AM CDT documented as of this encounter Plan of Treatment Not on file documented as of this encounter Procedures Procedure Name Priority Date/Time Associated Diagnosis Comments BREAST IMAGING MG SCREENING OUTSIDE REFERENCE Routine 08/17/2016 12:00 AM CDT documented in this encounter Results * Breast Imaging Screening Outside Reference (08/17/2016 12:00 AM CDT) Impressions [facility] - 07/17/2021 3:30 PM FISH BAILER These images are for Reference purposes only and have not been reviewed by [facility] Radiology. There will be no report generated by a [facility] Radiologist. Narrative [facility] - 07/17/2021 3:30 PM FISH BAILER EXAMINATION: Images For Reference Purposes Only us Beverley Riley MD PhD IMG MAMMO PROCEDURES Final Result [facility] documented in this encounter Visit Diagnoses Not on filedocumented in this encounter Care Teams Print Operator Relationship Specialty Start Date End Date Rolf Kasper MD [address] [facility] [place] [address] PCP - General 06/29/14 02/20/17 documented as of this encounter
--- OUTSIDE RECORDS SUMMARY | 2017-11-07 23:00 | XMS_ITS | Encounter Summary ---
Author Organization [facility] Healthcare Address [address] [place] [address] Care Team Providers Care Linen Tech Name Role Phone Taqueria Singleton MD Primary Care Provider [phone] Reason for Visit * Diagnostic Imaging (Routine) - Closed Specialty Diagnoses / Procedures Referred By Contac t Referred To Contact Procedures Breast Imaging Screening Outside Reference Aft, Beverley Leung MD PhD [address] [place] [address] Phone: tel: fax: Referral ID Status Reason Start Date Expiration Date Visits Re quested Visits Authorized [id number] Closed 07/17/2021 08/16/2022 1 1 Encounter Details Date Type Department Care Team (Late st Contact Info) Description 11/08/2017 Hospital Encounter [facility] [address] [place], [place] [id number] Social History Tobacco Use Types Packs/Day Years [...] often do you attend chur ch or episcopal services? More than 4 times per year 03/12/2025 Do you belong to any clubs o r organizations such as religious groups, unions, fraternal or athletic groups, or [...] any time in the past 12 m ont, were you homeless or living in a group home (including now)? No 03/12/2025 [facility] Utilities Answer Date Recorded In the past 12 months has th e electric, gas, oil, or water company threatened to shut off services in your home? No 03/12/2025 Personal Safety Answer Date Recorded Have you ever been in or are you currently in a harmful physical or emotional relationship or is someone making you feel afraid or unsafe? Denies 03/30/2025 Comments No Sex and Gender Information Value Date Recorded Sex Assigned at Not on file Legal Sex Female 11:24 PM SCHOOL AGE LEAD TEACHER Gender Identity Female 12/31/2022 7:44 AM CDT Sexual Orientation Straight 12/31/2022 7: 44 AM CDT documented as of this encounter Plan of Treatment Not on file documented as of this encounter Procedures Procedure Name Priority Date/Time Associated Diagnosis Comments BREAST IMAGING MG SCREENING OUTSIDE REFERENCE Routine 11/08/2017 12:00 AM CDT documented in this encounter Results * Breast Imaging Screening Outside Reference (11/08/2017 12:00 AM CDT) Impressions [facility] - 07/17/2021 3:30 PM SCHOOL AGE LEAD TEACHER These images are for Reference purposes only and have not been reviewed by [facility] Radiology. There will be no report generated by a [facility] Radiologist. Narrative [facility] - 07/17/2021 3:30 PM SCHOOL AGE LEAD TEACHER EXAMINATION: Images For Reference Purposes Only us Beverley Riley MD PhD IMG MAMMO PROCEDURES Final Result [facility] documented in this encounter Visit Diagnoses Not on filedocumented in this encounter Care Teams Linen Tech Relationship Specialty Start Date End Date Taqueria Singleton MD [address] [place] [address] PCP - General 03/06/17 03/06/22 documented as of this encounter
--- OUTSIDE RECORDS SUMMARY | 2018-11-10 23:00 | XMS_ITS | Encounter Summary ---
Author Organization [facility] Healthcare Address [address] [place] [address] Care Team Providers Care Agricultural Scientist Name Role Phone Taqueria Singleton MD Primary Care Provider [phone] [phone] Reason for Visit * Diagnostic Imaging (Routine) - Closed Specialty Diagnoses / Procedures Referred By Contac t Referred To Contact Procedures Breast Imaging Screening Outside Reference Aft, Beverley Leung MD PhD [address] [place] [address] Phone: tel: fax: Referral ID Status Reason Start Date Expiration Date Visits Re quested Visits Authorized [id number] Closed 07/17/2021 08/16/2022 1 1 Encounter Details Date Type Department Care Team (Late st Contact Info) Description 11/11/2018 Hospital Encounter [facility] [address] [place], [place] [id number] Social History Tobacco Use Types Packs/Day Years [...] often do you attend chur ch or christianity services? More than 4 times per year 03/12/2025 Do you belong to any clubs o r organizations such as oriental orthodox groups, unions, fraternal or athletic groups, or [...] were you homeless or living in a custodial (including now)? No 03/12/2025 [facility] Utilities Answer Date Recorded In the past [...] file Legal Sex Female 11:24 PM FISH BUTCHER Gender Identity Female 12/31/2022 7:44 AM CDT Sexual Orientation Straight 12/31/2022 7: 44 AM CDT documented as of this encounter Plan of Treatment Not on file documented as of this encounter Procedures Procedure Name Priority Date/Time Associated Diagnosis Comments BREAST IMAGING MG SCREENING OUTSIDE REFERENCE Routine 11/11/2018 12:00 AM CDT documented in this encounter Results * Breast Imaging Screening Outside Reference (11/11/2018 12:00 AM CDT) Impressions [facility] - 07/17/2021 3:31 PM FISH BUTCHER These images are for Reference purposes only and have not been reviewed by [facility] Radiology. There will be no report generated by a [facility] Radiologist. Narrative [facility] - 07/17/2021 3:31 PM FISH BUTCHER EXAMINATION: Images For Reference Purposes Only us Beverley Riley MD PhD IMG MAMMO PROCEDURES Final Result [facility] documented in this encounter Visit Diagnoses Not on filedocumented in this encounter Care Teams Agricultural Scientist Relationship Specialty Start Date End Date Taqueria Singleton MD [address] [place] [address] PCP - General 03/06/17 03/06/22 documented as of this encounter
--- OUTSIDE RECORDS SUMMARY | 2020-05-03 | XMS_ITS | Encounter Summary ---
Author Organization [facility] Healthcare Address [address] [place] [address] Care Team Providers Care Pharmacy Aide Name Role Phone Taqueria Singleton MD Primary Care Provider [phone] [phone] Reason for Visit * Diagnostic Imaging (Routine) - Closed Specialty Diagnoses / Procedures Referred By Contac t Referred To Contact Procedures Breast Imaging Screening Outside Reference Aft, Beverley Leung MD PhD [address] [place] [address] Phone: tel: fax: Referral ID Status Reason Start Date Expiration Date Visits Re quested Visits Authorized [id number] Closed 07/17/2021 08/16/2022 1 1 Encounter Details Date Type Department Care Team (Late st Contact Info) Description 05/03/2020 Hospital Encounter [facility]iology [facility] [address] [place], [place] [id number] Social History Tobacco Use Types Packs/Day Years [...] often do you attend chur ch or oriental orthodox services? More than 4 times per year 03/12/2025 Do you belong to any clubs o r organizations such as episcopalian groups, unions, fraternal or athletic groups, or [...] were you homeless or living in a prison (including now)? No 03/12/2025 [facility] Utilities Answer Date Recorded In the [...] on file Legal Sex Female 11:24 PM TALENT DEVELOPMENT CONSULTANT Gender Identity Female 12/31/2022 7:44 AM CDT Sexual Orientation Straight 12/31/2022 7: 44 AM CDT documented as of this encounter Plan of Treatment Not on file documented as of this encounter Procedures Procedure Name Priority Date/Time Associated Diagnosis Comments BREAST IMAGING MG SCREENING OUTSIDE REFERENCE Routine 05/03/2020 12:00 AM TALENT DEVELOPMENT CONSULTANT documented in this encounter Results * Breast Imaging Screening Outside Reference (05/03/2020 12:00 AM TALENT DEVELOPMENT CONSULTANT) Impressions [facility] - 07/17/2021 3:31 PM TALENT DEVELOPMENT CONSULTANT These images are for Reference purposes only and have not been reviewed by [facility] Radiology. There will be no report generated by a [facility] Radiologist. Narrative [facility] - 07/17/2021 3:31 PM TALENT DEVELOPMENT CONSULTANT EXAMINATION: Images For Reference Purposes Only us Beverley Riley MD PhD IMG MAMMO PROCEDURES Final Result [facility] documented in this encounter Visit Diagnoses Not on filedocumented in this encounter Care Teams Pharmacy Aide Relationship Specialty Start Date End Date Taqueria Singleton MD [address] [place] [address] PCP - General 03/06/17 03/06/22 documented as of this encounter
--- OUTSIDE RECORDS SUMMARY | 2025-05-24 11:15 | XMS_ITS | Encounter Summary ---
Author Organization [facility] Address [address] [place] [address] Care Team Providers Care Performing Arts Technicians Name Role Phone Susan Montemayor MD Primary Care Provider Encounter Details Date Type Department Care Team (Late Contact Info) Description 09/05/[address] [facility] Internal Medicine [facility] and [address] [place] [address] Jaelyn Mayo MD [address] [facility] [address] [place] [address] Social History Tobacco Use Types Packs/Day Years Used Date Smoking Tobacco: Never Assessed Comments Unknown Sex and Gender Information Value Date Recorded Sex Assigned at Not on file Legal Sex Female 4:40 AM SUBASSEMBLER Gender Identity Not on file Sexual Orientation Not on file documented as of this encounter Plan of Treatment Upcoming Encounters Date Type Department Care Team (Late Contact Info) Description 07/23/2025 9:15 AM SUBASSEMBLER Office Visit [facility] Oncology and Hematology - [place] [address] [place] [address] Samm Canas MD [address] [facility] [address] [place] [address] documented as of this encounter Visit Diagnoses Not on filedocumented in this encounter Care Teams Performing Arts Technicians Relationship Specialty Start Date End Date Susan Montemayor MD [facility]7 [facility] [address] [place] [phone] PCP - General Family Practice 07/27/24 documented as of this encounter
--- OUTSIDE RECORDS SUMMARY | 2025-05-24 11:15 | XMS_ITS | Encounter Summary ---
Author Organization [facility] Address [address] [place] [address] Care Team Providers Care Superintendent Maintenance Airports Name Role Phone Susan Montemayor MD Primary Care Provider Encounter Details Date Type Department Care Team (Late Contact Info) Description 09/29/1999 Outpatient Historical [facility] Internal Medicine [facility] and [address] [place] [address] Jaelyn Mayo MD [address] [facility] [address] [place] [address] Social History Tobacco Use Types Packs/Day Years Used Date Smoking Tobacco: Never Assessed Comments Unknown Sex and Gender Information Value Date Recorded Sex Assigned at Not on file Legal Sex Female 4:40 AM HAY SORTER Gender Identity Not on file Sexual Orientation Not on file documented as of this encounter Plan of Treatment Upcoming Encounters Date Type Department Care Team (Late Contact Info) Description 07/23/2025 9:15 AM HAY SORTER Office Visit [facility] Oncology and Hematology - [place] [address] [place] [address] Samm Canas MD [address] [facility] [address] [place] [address] documented as of this encounter Visit Diagnoses Not on filedocumented in this encounter Care Teams Superintendent Maintenance Airports Relationship Specialty Start Date End Date Susan Montemayor MD [facility]7 [facility] [address] [place] [phone] PCP - General Family Practice 07/27/24 documented as of this encounter
--- OUTSIDE RECORDS SUMMARY | 2025-05-24 11:15 | XMS_ITS | Clinical Summary ---
Author Organization [facility] Address [address] [facility] [place] [address] Care Team Providers Care Bisque Ware Dipper Name Role Phone ShelbylucianManuel DO Primary Care Provider [phone] [facility],non-owned Affiliates and Associated Physician Practices is amultiple site organization consisting of ambulatory clinics and hospital sitesin [place], [place], [place] and [place]. This disclosure is being madepursuant to the Care Everywhere program and may not contain all information available regarding this patient. Last updated 18.[facility] Allergies Active Allergy Reactions Criticality Noted Date [...] (07/11/2023): Added automatically from request for surgery [id number] Hyperlipidemia 11/14/2021 07/11/2023 Chronic anemia 11/10/2021 07/11/2023 [...] selective neck dissection levels 1,2, and 3 ([place] 10/03/2015) 2. Diagnosis. 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 Transoral closure of left orocutaneous fistula ([place] 10/11/2015) Irrigation and washout of left neck wound ([place] 10/11/2015) Unknown and unspecified causes of morbidity [...] on file Legal Sex Female 6:08 AM CHIEF MERCHANDISING OFFICER Gender Identity Not on file Sexual Orientation Not on file Last Filed Vital Signs Vital Sign Reading Time Taken Comments Blood Pressure 130/70 07/11/2023 1:19 PM CHIEF MERCHANDISING OFFICER Pulse - - Temperature - - Respiratory Rate - - Oxygen Saturation - - Inhaled Oxygen Concentration - - Weight 79.8 kg (176 lb) 07/11/2023 1:19 PM CHIEF MERCHANDISING OFFICER Height 170.2 cm (5' 7) 07/11/2023 1:19 PM CHIEF MERCHANDISING OFFICER Body Mass Index 27.57 07/11/2023 1:19 PM CHIEF MERCHANDISING OFFICER Plan of Treatment Health Maintenance Due Date [...] EXAM WITH MONOFILAMENT 07/11/2023 DIABETES-HGB A1C 07/11/2023 DEPRESSION SCREENING 05/27/2024 DIABETES - URINE PROTEIN SCREENING 05/27/2024 COVID-19 VACCINE (2024- season) 2025 03/05/2023, 03/10/2022, 09/13/2021, Additional history exists INFLUENZA VACCINE (#1) 2025 , 03/10/2022, 02/22/2021, Additional history exists BONE DENSITY [...] Insurance [employer] MED[employer]ARE E[employer]ENCE MEDICARE Care Teams Bisque Ware Dipper Relationship Specialty Start Date End Date Manuel Salcedo DO [address] [place] [phone] PCP - General Family Medicine 07/11/23
--- OUTSIDE RECORDS SUMMARY | 2025-05-24 11:15 | XMS_ITS ---
Author Organization [facility] Address [address] [place] [address] Care Team Providers Care Billboard Erector Name Role Phone Melissa Jeff NP Unavailable [phone] Samm Canas MD Unavailable [phone] Dandre Garrido MD Unavailable Franci Gilliam PhD Unavailable [phone] Linda Pichardo MD Unavailable [phone] Shaun Farias MD Primary Care Provide r Medina MartínezW Unavailable Unavaila ble Jame Godfrey MD PhD Unavailable Orlando Sigala MD Unavailable [phone] Loreta Mckenna MD Unavailable [phone] Active Problems Problem Noted Date Diagnosed Date Prophylactic use of tamoxifen 10/16/2023 Encounter for monitoring tamoxifen therapy 10/15 History of breast cancer 09/17/2022 Hyperlipidemia 11/14/2021 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 Diagnosis. 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 Diagnosis. 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 Transoral closure of left orocutaneous fistula ([place] 10/11/2015) Irrigation and washout of left neck wound ([place] 10/11/2015) Seasonal allergy 06/08/2014 Overview (08/31/2016): Seasonal [...] Date Treatment Medications Discontinue Reason Plan Provider [id number] - [facility] - SURGERY - CE/BZA / PLACEBO 08/03/2021 08/06/2023 INV-[id number] conj estrogens 0.45 MG-bazedoxifene 20 MG/placebo (2016-10-188/NU 15B06) Automatic discontinuation of dormant plans AftBeverley MD PhD Radiation Treatments (No Episode) * Course C1 R BREAST 202210/10/2022 - 10/16/2022 Treatment Period Energy Fraction Dose Fractions Total Dose Plans Planned R BREAST 10/10/2022 - 10/16/2022 520 5 / 2,600 Reference Points Delivered [place] dpv 10/10/2022 - 10/16/2022 2,600 Lifetime Dose Tracking * Chemical Lifetime Dose Automatic Entry Manual Entr y DLP 332 mGycm 332 mGycm 0 mGycm Resolved Problems Problem Noted Date Diagnosed Date Resolved Date Tongue cancer 03/18/2025 04/14/2025 Overview (04/14/2025): DIAGNOSIS: Left oral tongue cancer PROCEDURE PERFORMED: ([facility]ovon 03/30/25) Left partial glossectomy Intraductal carcinoma and lo bular carcinoma in situ (LCIS) of right breast 10/16/2023 5 Encounter to discuss treatment options 11/14/2021 10/16/2023
--- OUTSIDE RECORDS SUMMARY | 2025-05-24 11:15 | XMS_ITS | Encounter Summary ---
Author Organization [facility] Address [address] [place] [address] Care Team Providers Care Washcloth Folder Name Role Phone Susan Montemayor MD Primary Care Provider Encounter Details Date Type Department Care Team (Late Contact Info) Description 09/25/1999 Outpatient Historical [facility] Internal Medicine [facility] and [address] [place] [address] Jaelyn Mayo MD [address] [facility] [address] [place] [address] Social History Tobacco Use Types Packs/Day Years Used Date Smoking Tobacco: Never Assessed Comments Unknown Sex and Gender Information Value Date Recorded Sex Assigned at Not on file Legal Sex Female 4:40 AM CLINICAL PHARMACIST Gender Identity Not on file Sexual Orientation Not on file documented as of this encounter Plan of Treatment Upcoming Encounters Date Type Department Care Team (Late Contact Info) Description 07/23/2025 9:15 AM CLINICAL PHARMACIST Office Visit [facility] Oncology and Hematology - [place] [address] [place] [address] Samm Canas MD [address] [facility] [address] [place] [address] documented as of this encounter Visit Diagnoses Not on filedocumented in this encounter Care Teams Washcloth Folder Relationship Specialty Start Date End Date Susan Montemayor MD [facility] [address] [place] [phone] PCP - General Family Practice 07/27/24 documented as of this encounter
--- OUTSIDE RECORDS SUMMARY | 2025-05-24 11:15 | XMS_ITS | Encounter Summary ---
Author Organization [facility] Address [address] [place] [address] Care Team Providers Care Swimming Pool Service Technician Name Role Phone Susan Montemayor MD Primary Care Provider [phone] Encounter Details Date Type Department Care Team (Late Contact Info) Description 04/21/1999 Outpatient Historical [facility] Internal Medicine [facility] and [address] [place] [address] Hyun Romo MD [address] [address] Social History Tobacco Use Types Packs/Day Years Used Date Smoking Tobacco: Never Assessed Comments Unknown Sex and Gender Information Value Date Recorded Sex Assigned at Not on file Legal Sex Female 4:40 AM CATALOG LIBRARIAN Gender Identity Not on file Sexual Orientation Not on file documented as of this encounter Plan of Treatment Upcoming Encounters Date Type Department Care Team (Late st Contact Info) Description 07/23/2025 9:15 AM CATALOG LIBRARIAN Office Visit [facility] Oncology and Hematology - [place] [address] [facility] [address] [place] [address] Samm Canas MD [address] [facility] [address] [place] [address] documented as of this encounter Visit Diagnoses Not on filedocumented in this encounter Care Teams Swimming Pool Service Technician Relationship Specialty Start Date End Date Susan Montemayor MD [facility] [address] [place] [address] PCP - General Family Practice 07/27/24 documented as of this encounter
--- OUTSIDE RECORDS SUMMARY | 2025-05-24 11:15 | XMS_ITS | Clinical Summary ---
Author Organization [facility] Address [address] [place] [address] Care Team Providers Care Investigator Vice Name Role Phone Susan Montemayor MD Primary Care Provider Allergies Active Allergy Reactions Criticality Noted Date [...] Encounters Date Type Department Care Team Description 05/18/2025 External Device Data STL ABSTRACTION Provider, Abstract 04/21/2025 Telephone [facility] Oncology and Hematology - [place] [address] [place] [address] Samm Canas MD labs for appt 03/24/2025 External Device Data ST[place] ABSTRACTION Provider, Abstract 03/23/2025 External Device Data [place] ABSTRACTION Provider, Abstract 03/16/2025 External Device Data [place] ABSTRACTION Provider, Abstract [...] on file Legal Sex Female 4:40 AM WATERPROOFING MACHINE OPERATOR Gender Identity Not on file Sexual Orientation Not on file Occupation Industry Job Start Date Job End Date Not on file Not on file Not on file Not on file Last Filed Vital Signs Vital Sign Reading Time Taken Comments Blood Pressure 115/57 07/27/2024 11:22 AM WATERPROOFING MACHINE OPERATOR Pulse 66 07/27/2024 11:22 AM WATERPROOFING MACHINE OPERATOR Temperature 35.9 C (96.7 F) 07/27/2024 11:22 AM WATERPROOFING MACHINE OPERATOR Respiratory Rate 15 07/27/2024 11:22 AM WATERPROOFING MACHINE OPERATOR Oxygen Saturation 98% 07/27/2024 11:22 AM WATERPROOFING MACHINE OPERATOR Inhaled Oxygen Concentration - - Weight 79.2 kg (174 lb 9.6 oz) 07/27/2024 11:22 AM WATERPROOFING MACHINE OPERATOR Height 170.2 cm (5' 7) 12/12/2021 8:38 AM CDT Body Mass Index 27.35 12/12/2021 8:38 AM CDT Plan of Treatment Upcoming Encounters Date Type Department Care Team (Late st Contact Info) Description 07/23/2025 9:15 AM WATERPROOFING MACHINE OPERATOR Office Visit [facility] Oncology and Hematology - [place] [address] [place] [address] Samm Canas MD [address] [facility] [address] [place] [address] Health Maintenance Due Date Last Done Comments DIABETES ANNUAL FOOT EXAM 1964 DIABETES MICROALBUMIN ANNUAL SCREEN 1964 LDL CHOLESTEROL ANNUAL 1964 DIABETES ANNUAL RETINAL EXAM 05/04/202001/2019, 03/12/2019, 03/12/2019, Additional history exists RSV VACCINE (60+ or ) (1 - 1-dose 75+ series) 2021 INFLUENZA VACCINE (#1) 2024 4, 03/10/2022, 02/22/2021, Additional history exists COVID-19 Vaccine ( - 2024-2 6 season) 2025 03/05/2023, 03/10/2022, 09/13/2021 DIABETES HBA1C Q 6 MONTHS 09/23/20252024, 12/31/2018, 07/03/2018, Additional history exists OSTEOPOROSIS SCREENING 09/28/2027 3, 09/27/2022, 08/17/2016, Additional history exists DTAP/TDAP/TD VACCINES (2 - T d or Tdap) 04/26/2032 04/26/2022 COLORECTAL SCREENING Discontinued 03/06/2017 Colorectal Cancer Screening Discontinued PNEUMOCOCCAL VACCINE 50+ YEARS Completed 0 02/19/2019, 05/27/2015, 05/27/2014 ZOSTER VACCINE Completed 05/13/2020, 12/2019, 09/13/2014 FIT-DNA Q 3 years Discontinued FIT/FOBT Q 1 year Discontinued Flex Sig/CT Colonography Q 5 years Discontinued Insurance [facility] Care Teams Investigator Vice Relationship Specialty Start Date End Date Susan Montemayor MD [facility] [facility] [address] [place] [address] PCP - General Family Practice 07/27/24
--- OUTSIDE RECORDS SUMMARY | 2025-05-24 11:15 | XMS_ITS | Encounter Summary ---
Author Organization [facility] Address [address] [place] [address] Care Team Providers Care Regional Rehabilitation Director Name Role Phone Susan Montemayor MD Primary Care Provider [phone] Encounter Details Date Type Department Care Team (Late Contact Info) Description 06/20/1999 Outpatient Historical [facility] Internal Medicine [facility] [address] and [address] [place] [address] Hyun Romo MD [address] [address] Social History Tobacco Use Types Packs/Day Years Used Date Smoking Tobacco: Never Assessed Comments Unknown Sex and Gender Information Value Date Recorded Sex Assigned at Not on file Legal Sex Female 4:40 AM PROPERTY SUPERVISOR Gender Identity Not on file Sexual Orientation Not on file documented as of this encounter Plan of Treatment Upcoming Encounters Date Type Department Care Team (Late st Contact Info) Description 07/23/2025 9:15 AM PROPERTY SUPERVISOR Office Visit [facility] Oncology and Hematology - [place] [address] [facility] [address] [place] [address] Samm Canas MD [address] [facility] [address] [place] [address] documented as of this encounter Visit Diagnoses Not on filedocumented in this encounter Care Teams Regional Rehabilitation Director Relationship Specialty Start Date End Date Susan Montemyaor MD [facility]7 [facility] [address] [place] [address] PCP - General Family Practice 07/27/24 documented as of this encounter
--- OUTSIDE RECORDS SUMMARY | 2025-05-24 11:15 | XMS_ITS | Encounter Summary ---
Author Organization [facility] Address [address] [place] [address] Care Team Providers Care Brilliandeer Lopper Name Role Phone Susan Montemayor MD Primary Care Provider [phone] Encounter Details Date Type Department Care Team (Late st Contact Info) Description 09/29/1999 Outpatient Historical [facility] Internal Medicine [facility] and [address] [address] TooDouglas silvestre Social History Tobacco Use Types Packs/Day Years Used Date Smoking Tobacco: Never Assessed Comments Unknown Sex and Gender Information Value Date Recorded Sex Assigned at Not on file Legal Sex Female 4:40 AM GRIDDLE COOK Gender Identity Not on file Sexual Orientation Not on file documented as of this encounter Plan of Treatment Upcoming Encounters Date Type Department Care Team (Late st Contact Info) Description 07/23/2025 9:15 AM GRIDDLE COOK Office Visit [facility] Oncology and Hematology - [place] [address] [facility] [address] [place] [address] Samm Canas MD [address] [facility] [address] [place] [address] documented as of this encounter Visit Diagnoses Not on filedocumented in this encounter Care Teams Brilliandeer Lopper Relationship Specialty Start Date End Date Susan Montemayor MD [address] [place] [address] [address] [place] [address] PCP - General Family Practice 07/27/24 documented as of this encounter
--- OUTSIDE RECORDS SUMMARY | 2025-05-24 11:15 | XMS_ITS | Encounter Summary ---
Author Organization [facility] Address [address] [place] [address] Care Team Providers Care Prints And Drawings Curator Name Role Phone Taqueria Singleton MD Primary Care Provider [phone] Manuel Salcedo DO Primary Care Provider [phone] Encounter Details Date Type Department Care Team (Late st Contact Info) Description 12/05/2021 Lab Requisition [facility] Care Pathology Lab [address] [place] [address] Yajaira Rao MD [facility] [address] [address] Illness, unspecified Social History Tobacco Use Types Packs/Day Years Used Date Smoking Tobacco: Never Assessed Comments Unknown Sex and Gender Information Value Date Recorded Sex Assigned at Not on file Legal Sex Female 6:08 AM FRONT END WEB DEVELOPER Gender Identity Not on file Sexual Orientation [...] Report Bone Marrow Patholog y Report Case: [id number] Authorizing Provider: Yajaira Rao MD Collected: 12/01/2021 08:30 AM Ordering Location: [facility] Pathology Lab Received: 12/05/2021 12:38 PM Pathologist: Bhavik Avilez MD Specimens: A) - Bone Marrow Clot B) - Bone Marrow Core 12/06/2021 2:45 PM CDT [facility] PATHOLOGY LAB Final Diagnosis Bone marrow, aspirate, clot section, and core biopsy: - Slightly hypocellular marrow with maturing trilineage hematopoiesis. - No evidence of lymphoma or high-grade myeloid neoplasm. - See description. Peripheral blood smear: - Normocytic anemia. - See description. 12/06/2021 2:45 PM CDT [facility] PATHOLOGY LAB at 1445 CDT AP Comment No overt dyspoiesis is seen in this case. Immunohistochemistry is performed to assess staining cells in an architectural context. CD34 and CD117 are negative for increased blasts. CD61 highlights normal numbers of megakaryocytes. Pancytokeratin is negative for metastatic carcinoma. 12/06/2021 2:45 PM CDT [facility]OLOGY [facility] Peripheral Smear Description RBC: normocytic anemia. WBC: normal in number and morphology. Platelets: normal in number and morphology. 12/06/2021 2:45 PM CDT [facility] PATHOLOGY LAB Bone Marrow Aspirate Differential count (200 cells): normal differential count. Specimen quality: some hemodilution. Spicules: none seen, but megakaryocytes are present. Trilineage Hematopoiesis: present. Myeloid:Erythroid ratio: normal. Myeloid Maturation: normal. Erythroid Maturation: normal. Megakaryocyte morphology: small. 12/06/2021 2:45 PM CDT [facility] PATH[facility]Y [facility] Bone Marrow Core Biopsy [...] core biopsy. 12/06/2021 2:45 PM CDT [facility] PATH[facility]Y LAB Flow Cytometry Summary Bone marrow, flow cytometry: - No clonal B-cell or increased blast population identified 12/06/2021 2:45 PM CDT [facility] PATHOLOGY [facility] Clinical History History of cancer. 12/06/2021 2:45 PM CDT [facility] PATH[facility]Y LAB Materials Received Received are 23 slide(s) and 4 blocks (A1, A2, A3, B1) labeled [id number] along with a copy of the outside pathology report. The materials originate from [address] [place] [address]. All original materials are returned to the referring institution, along with a copy of our final report. 12/06/2021 2:45 PM CDT [facility] PATH[facility]Y [facility] Disclaimer The performance characteristics of all immunohistochemical and indirect immunofluorescence stains (if any) cited in this report were determined by the Histopathology Laboratory of [facility]. Some of these tests were developed by [...] (teaching) pathologist. 12/06/2021 2:45 PM CDT [facility] PATHOLOGY [facility] Embedded Images 12/06/2021 2:45 PM CDT [facility]Y LAB Pathology/Cytology BONE MARROW SPECIMEN / Unknown 12/01/2021 8:30 AM CDT 12/05/2021 12:38 PM CDT Miscellaneous samples (specimen) BONE MARROW SPECIMEN / Unknown 12/01/2021 8:30 AM CDT 12/05/2021 12:38 PM CDT us Yajaira Rao MD LAB - PATHOLOGY/CYTOLOGY ORDERAB LES Final Result [facility] PATHOLOGY LAB [address] [place], [place] [address] [phone] documented in this encounter Visit Diagnoses Diagnosis Illness, unspecified documented in this encounter Care Teams Prints And Drawings Curator Relationship Specialty Start Date End Date Taqueria Singleton MD [address] [place] [phone] PCP - General 06/19/21 07/10/23 Manuel Salcedo DO [address] [place] [address] PCP - General Family Medicine 07/11/23 documented as of this encounter
--- OUTSIDE RECORDS SUMMARY | 2025-05-24 11:15 | XMS_ITS | Encounter Summary ---
Author Organization [facility] Address [address] [place] [address] Care Team Providers Care Voip Engineer Name Role Phone Susan Montemayor MD Primary Care Provider Encounter Details Date Type Department Care Team (Late Contact Info) Description 07/04/1999 Outpatient Historical [facility] Internal Medicine [address] [place] [address] Hyun Romo MD [address] [address] Social History Tobacco Use Types Packs/Day Years Used Date Smoking Tobacco: Never Assessed Comments Unknown Sex and Gender Information Value Date Recorded Sex Assigned at Not on file Legal Sex Female 4:40 AM NETWORKS COMPUTER CONSULTANT Gender Identity Not on file Sexual Orientation Not on file documented as of this encounter Plan of Treatment Upcoming Encounters Date Type Department Care Team (Late st Contact Info) Description 07/23/2025 9:15 AM NETWORKS COMPUTER CONSULTANT Office Visit [facility] Oncology and Hematology - [place] [address] [facility] [address] [place] [address] Samm Canas MD [address] [facility] [address] [place] [address] documented as of this encounter Visit Diagnoses Not on filedocumented in this encounter Care Teams Voip Engineer Relationship Specialty Start Date End Date Susan Montemayor MD [facility] [address] [place] [address] PCP - General Family Practice 07/27/24 documented as of this encounter
--- OUTSIDE RECORDS SUMMARY | 2025-05-24 11:15 | XMS_ITS | Encounter Summary ---
Author Organization [facility] Address [address] [facility] [place] [address] Phone Care Team Providers Care Counselor Nurses' Association Name Role Phone Taqueria Singleton MD Primary Care Provider [phone] Manuel Salcedo DO Primary Care Provider [phone] Melissa Jeff NP Unavailable [phone] Lola Israel MD Unavailable [phone] Samm Canas MD Unavailable [phone] Dandre Garrido MD Unavailable Franci Gilliam PhD Unavailable [phone] Linda Pichardo MD Unavailable [phone] Shaun Farias MD Primary Care Provide r Medina Martínez LCSW Unavailable Unavaila Renee Fox RN Unavailable Unav domable Jame Godfrey MD PhD Unavailable Orlando Sigala MD Unavailable [phone] Loreta Mckenna MD Unavailable [phone] Encounter Details Date Type Department Care Team (Late st Contact Info) Description 07/05/2021 Telephone [facility] Surgery [facility] 5th [place] [address] [place] [address] Gabriela Ng RN Social History Tobacco Use Types Packs/Day Years Used Date Smoking Tobacco: Never Alcohol Use Standard Drinks/Week Comments No 0 (1 standard drink = 0.6 oz pur e alcohol) Comments Unknown Sex and Gender Information Value Date Recorded Sex Assigned at Not on file Legal Sex Female 11:24 PM SOLUTION MANAGER Gender Identity Female 12/31/2022 7:44 AM CDT Sexual Orientation Straight 12/31/2022 7: 44 AM CDT documented as of this encounter Plan of Treatment Not on file documented as of this encounter Visit Diagnoses Not on filedocumented in this encounter Care Teams Counselor Nurses' Association Relationship Specialty Start Date End Date Taqueria Singleton MD [address] [place] [address] PCP - General 03/06/17 03/06/22 Manuel Salcedo DO [address] [place] [address] PCP - General Family Medicine 03/07/22 12/01/24 Shaun Farias MD [address] [place] [address] PCP - General Emergency Medicine 12/02/24 Melissa Jeff NP [address] [address] Nurse Practitioner Nurse Practitioner 09/12/22 Lola Israel MD [address] [address] Surgeon Surgical Oncology 09/12/22 02/04/23 Samm Canas MD [address] [address] Referring Physician Hematology 09/12/22 Dandre Garrido MD [address] [place] [address] Radiation Oncologist Radiation Oncology 09/27/22 Franci Gilliam, PhD [address] [place] [address] Nurse Practitioner Radiation Oncology 10/23/22 Linda Pichardo MD [address] [place] [address] Surgeon Breast Surgery 02/05/23 Medina Martínez, WAREHOUSE EXAMINER Senior Drafter 03/12/25 Renee Leiva, RN Nurse Navigator 03/12/25 05/06/25 Jame Godfrey MD PhD [address] [facility] MEDICAL ONCOLOGY, [address] [address] Consulting Physician Medical Oncology 03/12/25 Orlando Sigala MD [address] DEPT OTOLARYNGOLOGY, [address] [address] Consulting Physician Otolaryngology 03/12/25 Loreta Mckenna MD [address] [place] [address] Radiation Oncologist Radiation Oncology 03/12/25 documented as of this encounter
--- OUTSIDE RECORDS SUMMARY | 2025-05-24 11:15 | XMS_ITS | Encounter Summary ---
Author Organization [facility] Address [address] [place] [address] Care Team Providers Care Software Testing Specialist Name Role Phone Susan Montemayor MD Primary Care Provider Encounter Details Date Type Department Care Team (Late Contact Info) Description 08/15/1999 Outpatient Historical [facility] Internal Medicine [facility] and [address] [place] [address] Hyun Romo MD [address] [address] Social History Tobacco Use Types Packs/Day Years Used Date Smoking Tobacco: Never Assessed Comments Unknown Sex and Gender Information Value Date Recorded Sex Assigned at Not on file Legal Sex Female 4:40 AM MANAGER VOICE Gender Identity Not on file Sexual Orientation Not on file documented as of this encounter Plan of Treatment Upcoming Encounters Date Type Department Care Team (Late st Contact Info) Description 07/23/2025 9:15 AM MANAGER VOICE Office Visit [facility] Oncology and Hematology - [place] [address] [facility] 200 [place] [address] Samm Canas MD [address] [facility] [address] [place] [address] documented as of this encounter Visit Diagnoses Not on filedocumented in this encounter Care Teams Software Testing Specialist Relationship Specialty Start Date End Date Susan Montemayor MD [facility]7 [facility] 200 [place] [address] PCP - General Family Practice 07/27/24 documented as of this encounter
--- OUTSIDE RECORDS SUMMARY | 2025-05-24 11:15 | XMS_ITS | Encounter Summary ---
Author Organization [facility] Address [address] [place] [address] Care Team Providers Care Logging Truck Driver Name Role Phone Susan Montemayor MD Primary Care Provider Encounter Details Date Type Department Care Team (Late Contact Info) Description 09/26/1999 Outpatient Historical [facility] Internal Medicine [facility] and [address] [place] [address] Jaelyn Mayo MD [address] [facility] [address] [place] [address] Social History Tobacco Use Types Packs/Day Years Used Date Smoking Tobacco: Never Assessed Comments Unknown Sex and Gender Information Value Date Recorded Sex Assigned at Not on file Legal Sex Female 4:40 AM CHANGE RELEASE MANAGER Gender Identity Not on file Sexual Orientation Not on file documented as of this encounter Plan of Treatment Upcoming Encounters Date Type Department Care Team (Late Contact Info) Description 07/23/2025 9:15 AM CHANGE RELEASE MANAGER Office Visit [facility] Oncology and Hematology - [place] [address] [place] [address] Samm Canas MD [address] [facility] [address] [place] [address] documented as of this encounter Visit Diagnoses Not on filedocumented in this encounter Care Teams Logging Truck Driver Relationship Specialty Start Date End Date Susan Montemayor MD [facility]7 [facility] [address] [place] [phone] PCP - General Family Practice 07/27/24 documented as of this encounter
--- OUTSIDE RECORDS SUMMARY | 2025-05-24 11:15 | XMS_ITS | Encounter Summary ---
Author Organization [facility] Address [address] [place] [address] Care Team Providers Care Lumber Carrier Operator Name Role Phone Susan Montemayor MD Primary Care Provider Encounter Details Date Type Department Care Team (Late Contact Info) Description 07/18/1999 Outpatient Historical [facility] Internal Medicine [facility] and [address] [place] [address] Hyun Romo MD [address] [address] Social History Tobacco Use Types Packs/Day Years Used Date Smoking Tobacco: Never Assessed Comments Unknown Sex and Gender Information Value Date Recorded Sex Assigned at Not on file Legal Sex Female 4:40 AM MANAGER PACKAGE Gender Identity Not on file Sexual Orientation Not on file documented as of this encounter Plan of Treatment Upcoming Encounters Date Type Department Care Team (Late st Contact Info) Description 07/23/2025 9:15 AM MANAGER PACKAGE Office Visit [facility] Oncology and Hematology - [place] [address] [facility] 200 [place] [address] Samm Cansa MD [address] [facility] [address] [place] [address] documented as of this encounter Visit Diagnoses Not on filedocumented in this encounter Care Teams Lumber Carrier Operator Relationship Specialty Start Date End Date Susan Montemayor MD [facility]7 [facility] [address] [place] [address] PCP - General Family Practice 07/27/24 documented as of this encounter
--- OUTSIDE RECORDS SUMMARY | 2025-05-24 11:15 | XMS_ITS | Encounter Summary ---
Author Organization [facility] Address [address] [place] [address] Care Team Providers Care Professor Of Forest Planning Name Role Phone Taqueria Singleton MD Primary Care Provider + [phone] Manuel Salcedo DO Primary Care Provider [phone] Encounter Details Date Type Department Care Team (Late st Contact Info) Description 12/01/[address] [facility] Pathology Lab [address] [place] [address] Yajaira Rao MD [facility] [address] [address] Iron deficiency anemia secondary to blood loss (chronic) Social History Tobacco Use Types Packs/Day Years Used Date Smoking Tobacco: Never Assessed Comments Unknown Sex and Gender Information Value Date Recorded Sex Assigned at Not on file Legal Sex Female 6:08 AM PMP Gender Identity Not on file Sexual Orientation [...] AM CDT) Case Report Flow Cytometry Case: [id number] Authorizing Provider: Yajaira Rao MD Collected: 12/01/2021 08:35 AM Ordering Location: [facility] Pathology Lab Received: 12/01/2021 03:48 PM Pathologist: Bhavik Avilez MD Specimen: Bone Marrow 12/04/2021 9:26 AM [facility] PATHOLOGY LAB Final Diagnosis Bone marrow, flow cytometry: - No clonal B-cell or increased blast population identified 12/04/2021 9:26 AM [facility] PATHOLOGY LAB at [address] [facility] Flow Cytometry Interpretation The bone marrow specimen [...] flow cytometry specimen is reviewed for quality supervisor purposes. 12/04/2021 9:26 AM [facility] PATHOLOGY LAB Flow Cytometry Results Differential Result Comment Flow Cell Count /uL 18,600 Total Viability % 96.8 Lymphocytes % 30 Dim CD45 Region % 11 Monocytes % 18 Granulocytes % 40 12/04/2021 9:26 AM [facility] PATHOLOGY LAB Reason for test Iron deficiency anemia secondary to blood loss (chronic) 280.0 12/04/2021 9:26 AM [facility] PATHOLOGY LAB Client Specimen ID # [id number] 12/04/2021 9:26 AM [facility] PATHOLOGY LAB Number of markers 10 were performed. A-2 Flow CD10 A-3 Flow CD13 A-5 Flow CD20 A-1 Flow CD5 A-4 Flow CD19 A-6 Flow CD33 A-7 Flow CD34 A-8 Flow CD45 A-9 [place]+CD19+ A-10 Lambda+CD19+ 12/04/2021 9:26 AM [facility] PATHOLOGY LAB Disclaimer Test performed at [facility], [address] [place] [address], [address]. *The established laboratory minimum viability is 70%. [...] complexity clinical testing. 12/04/2021 9:26 AM CDT [facility] PATHOLOGY LAB Embedded Images 9:26 AM CDT [facility] PATHOLOGY LAB Pathology/Cytolo gy BONE MARROW SPECIMEN / Unknown 12/01/2021 8:35 AM CDT 12/01/2021 3:48 PM CDT Yajaira Rao MD LAB - PATHOLOGY/CYTOLOGY ORDERAB LES Final Result [facility] PATHOLOGY LAB [address] [phone] documented in this encounter Visit Diagnoses Diagnosis Iron deficiency anemia secondary to blood loss (chronic) documented in this encounter Care Teams Professor Of Forest Planning Relationship Specialty Start Date End Date Taqueria Singleton MD [address] [place] [address] PCP - General 06/19/21 07/10/23 Manuel Salcedo DO [address] [place] [phone] PCP - General Family Medicine 07/11/23 documented as of this encounter
--- OUTSIDE RECORDS SUMMARY | 2025-05-24 11:15 | XMS_ITS | Encounter Summary ---
Author Organization [facility] Address [address] [place] [address] Care Team Providers Care Mail Order Biller Name Role Phone Susan Montemayor MD Primary Care Provider Encounter Details Date Type Department Care Team (Late Contact Info) Description 06/06/1999 Outpatient Historical [facility] Internal Medicine [facility] and [address] [place] [address] Hyun Romo MD [address] [address] Social History Tobacco Use Types Packs/Day Years Used Date Smoking Tobacco: Never Assessed Comments Unknown Sex and Gender Information Value Date Recorded Sex Assigned at Not on file Legal Sex Female 4:40 AM HELP DESK SUPERVISOR Gender Identity Not on file Sexual Orientation Not on file documented as of this encounter Plan of Treatment Upcoming Encounters Date Type Department Care Team (Late st Contact Info) Description 07/23/2025 9:15 AM HELP DESK SUPERVISOR Office Visit [facility] Oncology and Hematology - [place] [address] [facility] [address] [place] [address] Samm Canas MD [address] [facility] [address] [place] [address] documented as of this encounter Visit Diagnoses Not on filedocumented in this encounter Care Teams Mail Order Biller Relationship Specialty Start Date End Date Susan Montemayor MD [facility]7 [facility] [address] [place] [address] PCP - General Family Practice 07/27/24 documented as of this encounter
--- OUTSIDE RECORDS SUMMARY | 2025-05-24 11:15 | XMS_ITS | Clinical Summary ---
Author Organization [facility] Address [address] [place] [phone] Care Team Providers Care Community Service Worker Name Role Phone Melissa Jeff NP Unavailable [phone] Samm Canas MD Unavailable [phone] Dandre Garrido MD Unavailable Franci Gilliam PhD Unavailable [phone] Linda Pichardo MD Unavailable Shaun Farias MD Primary Care Provide r Medina Martínez POCKETED SPRING ASSEMBLER Unavailable Unavaila ble Jame Godfrey MD PhD Unavailable Orlando Sigala MD Unavailable [phone] Loreta Mckenna MD Unavailable [phone] Allergies Active Allergy Reactions Criticality Noted Date Comments Aspirin Stomach upset,Unknown High 12/12/2021 Just 325 mg dose - baby aspirin 81 mg Penicillins Rash,Other (See comments) Medium 12/12/2011 Unknown. Was told as a child Reaction: Rash Sulfa (Sulfonamide Antibiotics) Rash Medium 12/12/2011 Medications fluticasone propionate (FLONASE) 50 mcg/actuation nasal spray Administer 2 sprays into each nostril daily 1 Inhaler 3 9 Active Additional Information Patient taking differently:2 spray each nostrilAs needed, allergies, Indications: allergies, Informant: Self, Reported on 04/14/2025 metFORMIN (GLUCOPHAGE) 500 mg tabletIndicatio ns:type 2 diabetes mellitus Take 1 tablet (500 mg total) by mouth 2 (two) times a day with meals 3 9 Active escitalopram (LEXAPRO) 5 mg tabletIndicatio ns:Anxiety with Depression Take 1 tablet (5 mg total) by mouth nightly 1 9 Active cholecalciferol (VITAMIN D-3) 25 mcg (1,000 unit) tabletIndicatio ns:Vitamin D Deficiency Take 1 tablet (1,000 Units total) by mouth every morning Active cyanocobalamin (Vitamin B-12) 1,000 mcg tabletIndicatio ns:Prevention of Vitamin B12 Deficiency Take 2 tablets (2,000 mcg total) by mouth every other day Every other day in the AM Active multivit-min/fo lic acid/leo129 (ALIVE PREMIUM ADULT ORAL)Indication s:supplement Take 2 tablets by mouth every morning Active BD Ultra-Fine Short Pen Needle 31 gauge x 5/16 needle USE 1 NEEDLE WITH INSULIN PEN TO INJECT INSULIN DAILY 3 Active SEMGLEE-yfgn 100 unit/mL (3 mL) pen for injectionIndica tions:DM 2 Inject 10 Units under the skin nightly 4 Active tamoxifen (NOLVADEX) 10 mg tabletIndicatio ns:prevention of breast cancer in high risk women Take 0.5 tablets (5 mg total) by mouth daily Or take one tablet every other day 45 tablet 3 5 06/03/19 26 Active Additional Information Patient taking differently:5 mg oralEvery other day, Take one tablet every other day, Indications: prevention of breast cancer in high risk women, Informant: Self, Reported on 04/14/2025 Accu-Chek Estefanía Plus test strp strip Use one test strip TID to check blood sugar. 100 strip 1 5 Active carvediloL (COREG) 12.5 mg tablet TAKE 1 TABLET BY MOUTH TWICE A DAY WITH FOOD 180 tablet 3 5 Active Additional Information Patient taking differently:12.5 mg oral2 times daily, Indications: hypertension, Informant: Self, Reported on 04/14/2025 losartan-hydroc hlorothiazide (HYZAAR) 100-25 mg per tablet TAKE 1 TABLET BY MOUTH EVERY DAY 90 tablet 3 5 Active Additional Information Patient taking differently:1 tablet oralNightly, Indications: hypertension, Informant: Self, Reported on 04/14/2025 ascorbic acid, vitamin C, 1,000 mg capsuleIndicati ons:Vitamin C Deficiency Take 1 g by mouth every morning 4 Active simvastatin (ZOCOR) 20 mg tabletIndicatio ns:hyperlipidem ia Take 1 tablet (20 mg total) by mouth every evening 5 Active ferrous sulfate (iron) 325 mg (65 mg of elemental iron) tabletIndicatio ns:Iron Deficiency Anemia Take 1 tablet (325 mg total) by mouth daily with breakfast Every other day in AM Active polyethylene glycol (MIRALAX) 17 gram/dose bulk powderIndicatio ns:constipation Take 17 g by mouth with lunch Active UNABLE TO FIND Take 1 each by mouth 2 (two) times a day Med Name: Diabetes support drops - 2 drops morning and afternoon Active aspirin 81 mg enteric coated tabletIndicatio ns:heart health Take 1 tablet (81 mg total) by mouth nightly 5 Active oxyCODONE (ROXICODONE) 5 mg immediate release tabletIndicatio ns:Pain Take 1 tablet (5 mg total) by mouth every 4 (four) hours as needed for pain 10 tablet 5 Active Additional Information Patient not taking.Reported on 04/14/2025 acetaminophen (TYLENOL) 325 mg tablet Take 2 tablets (650 mg total) by mouth every 4 (four) hours 5 Active Active Problems Problem Noted Date Diagnosed Date Prophylactic use of tamoxifen 10/16/2023 Encounter for monitoring tamoxifen therapy 10/15 History of breast cancer 09/17/2022 Hyperlipidemia 11/14/2021 Lobular carcinoma in situ (LCIS) of right breast 11/14/2021 Chronic anemia 11/10/2021 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 Diagnosis. [id number] squamous cell carcinoma of the left tongue Left partial glossectomy with primary closure ([place] 10/03/2015) Left digastric muscle flap closure of pharyngotomy ([place] 10/03/2015) Left selective neck dissection levels 1,2, and 3 ([place] 10/03/2015) 2. Diagnosis. 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 Transoral closure of left orocutaneous fistula ([place] 10/11/2015) Irrigation and washout of left neck wound ([place] 10/11/2015) Seasonal allergy 06/08/2014 Overview (08/31/2016): Seasonal [...] DIAGNOSIS: Left oral tongue cancer PROCEDURE PERFORMED: ([place] 03/30/25) Left partial glossectomy Intraductal carcinoma and lo bular carcinoma in situ (LCIS) of right breast 10/16/2023 Encounter to discuss treatment options 11/14/2021 10/16/2023 Encounters Date Type Department Care Team Description 05/07/2025 Telephone [facility] Head and Ne[facility] [address] [phone] Renee Leiva, YANET Navigation end 04/15/2025 1:00 PM ANAESTHETIC TECHNICIAN Clinical Support [address] [phone] Judy Anglin, PhD 04/14/2025 11:00 AM ANAESTHETIC TECHNICIAN Office Visit [facility] Radiation Oncology [address] [place] [phone] Loreta Mckenna MD Squamous cell carcinoma of tongue (HCC) (Primary Dx) 04/14/2025 10:40 AM ANAESTHETIC TECHNICIAN Office Visit [facility] Otolaryngology Head-Neck Division [address] [place] [phone] Orlando Sigala MD Squamous cell carcinoma of tongue (HCC) (Primary Dx) 04/13/2025 3:00 PM ANAESTHETIC TECHNICIAN Clinical Support [address] [phone] Judy Anglin, PhD Squamous cell carcinoma of tongue (HCC) 04/01/2025 Telephone [facility] [address] [phone] Renee Leiva, YANET Navigation post-op discharge call 03/30/2025 1:19 PM ANAESTHETIC TECHNICIAN Anesthesia Event [facility] Operating Room [address] [place] [address] Lois Melgoza MD Schoonover, Keely Dyan, NP 03/30/2025 1:08 PM ANAESTHETIC TECHNICIAN - 03/30/2025 3:20 PM ANAESTHETIC TECHNICIAN Surgery [facility] Operating Room [address] [place] [phone] Orlando Sigala MD GLOSSECTOMY 03/30/2025 10:52 AM ANAESTHETIC TECHNICIAN - 03/31/2025 10:07 AM ANAESTHETIC TECHNICIAN Hospital Encounter [address] [phone] Orlando Sigala MD Tongue cancer Discharge Disposition: Discharge to home or self care 03/30/2025 Telephone [facility] [address] [facility] Advanced Medicine [address] [place] [phone] Shona Tamez 03/29/[address] [facility] Otolaryngology [address] [place] [address] Hailey Gibson MS 03/29/2025 Telephone [facility] [address] [phone] Renee Leiva, RN Gurvinderatino pre-surgical check-in 03/25/2025 3:00 PM CDT Pre-Admission Testing [facility] for Preoperative Assessment and Planning [facility] Advanced Medicine ([facility]) [address] [place] [phone] Preoperative testing (Primary Dx) 03/19/2025 Telephone [facility] Head [facility] [address] [phone] Renee Leiva, YANET Navigation multidisciplinary check-in attempt 03/18/2025 9:30 AM CDT Office Visit [facility] Physicians [facility] Oncology [address] [place] [phone] Jame Godfrey MD PhD Squamous cell carcinoma of tongue (HCC) (Primary Dx); Lobular carcinoma in situ (LCIS) of right breast 03/17/2025 1:[address] [facility] Radiation Oncology [address] [place] [phone] Loreta Mckenna MD Squamous cell carcinoma of tongue (HCC) (Primary Dx) 03/17/2025 1:20 PM CDT Office Visit [facility] Otolaryngology Head-Neck Division [address] [place] [address] [address] [place] [phone] Orlando Sigala MD Squamous cell carcinoma of tongue (HCC) (Primary Dx) 03/17/2025 8:38 AM CDT - 03/17/2025 11:59 PM CDT Hospital Encounter [facility] Cancer Center - PET [address] [place] [address] Floor [address] [place] [address] Discharge Disposition: Discharge to home or self care 03/17/2025 8:37 AM CDT - 03/17/2025 11:59 PM CDT Hospital Encounter [facility] - PET [address] [facility] Floor [address] [place] [address] Squamous cell carcinoma of tongue (HCC); Tongue lesion; 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) Discharge Disposition: Discharge to home or self care 03/17/2025 8:37 AM CDT - 03/17/2025 11:59 PM CDT Hospital Encounter [facility] [place] [address] [facility] Floor [address] [place] [address] Squamous cell carcinoma of tongue (HCC); Tongue lesion Discharge Disposition: Discharge to home or self care 03/17/2025 Telephone [facility] Head [facility] [address] [place] [phone] Renee Leiva, YANET Dental clearance forms obtained 03/16/2025 Telephone [facility] [address] [place] [phone] Renee Leiva, YANET Dental clearance sent 03/12/2025 Documentation [facility] [address] [place] [phone] Medina Martínez, POCKETED SPRING ASSEMBLER 03/12/2025 Telephone [facility] Head and [facility] Tumor Center [address] [place] [phone] Renee Leiva, YANET Navigation initial call 03/12/2025 Documentation [facility] [address] [place] [phone] Medina Martínez, POCKETED SPRING ASSEMBLER 03/11/2025 Telephone [facility] [address] [place] [phone] Renee Leiva, YANET 03/11/[address] [facility] Otolaryngology Head-Neck Division [address] [facility] Floor [address] [place] [phone] Orlando Sigala MD Squamous cell carcinoma of tongue (HCC) (Primary Dx) 03/10/[address] [facility] Otolaryngology Head-Neck Division [address] [place] [phone] Orlando Sigala MD 03/10/[address] 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 Otolaryngology Head-Neck Division [address] [place] [phone] Julienne Terrazas PA Squamous cell carcinoma of tongue (HCC) (Primary Dx); Tongue lesion from Last 3 Months Immunizations Immunization Administration Dates Next Due COVID-19 mRNA ([employer]) 0.3 m L (30 mcg) vaccine (12 years and up) 03/05/2023 Hep B Vaccine 07/25/2001,02/26/2001,01/24/2001 Influenza, Quad, Adjuvantate d, Intramuscular 02/22/2021 Influenza, Quadrivalent, Hig h Dose, Preservative Free, Intrr 02/02/2020 Influenza, Trivalent, Adjuva nted, Intramuscular 02/19/2019 Influenza, Trivalent, High D ose, Split, Preservative Free, Intramuscular 03/24/2024,03/06/2018,03/05/2018,03/14 Influenza, Trivalent, IM (MDV) 03/10/2022 [employer] SARS-CoV-2 Monovalent Vaccination (12+ Yrs) -READY TO USE 09/13/2021 Pfizer SARS-CoV-2 Monovalent Vaccination (12+ Yrs) PURPLE 09/13/2021 [employer] Sars-Cov-2 Bivalent V accination (12+ YRS) 03/10/2022 Pneumococcal Conjugate PCV 13 05/27/2014 Pneumococcal Polysaccharide PPV23 02/19/2019,05/2015 Td, adsorbed 01/29/2006 Tdap 04/26/2022 ZOSTER LIVE 09/13/2014 ZOSTER Recombinant 05/13/2020,02/02/2020 Surgical [...] Squamos Cell Carcinoma of Tongue COLONOSCOPY 2020 GLOSSECTOMY 03/30/2025 Mouth/Left Procedure: GLOSSECTOMY; Surgeon: Orlando Sigala MD; Location: [facility] OR POD 5; Service: Otolaryngology; Laterality: Left; Medical History Medical History Date Comments Rotator cuff tear, right Fibroids HL (hearing loss) Tinnitus Hypertension Type 2 diabetes mellitus Anemia 2000 Cancer (HCC) 2015 and 2021 different types/ 2 surgeries Menstrual problem [id number] Dizziness December 21, 2022 History of transfusion 1977 Family History Medical History Relation Name Comments Diabetes Brother 1 Terry Kimball Hypertension Brother 1 Terry Kimball Hypertension ; Diabetes Brother 2 Wilfredo Kimball Hypertension Brother 2 Wilfredo Kimball Diabetes Father Luis Armando Joseph Family history [...] (Added by TW Conv) Anemia Mother Lola Kimball Diabetes Mother Lola Kimball Family hist ory of diabetes mellitus - (Added by TW Conv) Diabetes type II Mother Lola Kimball Diabete s -Type II; Heart disease Mother Lola Kimball Family his tory of cardiac disorder - (Added by TW Conv) Heart failure Mother Lola Kimball Congestive heart failure; Hypertension Mother Lola Kimball Hypertensio n; /Family history of hypertension - (Added by TW Conv) Diabetes Other 1 Family history of Diabetes; Hypertension Other 2 Family history of Hypertension; Depression Sister 1 Lise Cordelia Diabetes Sister 1 Lise Cordelia Hearing loss Sister 1 Lisejesus manuel Ruelasks Heart failure Sister 1 Lisejesus manuel Ruelasks Hypertension Sister 1 Lisejesus manuel Ruelasks Kidney disease Sister 1 Lise Cordelia Memory loss Sister 1 Lise Ruelasks Stroke Sister 1 Lise Ruelasks Stroke; Heart failure Sister 2 Congestive hea rt failure; Anesthesia problems Neg Hx Relation Name Status Comments Brother 1 Terry Kimball Brother 2 Wilfredo Kimball Father Luis Armando Joseph Mother Lola Kimball Other 1 Other 2 Sister 1 Lise Storey Sister 2 Social History Tobacco Use Types Packs/Day Years Used Date Smoking Tobacco: Never Passive Smoke Exposure: Never Smokeless Tobacco: Never Tobacco Cessation:Counseling Given: Not Answered Alcohol Use Standard Drinks/Week Comments Never 0 [...] 03/12/2025 How often do you attend chur or jain services? More than 4 times per year 03/12/2025 Do you belong to any clubs o r organizations such as synagogue groups, unions, fraternal or athletic groups, or [...] any time in the past 12 m [facility], were you homeless or living in a snf (including now)? No 03/12/2025 [facility] Utilities Answer Date Recorded In the [...] on file Legal Sex Female 11:24 PM ANAESTHETIC TECHNICIAN Gender Identity Female 12/31/2022 7:44 AM CDT Sexual Orientation Straight 12/31/2022 7: 44 AM CDT Obstetrics History Para Term AB IAB SAB Ectopic Multiple Livin g Live Births 0 0 Last Filed Vital Signs Vital Sign Reading Time Taken Comments Blood Pressure 161/55 03/31/2025 7:07 AM ANAESTHETIC TECHNICIAN Pulse 86 03/31/2025 7:07 AM ANAESTHETIC TECHNICIAN Temperature 36.6 C (97.9 F) 03/31/2025 7:07 AM ANAESTHETIC TECHNICIAN Respiratory Rate 16 03/31/2025 7:07 AM ANAESTHETIC TECHNICIAN Oxygen Saturation 98% 03/31/2025 7:07 AM ANAESTHETIC TECHNICIAN Inhaled Oxygen Concentration - - Weight 76.4 kg (168 lb 6.9 oz) 03/31/2025 4:51 A M ANAESTHETIC TECHNICIAN Height 167.6 cm (5' 5.98) 03/31/2025 4:51 AM CS T Body Mass Index 27.2 03/31/2025 4:51 AM ANAESTHETIC TECHNICIAN Plan of Treatment Health Maintenance Due Date Last Done Comments Albumin Creatinine Ratio, Urine 1945 Hepatitis C Screening 1945 Dilated Eye Exam 1945 Foot Exam 1945 Well Visit 65+ 2011 Lipid Panel 10/16/2023 10/15/2022, 02/24, 08/24/2020, Additional history exists Osteoporosis Screening-Bone Density Scan 09/27/2024 09/27/2022, 06/23/2012, 06/23/2012 Covid-19 Vaccine (2 6 season) 2025 03/05/2023, 03/10/2022, 09/13/2021, Additional history exists Influenza Vaccine (#1) 2025 , 03/10/2022, 02/22/2021, Additional history exists Hemoglobin A1C 09/23/2025 03/25/2025 Depression Screening 03/12/2026 03/12/2025 eGFR 03/25/2026 03/25/2025, 09/17/2022 Fall Risk Assessment 03/31/2026 03/31/2025, 09/28/19 23 DTaP/Tdap/Td Vaccine (2 - Td or Tdap) 04/26/2032 04/26/2022, 01/29/2006 Hepatitis B Screening Completed 07/25/2001 , 02/26/2001, 01/24/2001 Colon Cancer Screening-CT Colonography Discontinued 03/06/2017 Colon Cancer Screening-Colonoscopy Discontinued 03/06/2017 Colon Cancer Screening-DNA Stool Discontinued 03/06/20 17 Colon Cancer Screening-FIT Discontinued 03/06/2017 Colon Cancer Screening-FOBT Discontinued 03/06/2017 Colon Cancer Screening-Sigmoidoscopy Discontinued 03/06/2017 Colorectal Cancer Screening Discontinued Pneumococcal vaccine 65+ Completed 019, 05/27/2015, 05/27/2014 Zoster Vaccine Completed 05/13/2020, 12/2019, 09/13/2014 Breast Cancer Screening-Mammogram Discontinued 09/21/2024, 09/16/2023, 09/12/2022, Additional history exists Medical Devices Implanted Type Area Engineering Geologist Device Identifier Shelf Expiration Date Model / Serial / Lot [employer] Peripheral [employer] Ghiatas 20ga 20cm 7cm Beaded Needle Breast Wire Localization [id number] - [id number] Implanted:Qty: 1 on 08/29/2021 at [facility] Right: Breast [employer] [id number] / / [employer] Ghiatas 20ga 20cm 9cm Beaded Needle Breast Wire Localization [id number] - [id number] Implanted:Qty: 1 on 08/29/2021 at [facility] Right: Breast [employer] [id number] / / Procedures Procedure Name Priority Date/Time Associated Diagnosis Comments SURGICAL PATHOLOGY Routine 03/30/2025 1: 59 PM ANAESTHETIC TECHNICIAN Tongue cancer ANESTHESIA INTUBATION Routine 03/30/2025 1:43 PM ANAESTHETIC TECHNICIAN GLOSSECTOMY. 03/30/2025 1:25 PM ANAESTHETIC TECHNICIAN Tongue cancer Case Notes 03/19@1035- Toro Masters via phone call reschedule to 03/30- [facility] POCT GLUCOSE DEVICE Routine 03/30/2025 1 2:10 PM ANAESTHETIC TECHNICIAN EGFR Routine 03/25/2025 5:06 PM CDT Preoperative testing DIFFERENTIAL AUTO Routine 03/25/2025 5:0 6 PM CDT Preoperative testing BASIC METABOLIC PANEL Routine 03/25/2025 5:06 PM CDT Preoperative testing CBC WITH AUTO DIFFERENTIAL Routine 03/25/2025 5:06 PM CDT Preoperative testing TYPE AND SCREEN 14 DAY Routine 03/25/2025 5:06 PM CDT Preoperative testing ECG 12-LEAD Routine 03/25/2025 3:58 PM CDT Preoperative testing POCT HEMOGLOBIN A1C Routine 03/25/2025 3 :36 PM CDT PET/CT FDG SKULL TO THIGH Schedule Routine, Read Routine (OP Routine) 03/17/2025 11:04 AM CDT Squamous cell carcinoma of tongue (HCC) Tongue lesion 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) CT SOFT TISSUE NECK W CONTRAST Schedule Routine, Read Routine (OP Routine) 03/17/2025 8:55 AM CDT Squamous cell carcinoma of tongue (HCC) Tongue lesion SURGICAL PATHOLOGY Routine 03/03/2025 10 :14 AM CDT Tongue lesion DIAGNOSTIC MAMMOGRAM BILATERAL W TREVOR Schedule Routine, [...] Recently Relevant to Health Maintenance Results * Surgical pathology (03/30/2025 1:59 PM ANAESTHETIC TECHNICIAN) Tissue (Tongue - Resection for Tumor) 03/30/2025 1:59 PM ANAESTHETIC TECHNICIAN Tissue specimen (specimen) (Tongue - Resection for Tumor) 03/30/2025 1:59 PM ANAESTHETIC TECHNICIAN Tissue specimen (specimen) (Tongue - Resection for Tumor) 03/30/2025 1:58 PM ANAESTHETIC TECHNICIAN Narrative PATHOLOGY [facility] - 04/05/2025 2:58 PM ANAESTHETIC TECHNICIAN EPIC results best viewed via link to PDF [facility] [place] [address] Note to Patients: This report may contain a detailed description of human tissue sent by a health care provider to the laboratory for pathologic evaluation. The content of this report is essential for diagnosis and may provide important critical findings. This information may be unfamiliar to patients to review without a medical professional present. It is advised that the patient review this report in the presence of a health care provider who can answer questions and explain the details. SURGICAL PATHOLOGY REPORT FINAL Patient Name: KEERTHI KIMBALL Gender: F : 1945 (Age: 79) Address: [address] [place], [place] [phone] Hospital #: [id number] Taken:03/30/2025 Received:03/30/2025 Reported: 04/05/2025 Patient Type: [facility] OP In Bed Service: Ear Nose Throat Location: [facility] 0173 Physician(s): Dino Worthington M.D. Diagnosis: A. Dorsal margin, excision (AFR1): - Negative for carcinoma - Negative for dysplasia B. Ventral margin, excision (BFR1): - Negative for carcinoma - Negative for dysplasia C. Tongue, Left partial glossectomy: - Residual squamous cell carcinoma, conventional, moderately differentiated, keratinizing, 1.0 cm - Depth of invasion < 1 mm - Negative for perineural invasion - Negative for lymphatic invasion - Background severe dysplasia - Specimen margin negative for invasive carcinoma, nearest is 2.4 mm to peripheral mucosal margin - Severe epithelial dysplasia bordering on SCCIS is present at peripheral mucosal margin - Pathologic stage (AJCC 8th edition): pT1 pNX - See synoptic report alak04/03/2025 14:48 By this signature, I attest that the above diagnosis is based upon my personal examination of the slides(and/or other material indicated in the diagnosis). Alejandro Jewell MD PhD Report Electronically Reviewed and Signed Out By Alejandro Jewell MD PhD 04/05/2025 14:58:50 Diagnosis Comment The main specimen margins (part C) show a minute focus (exhausted on deeper levels) of severe dysplasia present at the cauterized inked specimen edge. The spatial relationship to this area and the separaetly submitted final margins is unclear. Both of the separatly submitted final margins are negative for carcinoma and dysplasia. Intraoperative Consultation: Frozen Section Diagnosis AFR1: Dorsal margin Negative for malignancy By Tunde Leiva M.D., PH.D., Jonathan DudleyB.B.S. BFR1: Ventral margin Negative for malignancy By Tunde Leiva M.D., PH.D., Jonathan DudleyB.B.S. Gross Consultation A: Dorsal margin Received fresh, labeled with the patient's identifiers and dorsal margin is a 2.0 x 0.5 x 0.3 tissue fragment. Entirely submitted in AFR1. By Tunde Leiva M.D., PH.D., Jonathan DudleyB.B.S. B: Ventral margin Received fresh, labeled with the patient's identifiers and ventral margin is a 0.4 x 0.2 x 0.1 cm tissue fragment. Entirely submitted in BFR1. By Tunde Leiva M.D., PH.D., Perry Dudley.B.S. I personally examined the relevant preparation(s) or a microscopic image of the relevant preparation(s) for the specimen(s) while the surgical procedure was still underway and rendered or confirmed the diagnosis(es) Report Electronically reviewed and Signed out by Rongbin Ge, M.D., PH.D. (A - B) Selma Denis M.D. History: The patient is a 71-year-old woman with tongue cancer. Operative Procedure: Glossectomy and neck dissection Specimen(s) Received: A: Dorsal margin B: Ventral margin C: Left partial glossectomy Gross Description: Received in three formalin jars labeled with the patient's identifiers. A. Labeled dorsal margin is a single cassette with frozen section remnant labeled with the patient identifiers and AFR1. The cassette is submitted for processing. Jar 0 B. Labeled ventral margin is a single cassette with frozen section remnant labeled with the patient identifiers and BFR1. The cassette is submitted for processing. Jar 0 C. Labeled left partial glossectomy is an unoriented ellipse of purple kim mucosa (3.2 x 1.5 cm and 0.9 cm in thickness). Centrally located on the skin surface is an ulcerated area (1.0 x 0.5 cm) located 0.5 cm from the closest margin. Serial sections show no underlying masses. The specimen is submitted entirely as follows: C1-C2 Apical tips, radially sectioned C3-C5 All remaining tissue, sequentially submitted Jar 0. /03/31/2025 08:46 PA(s): EMILIE Handley ([facility])CM CANCER CASE SUMMARY FOR CANCER OF THE LIP AND ORAL CAVITY Procedure: Glossectomy: left partial Tumor Site: Ventral surface of tongue Tumor Laterality: Left Tumor Focality: Unifocal Tumor Size: Greatest dimension: 1.0 cm Tumor Depth of Invasion (DOI): 1 mm Histologic Type: Squamous cell carcinoma, conventional Histologic Grade: G1: Well differentiated G2: Moderately differentiated Specimen Margins: Uninvolved by invasive tumor Distance from closest margin: 2.4 mm Involved by high-grade dysplasia/in situ disease Tumor Bed Margin Orientation: Unoriented to true margin surface Tumor Bed Margins: Uninvolved by invasive tumor Uninvolved by high-grade dysplasia/in situ disease Lymphovascular Invasion: Not identified Perineural Invasion: Not identified Worst Pattern of Invasion (WPOI): WPOI 1-4 Regional Lymph Nodes: No nodes submitted or found Pathologic Stage Classification (pTNM, AJCC 8th Edition): pT1: Tumor <=2 cm, <=5 mm depth of invasion (DOI) pNX: Regional lymph nodes cannot be assessed The pathologic stage assigned here should be regarded as provisional, and may change after integration of clinical data not provided with this specimen. CAP VERSION: LipOralCavity 4.0.0.1 By this signature, I attest that the above diagnosis is based upon my personal examination of the slides(and/or other material). Addenda/Procedures The performance characteristics of some immunohistochemical stains, fluorescence in-situ hybridization tests and immunophenotyping by flow cytometry cited in this report (if any) were determined by the Surgical Pathology and Flow Cytometry Departments at [facility] as part of an ongoing quality liaison program and in compliance with federally mandated regulations drawn from the Clinical Laboratory Improvement Act of 1988 (CLIA '88). Some of these tests rely on the use of analyte specific reagents and are subject to specific labeling requirements by the US Food and Drug Administration. Such diagnostic tests may only be performed in a facility that is certified by the Department of Health and Human Services as a high complexity laboratory under CLIA '88. The FDA has determined that such clearance or approval is not necessary. This test is used for clinical purposes. It should not be regarded as investigational or for research. Nevertheless, federal rules concerning the medical use of analyte specific reagents require that the following disclaimer be attached to the report: This test was developed and its performance characteristics determined by the Surgical Pathology and Flow Cytometry Departments of [facility]. It has not been cleared or approved by the U. S. Food and Drug Administration. IMAGES AND SCANNED DOCUMENTS, IF INCLUDED, ONLY VIEWABLE IN PDF VERSION OF REPORT us Orlando Sigala MD LAB PATHOLOGY ORDERABLES F inal Result PATHOLOGY [facility] 3rd Floor [place], [place] [phone] * Airway (03/30/2025 1:43 PM ANAESTHETIC TECHNICIAN) Narrative Gosia Kurtz MD - 03/30/2025 1:43 PM ANAESTHETIC TECHNICIAN Gosia Kurtz MD 03/30/2025 1:43 PM Airway Patient location: OR Urgency: elective Indications for airway management: anesthesia Difficult airway: no Staff: Supervising provider: Lois Melgoza MD Placed by: Resident: Gosia Kurtz MD Emergent airway documentation: Risks and benefits discussed: yes Consent obtained: yes Consent given by: patient Airway prep: Preoxygenated: yes Patient position: sniffing Mask difficulty assessment: 1 - vent by mask Spontaneous ventilation during airway: absent Sedation level during airway: GA Final airway details: Final airway type: endotracheal airway Tube type: ETT ETT size: 7.0 mm Cuffed: yes Technique used for successful ETT placement: video laryngoscopy Devices/Methods used in placement: cricoid pressure Insertion site: oral Blade type: Feng Video blade type: Carlos Blade size: 3 Cormack-Lehane (video): grade I - full view of glottis Cuff inflated with: air ETT to lips: 22 cm Placement verified by: auscultation and CO2 detection Airway secured with: silk tape Number of attempts: 1 us Lois Melgoza MD ANESTHESIA ORDERABLES Lauren l Result * POCT glucose (03/30/2025 12:10 PM ANAESTHETIC TECHNICIAN) Glucose, POC 173 70 - 199 mg/dL Blood 03/30/2025 12:1 0 PM ANAESTHETIC TECHNICIAN 03/30/2025 12:10 PM ANAESTHETIC TECHNICIAN us Orlando Sigala MD LAB POCT ORDERABLES - CARLOZ CE Final Result Performing Organization Address [facility] de Phone Number [facility] Department [place] [address] * TYPE AND SCREEN 14 DAY (03/25/2025 5:06 PM CDT) Liz, indirect Negative ABO Rh O Positive [facility] Blood 03/25/2025 5:06 PM CDT 03/25/2025 5:47 PM CDT Narrative [facility] - 03/25/2025 6:42 PM CDT Is this test being ordered in advance for a procedure?->Yes Expected date of procedure:->03/30/25 Has the patient been transfused in the past 3 months?->No Has the patient been in the past 3 months?->No us Shona Urias NP LAB BLOOD BANK TEST ORD ERABLES Final Result Performing Organization Address City/State/[facility] Co de Phone Number [facility] [place] [address] * (ABNORMAL) eGFR (03/25/2025 5:06 PM CDT) eGFR 49(L) >=60 mL/min/1. 73 m2 Comment: Interpretive Data Reference Interval Normal >/= [...] Current interpretive data was last reviewed 2021. Blood 03/25/2025 5:06 PM CDT 03/25/2025 5:55 PM CDT Shona Urias NP LAB BLOOD ORDERABLES Fi nal Result Performing Organization Address [facility] Co de Phone Number [facility] Department [place] [address] * Differential, auto (03/25/2025 5:06 PM CDT) Neutrophil abs 1.95 1.50 - 6.50 K/cumm Imm gran abs 0.00 0.00 - 0.10 K/cumm [facility] Lymphocyte abs 1.76 0.80 - 3.30 K/cumm [facility] Monocyte abs 0.38 0.20 - 0.80 K/cumm [facility] Eosinophil abs 0.11 0.00 - 0.50 K/cumm [facility] Basophil abs 0.03 0.00 - 0.10 K/cumm [facility] Neutrophil pct 46.1 % [facility] Comment: Interpretive Data Percent cell count reference ranges are not reported, since discordance with absolute values may lead to misinterpretation of CBC data. Current Interpretive Data was last revised on 2017. Imm gran pct 0.0 % [facility] Comment: Interpretive Data Percent cell count reference ranges are not reported, since discordance with absolute values may lead to misinterpretation of CBC data. Current Interpretive Data was last revised on 2017. Lymphocyte pct 41.6 % [facility] Comment: Interpretive Data Percent cell count reference ranges are not reported, since discordance with absolute values may lead to misinterpretation of CBC data. Current Interpretive Data was last revised on 2017. Monocyte pct 9.0 % [facility] Comment: Interpretive Data Percent cell count reference ranges are not reported, since discordance with absolute values may lead to misinterpretation of CBC data. Current Interpretive Data was last revised on 2017. Eosinophil pct 2.6 % [facility] Comment: Interpretive Data Percent cell count reference ranges are not reported, since discordance with absolute values may lead to misinterpretation of CBC data. Current Interpretive Data was last revised on 2017. Basophil pct 0.7 % [facility] Comment: Interpretive Data Percent cell count reference ranges are not reported, since discordance with absolute values may lead to misinterpretation of CBC data. Current Interpretive Data was last revised on 2017. Blood 03/25/2025 5:06 PM CDT 03/25/2025 5:59 PM CDT us Shona Urias NP LAB BLOOD ORDERABLES Fi nal Result [facility] Department [place] [address] * (ABNORMAL) CBC with auto differential (03/25/2025 5:06 PM CDT) WBC 4.23 3.80 - 9.90 K/cumm Hgb 10.2(L) 11.9 - 15.5 g/dL [facility] Hct 30.8(L) 35.6 - 45.5 % [facility] Plt 244 150 - 400 K/cumm [facility] MPV 11.1 9.1 - 12.3 fL [facility] RBC 3.41(L) 3.90 - 5.20 M/cumm [facility] MCV 90.3 81.3 - 96.4 fL [facility] MCH 29.9 27.1 - 33.3 pg [facility] MCHC 33.1 32.3 - 35.7 g/dL [facility] RDW CV 13.1 11.1 - 14.9 % [facility] RDW SD 43.5 35.7 - 48.1 fL [facility] NRBC abs 0.00 0.00 - 0.01 K/cumm [facility] Blood 03/25/2025 5:06 PM CDT 03/25/2025 5:59 PM CDT us Shona Urias DETECTIVE SERGEANT LAB BLOOD ORDERABLES nal Result [facility] [place] [address] * (ABNORMAL) Basic metabolic panel (03/25/2025 5:06 PM CDT) Sodium 139 135 - 145 mmol/L Potassium, pl 3.9 3.3 - 4.9 mmol/L [facility] Chloride 101 97 - 110 mmol/L [facility] CO2 25 22 - 32 mmol/L [facility] Anion gap 13 2 - 15 mmol/L [facility] BUN 22 6 - 25 mg/dL [facility] Creatinine 1.14(H) 0.60 - 1.10 mg/dL [facility] Glucose 78 70 - 199 mg/dL [facility] Comment: Interpretive Data Fasting glucose >/= 126 mg/dl is diagnostic for diabetes. Fasting is defined as no caloric intake for at least 8 hours. Fasting glucose between 100 mg/dl to 125 mg/dl is diagnostic of prediabetes. In a patient with classic symptoms of hyperglycemia or hyperglycemic crisis, a random glucose >/= 200 mg/dl is diagnostic for diabetes. In the absence of unequivocal hyperglycemia, results should be confirmed by repeat testing. The classification and Diagnosis of Diabetes Diabetes Care 2021; 46: S19-S40. Current interpretive data was last revised 2022. Calcium 9.5 8.5 - 10.3 mg/dL [facility] Blood 03/25/2025 5:06 PM CDT 03/25/2025 5:55 PM CDT us Shona Urias NP LAB BLOOD ORDERABLES Fi nal Result Performing Organization Address City/[facility]/ZIP Co de Phone Number [facility] Department [place] [address] * ECG 12 lead (03/25/2025 3:58 PM CDT) Pathologist [facility] Ventricular Rate EKG/Min 53 BPM [facility] Atrial Rate 54 BPM [facility] [place]-Interval (MSEC) 202 ms [facility] QRS-Interval (MSEC) 86 ms [facility] QT-Interval (MSEC) 448 ms [facility] QTc 420 ms [facility] P [place] 66 degrees [facility] R [place] -5 degrees [facility] T [place] 51 degrees [facility] Diagnosis Sinus bradycardia with sinus arrhythmia Poor R-wave progression in the precordial leads First degree av-block Borderline ECG When compared with ECG of 03-OCT-2015 11:43, voltage criteria for LVH sre not met Confirmed by ANTONIO HARDING M.D ([id number]) on 03/26/2025 12:55:28 PM [facility] 03/25/2025 3:58 PM CDT 03/26/2025 12:55 PM CDT us Shona Urias NP ECG ORDERABLES Final R esult Performing Organization Address City/[facility]/ZIP Co de Phone Number [facility] * (ABNORMAL) POCT hemoglobin A1c (03/25/2025 3:36 PM CDT) Hgb A1C, POC 8.1(H) 4.0 - 5.6 % Est Average Gluc POC 186 mg/dL [facility] Comment: The ADA recommends reporting an estimated Average Glucose (eAG) with all Hemoglobin A1c results using the equation derived from a study of 507 normal and diabetic adults. Minority populations were underrepresented and children were not included. (Diabetes Care 31:8193-2977, 2008). The eAG is not equivalent to a fasting glucose. Blood 03/25/2025 3:36 PM CDT 03/25/2025 3:36 PM CDT us Orlando Sigala MD POINT OF CARE TEST ORDERAB LES Final Result [facility] [place] [address] * PET/CT FDG Skull to Thigh (03/17/2025 11:04 AM CDT) Anatomical Region Laterality Modality N/A Positron Emissio n Tomography (PET) 03/17/2025 1:52 PM CDT Impressions 03/17/2025 2:13 PM CDT 1. Focal uptake along the medial aspect of the left lateral tongue, corresponding to biopsy-proven recurrent disease. Recommend correlation with direct visualization. 2. Subcentimeter mildly hypermetabolic right level 4 lymph node is indeterminate for reactive lymph node versus metastatic disease. 3. Soft tissue mass in the right breast demonstrates mild hypermetabolic activity and may represent postsurgical changes. This is best followed with diagnostic mammogram and ultrasound. Dictated by: Shabbir Tamayo MD The radiology attending physician has personally reviewed this study, and had reviewed and/or edited this written report and agrees with it. Electronically signed by: Edmar Yanes DO Narrative 03/17/2025 2:13 PM CDT EXAMINATION: TUMOR FDG-PET/CT IMAGING DATE OF STUDY: 03/17/2025 SCANNER: [facility] Q.branch (SQ1). This is a high-resolution scanner, which can result in higher SUVs (and even detection of previously unrecognized small lesions) compared to older scanners. RADIOPHARMACEUTICAL: 7.5 mCi F-18 Fluorodeoxyglucose (FDG) i.v. 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 The study is requested for restaging of documented recurrent disease . Subsequent treatment strategy. TECHNIQUE: The patient's fasting blood glucose level, measured by glucometer before injection of FDG, was 130 mg/dL. After intravenous administration of FDG, noncontrast CT images were obtained for attenuation correction and for fusion with emission PET images to allow for anatomical localization of PET findings. Emission PET images were then obtained. The study was interpreted on the Gingr workstation. The mean liver SUV (reported for quality liaison purposes) is 3.0. The total scanned area was skull vertex to proximal thighs. Images of the body were obtained starting 57 minutes after injection of tracer. All reported SUVs are maximum SUVs, unless otherwise specified. COMPARISON: CT 03/17/2025 DESCRIPTORS OF LESION FDG AVIDITY: Minimal: <= blood pool Mild: > blood pool and <= liver Moderate: > liver and <= 2x SUVmax liver Moderate to marked: >2x SUVmax liver and <= 3x SUVmax liver Marked: > 3x SUVmax liver FINDINGS: Post surgical changes of left partial glossectomy, left submandibular gland resection, and left cervical lymph node dissection. There is a small focus of mild hypermetabolic activity with SUV of 3.6, along the medial aspect of the left mandible, which is difficult to accurately localize (image 70). This uptake may represent dental/periodontal disease or possible uptake in the lateral aspect of the left tongue. Mildly hypermetabolic subcentimeter right level 4 lymph node demonstrates SUV of 2.9 (image 88). There is a 2.7 x 2.0 cm soft tissue density in the right breast that demonstrate mild hypermetabolic activity, SUV of 2.7 (image 139). While these may be postsurgical changes, should be noted that FDG PET may be relatively insensitive to recurrence of carcinoma in situ. The August 2024 diagnostic mammogram demonstrated benign changes of right breast conservation therapy, with no suspicious findings. Additional CT findings: Bilateral lens replacements. Intracranial atherosclerotic calcifications. 3 vessel coronary artery disease. Mild atherosclerotic calcifications of the aortic arch, proximal great vessels, left carotid bifurcation, and descending thoracic aorta. Mitral annular calcifications. Mild dependent atelectasis in the lower lobes. Excreted contrast is noted in the collecting system. Small fat-containing umbilical hernia. There is severe diffuse body wall edema. Fixation hardware is noted in the right humeral head. Procedure Note Edmar Yanes, DO - 03/17/2025 EXAMINATION: TUMOR FDG-PET/CT IMAGING DATE OF STUDY: 03/17/2025 SCANNER: [facility] Q.branch (SQ1). This is a high-resolution scanner, which can result in higher SUVs (and even detection of previously unrecognized small lesions) compared to older scanners. RADIOPHARMACEUTICAL: 7.5 mCi F-18 Fluorodeoxyglucose (FDG) i.v. 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 The study is requested for restaging of documented recurrent disease . Subsequent treatment strategy. TECHNIQUE: The patient's fasting blood glucose level, measured by glucometer before injection of FDG, was 130 mg/dL. After intravenous administration of FDG, noncontrast CT images were obtained for attenuation correction and for fusion with emission PET images to allow for anatomical localization of PET findings. Emission PET images were then obtained. The study was interpreted on the Gingr workstation. The mean liver SUV (reported for quality liaison purposes) is 3.0. The total scanned area was skull vertex to proximal thighs. Images of the body were obtained starting 57 minutes after injection of tracer. All reported SUVs are maximum SUVs, unless otherwise specified. COMPARISON: CT 03/17/2025 DESCRIPTORS OF LESION FDG AVIDITY: Minimal: <= blood pool Mild: > blood pool and <= liver Moderate: > liver and <= 2x SUVmax liver Moderate to marked: >2x SUVmax liver and <= 3x SUVmax liver Marked: > 3x SUVmax liver FINDINGS: Post surgical changes of left partial glossectomy, left submandibular gland resection, and left cervical lymph node dissection. There is a small focus of mild hypermetabolic activity with SUV of 3.6, along the medial aspect of the left mandible, which is difficult to accurately localize (image 70). This uptake may represent dental/periodontal disease or possible uptake in the lateral aspect of the left tongue. Mildly hypermetabolic subcentimeter right level 4 lymph node demonstrates SUV of 2.9 (image 88). There is a 2.7 x 2.0 cm soft tissue density in the right breast that demonstrate mild hypermetabolic activity, SUV of 2.7 (image 139). While these may be postsurgical changes, should be noted that FDG PET may be relatively insensitive to recurrence of carcinoma in situ. The August 2024 diagnostic mammogram demonstrated benign changes of right breast conservation therapy, with no suspicious findings. Additional CT findings: Bilateral lens replacements. Intracranial atherosclerotic calcifications. 3 vessel coronary artery disease. Mild atherosclerotic calcifications of the aortic arch, proximal great vessels, left carotid bifurcation, and descending thoracic aorta. Mitral annular calcifications. Mild dependent atelectasis in the lower lobes. Excreted contrast is noted in the collecting system. Small fat-containing umbilical hernia. There is severe diffuse body wall edema. Fixation hardware is noted in the right humeral head. IMPRESSION: 1. Focal uptake along the medial aspect of the left lateral tongue, corresponding to biopsy-proven recurrent disease. Recommend correlation with direct visualization. 2. Subcentimeter mildly hypermetabolic right level 4 lymph node is indeterminate for reactive lymph node versus metastatic disease. 3. Soft tissue mass in the right breast demonstrates mild hypermetabolic activity and may represent postsurgical changes. This is best followed with diagnostic mammogram and ultrasound. Dictated by: Shabbir Tamayo MD The radiology attending physician has personally reviewed this study, and had reviewed and/or edited this written report and agrees with it. Electronically signed by: Edmar Yanes DO us Julienne PHAN IMG PET PROCEDURES Lauren rukhsana Result * CT Neck Soft Tissue W Contrast (03/17/2025 8:55 AM CDT) Anatomical Region Laterality Modality Head and Neck N/A Computed Tomogra phy 03/17/2025 1:27 PM CDT Impressions 03/17/2025 1:55 PM CDT Status post left partial glossectomy , muscle flap and left neck miguel dissection. No evidence of local disease recurrence. No neck lymphadenopathy. Dictated by: Mathew Laurent MD The radiology attending physician has personally reviewed this study, and had reviewed and/or edited this written report and agrees with it. Electronically signed by: Joon Banks M.D, PHD Narrative 03/17/2025 1:55 PM CDT EXAMINATION: CT of the neck with contrast HISTORY: Tongue squamous cell carcinoma. Post left partial glossectomy. TECHNIQUE: CT of the neck was performed according to the standard protocol with intravenous contrast. Contrast information: 69 mL Optiray-350 IV COMPARISON: Same day PET/CT FDG FINDINGS: Status post left partial glossectomy , left digastric muscle flap for closure of pharyngotomy and left neck miguel dissection. Scattered subcentimeter lymph nodes are seen in the neck. None are pathologically enlarged or abnormally enhancing. The muscles of the neck are normal. Vessels of the neck demonstrate normal course and caliber. Fascial planes are preserved and the deep spaces of the neck are normal. The visualized airway is widely patent. The base of the skull and the temporal bones are normal. Limited views of the brain including the cerebellum and brainstem are normal. The limited view of the [place] is unremarkable. The visualized portions of the orbits are normal. Intraocular lens replacement. Bilateral subcentimeter hypodense thyroid nodules seen on image 159 and 145 of sequence 11 measuring up to 6 mm. Limited examination of the superior thorax shows no pulmonary infiltrate, suspicious nodules, or pleural effusions. Postoperative changes seen in the right humeral head and right acromion. Multilevel cervicothoracic spine degenerative spondylosis. No suspicious osseous lesion. Minimal mucosal thickening in the right maxillary sinus. Procedure Note Joon Banks MD PhD - 03/17/2025 EXAMINATION: CT of the neck with contrast HISTORY: Tongue squamous cell carcinoma. Post left partial glossectomy. TECHNIQUE: CT of the neck was performed according to the standard protocol with intravenous contrast. Contrast information: 69 mL Optiray-350 IV COMPARISON: Same day PET/CT FDG FINDINGS: Status post left partial glossectomy , left digastric muscle flap for closure of pharyngotomy and left neck miguel dissection. Scattered subcentimeter lymph nodes are seen in the neck. None are pathologically enlarged or abnormally enhancing. The muscles of the neck are normal. Vessels of the neck demonstrate normal course and caliber. Fascial planes are preserved and the deep spaces of the neck are normal. The visualized airway is widely patent. The base of the skull and the temporal bones are normal. Limited views of the brain including the cerebellum and brainstem are normal. The limited view of the [place] is unremarkable. The visualized portions of the orbits are normal. Intraocular lens replacement. Bilateral subcentimeter hypodense thyroid nodules seen on image 159 and 145 of sequence 11 measuring up to 6 mm. Limited examination of the superior thorax shows no pulmonary infiltrate, suspicious nodules, or pleural effusions. Postoperative changes seen in the right humeral head and right acromion. Multilevel cervicothoracic spine degenerative spondylosis. No suspicious osseous lesion. Minimal mucosal thickening in the right maxillary sinus. IMPRESSION: Status post left partial glossectomy , muscle flap and left neck miguel dissection. No evidence of local disease recurrence. No neck lymphadenopathy. Dictated by: Mathew Laurent MD The radiology attending physician has personally reviewed this study, and had reviewed and/or edited this written report and agrees with it. Electronically signed by: Joon Banks M.D, PHD Julienne PHAN IM CT PROCEDURES Final Result * Surgical pathology (03/03/2025 10:14 AM CDT) Tissue (Tongue, Biopsy) 03/03/2025 10:14 AM CDT 03/03/2025 2:27 PM CDT Narrative PATHOLOGY [facility] - 03/09/2025 5:33 PM CDT EPIC results best viewed via link to PDF [facility] [place] [address] Note to Patients: This report may contain a detailed description of human tissue sent by a health care provider to the laboratory for pathologic evaluation. The content of this report is essential for diagnosis and may provide important critical findings. This information may be unfamiliar to patients to review without a medical professional present. It is advised that the patient review this report in the presence of a health care provider who can answer questions and explain the details. SURGICAL PATHOLOGY REPORT FINAL Patient Name: KEERTHI KIMBALL Gender: F : 1945 (Age: 79) Address: [address] [place] [id number] Hospital #: [id number] Taken:03/03/2025 Received:03/03/2025 Reported: 03/09/2025 Patient Type: [facility] SPECIMEN Service: Laboratory Location: Physician(s): NIKITA Ortega Diagnosis: Oral cavity, left lateral tongue, biopsy: - Moderately-poorly differentiated squamous cell carcinoma, arising in the setting of severe dysplasia kes/03/09/2025 17:33 By this signature, I attest that the above diagnosis is based upon my personal examination of the slides(and/or other material indicated in the diagnosis). Shona Mckee MD, PhD Report Electronically Reviewed and Signed Out By Shona Mckee MD, PhD 03/09/2025 17:33:55 History: The patient is a 79-year-old woman presenting with a history of tongue SCCA, new tongue lesion. Operative procedure: Left lateral oral tongue biopsy. Specimen(s) Received: A: Left lateral oral tongue Gross Description: Received in formalin labeled with the patient's name and date of and consists of multiple kim-pink fragments of soft tissue with an aggregate measurement of 0.8 x 0.5 x 0.1 cm. Labeled A1. Jar [facility]. [facility]/03/03/2025 15:57 PA(s): Viviana Ramires By this signature, I attest that the above diagnosis is based upon my personal examination of the slides(and/or other material). Addenda/Procedures The performance characteristics of some immunohistochemical stains, fluorescence in-situ hybridization tests and immunophenotyping by flow cytometry cited in this report (if any) were determined by the Surgical Pathology and Flow Cytometry Departments at [facility] as part of an ongoing quality liaison program and in compliance with federally mandated regulations drawn from the Clinical Laboratory Improvement Act of 1988 (CLIA '88). Some of these tests rely on the use of analyte specific reagents and are subject to specific labeling requirements by the US Food and Drug Administration. Such diagnostic tests may only be performed in a facility that is certified by the Department of Health and Human Services as a high complexity laboratory under CLIA '88. The FDA has determined that such clearance or approval is not necessary. This test is used for clinical purposes. It should not be regarded as investigational or for research. Nevertheless, federal rules concerning the medical use of analyte specific reagents require that the following disclaimer be attached to the report: This test was developed and its performance characteristics determined by the Surgical Pathology and Flow Cytometry Departments of [facility]. It has not been cleared or approved by the U. S. Food and Drug Administration. IMAGES AND SCANNED DOCUMENTS, IF INCLUDED, ONLY VIEWABLE IN PDF VERSION OF REPORT Julienne PHAN LAB PATHOLOGY ORDERABLE S Final Result PATHOLOGY [facility] 3rd Floor [place], [place] [phone] * Diagnostic Mammogram Bilateral W Trevor (09/21/2024 [...] Cholesterol 145 30 - 199 mg/dL [facility] Comment: Interpretive Data Ages < [...] revised on 2018. Triglycerides 71 <=149 mg/dL [facility] Comment: Interpretive Data Ages < [...] revised on 2018. HDL 52 >=40 mg/dL [facility] Comment: Interpretive Data Ages < [...] on 2018. LDL, calculated 79 <=129 mg/dL [facility] Comment: Interpretive Data Ages < or [...] revised on 2018. Non-HDL Cholesterol 93 mg/dL [facility] Comment: Interpretive Data Ages < or [...] last revised on 2018. Chol/HDL ratio 3 [facility] Blood 10/15/2022 4:18 PM CDT 10/15/2022 4:57 PM CDT Lola Israel MD LAB BLOOD ORDERABLES Fin al Result [facility] Department [place] [address] * Dexa Axial Skeleton Bone Density 1 or 2 Site (09/27/2022 8:33 AM CDT) Anatomical Region Laterality Modality Body N/A Radiographic Maggie ging Narrative 10/01/2022 4:27 PM CDT Patient Name: Keerthi Kimball Date of : 1945 Date of scan: 09/27/2022 Bone mineral density was performed on a HoloBest Five Reviewed Discovery Densitometer. Based on machine cross-calibration and [...] by the International Society of Clinical Densitometry. [id number] Lola Israel MD IMG DXA PROCEDURES Final Result * COLONOSCOPY REPORT (03/06/2017) Anatomical Region Laterality Modality Other Provider Scanning GI PROCEDURE ORDERABLES Final Result from Last 3 Months or Most Recently Relevant to Health Maintenance Insurance [facility] Advance Directives For more information, please contact: [phone] * Full Code (Latest Code Status on File) Date Activated Date Inactivated Comments 03/30/2025 7:35 PM 03/31/2025 2:12 PM Care Teams Community Service Worker Relationship Specialty Start Date End Date Shaun Farias MD [address] [place] [address] PCP - General Emergency Medicine 12/02/24 Melissa Jeff NP [address] [address] Nurse Practitioner Nurse Practitioner 09/12/22 Samm Canas MD [address] [id number] Referring Physician Hematology 09/12/22 Dandre Garrido MD [address] [place] [address] Radiation Oncologist Radiation Oncology 09/27/22 Franci Gilliam, PhD [address] [facility] [address] [place] [address] Nurse Practitioner Radiation Oncology 10/23/22 Linda Pichardo MD [address] [facility] [address] [place] [address] Surgeon Breast Surgery 02/05/23 Medina Martínez LCSW Auger Supervisor 03/12/25 Jame Godfrey MD PhD [address] [facility] MEDICAL ONCOLOGY, [address] [address] Consulting Physician Medical Oncology 03/12/25 Orlando Sigala MD [address] [facility] DEPT OTOLARYNGOLOGY, [address] [address] Consulting Physician Otolaryngology 03/12/25 Loreta Mckenna MD [address] [facility] [address] [place] [address] Radiation Oncologist Radiation Oncology 03/12/25
--- OUTSIDE RECORDS SUMMARY | 2025-05-24 11:15 | XMS_ITS | Encounter Summary ---
Author Organization [facility] Address [address] [place] [address] Care Team Providers Care Corporate Technical Recruiter Name Role Phone Susan Montemayor MD Primary Care Provider Encounter Details Date Type Department Care Team (Late Contact Info) Description 08/01/1999 Outpatient Historical [facility] Internal Medicine [address] [place] [address] Hyun Romo MD [address] [address] Social History Tobacco Use Types Packs/Day Years Used Date Smoking Tobacco: Never Assessed Comments Unknown Sex and Gender Information Value Date Recorded Sex Assigned at Not on file Legal Sex Female 4:40 AM CHILD DEVELOPMENT DIRECTOR Gender Identity Not on file Sexual Orientation Not on file documented as of this encounter Plan of Treatment Upcoming Encounters Date Type Department Care Team (Late st Contact Info) Description 07/23/2025 9:15 AM CHILD DEVELOPMENT DIRECTOR Office Visit [facility] Oncology and Hematology - [place] [address] [facility] [address] [place] [address] Samm Canas MD [address] [facility] [address] [place] [address] documented as of this encounter Visit Diagnoses Not on filedocumented in this encounter Care Teams Corporate Technical Recruiter Relationship Specialty Start Date End Date Susan Montemayor MD [facility] [address] [place] [address] PCP - General Family Practice 07/27/24 documented as of this encounter
--- OUTSIDE RECORDS SUMMARY | 2025-05-24 11:15 | XMS_ITS | Encounter Summary ---
Author Organization [facility] Address [address] [place] [address] Care Team Providers Care Air Launch Weapons Technician Name Role Phone Susan Montemayor MD Primary Care Provider [phone] Encounter Details Date Type Department Care Team (Late Contact Info) Description 07/03/1999 Outpatient Historical [facility] Internal Medicine [address] [place] [address] Hyun Romo MD [address] [address] Social History Tobacco Use Types Packs/Day Years Used Date Smoking Tobacco: Never Assessed Comments Unknown Sex and Gender Information Value Date Recorded Sex Assigned at Not on file Legal Sex Female 4:40 AM INFORMATION TECHNOLOGY PROJECT MANAGER Gender Identity Not on file Sexual Orientation Not on file documented as of this encounter Plan of Treatment Upcoming Encounters Date Type Department Care Team (Late st Contact Info) Description 07/23/2025 9:15 AM INFORMATION TECHNOLOGY PROJECT MANAGER Office Visit [facility] Oncology and Hematology - [place] [address] [facility] [address] [place] [address] Samm Canas MD [address] [facility] [address] [place] [address] documented as of this encounter Visit Diagnoses Not on filedocumented in this encounter Care Teams Air Launch Weapons Technician Relationship Specialty Start Date End Date Susan Montemayor MD [facility]7 [facility] [address] [place] [address] PCP - General Family Practice 07/27/24 documented as of this encounter
[2025-05-24 14:25] LABS: Alanine Aminotransferase 10 U/L (6-35); Albumin Level 3.9 g/dL (3.5-5.1); Alkaline Phosphatase 75 U/L (38-126); Anion Gap 5 mmol/L (4-12); Aspartate Amino Transferase 29 U/L (14-36); Bilirubin,Total 0.5 mg/dL (0.2-1.3); Blood Urea Nitrogen 22 mg/dL (7-17); Calcium 9.6 mg/dL (8.4-10.2); Carbon Dioxide 29 mmol/L (22-30); Chloride 105 mmol/L (98-107); Cholesterol 158 mg/dL (0-200); Estimated Glomerular Filt Rate 47; Glucose 179 mg/dL (65-110); HDL Direct 49 mg/dL; Potassium 4.2 mmol/L (3.4-5.0); Sodium 139 mmol/L (137-145); Total Protein 7.3 g/dL (6.3-8.2); Triglycerides 93 mg/dL (<150)
[2025-05-24 14:52] LABS: MALB Creatinine Ratio 6.3 mg/g (0-30)
[2025-05-24 17:44] LABS: Hemoglobin A1C 8.2 % (<5.7)
== END 2025-05-24 10:44 | disposition home or self-care (01) ==
LOC: ANHLAB 10:44
PROVIDERS: PCP Emergency Medicine; Visit Provider Emergency Medicine
DX: E11.9 Type 2 diabetes mellitus without complications (principal); E55.9 Vitamin D deficiency, unspecified; E78.5 Hyperlipidemia, unspecified
CPT/HCPCS: 36415; 80053; 80061; 82043; 82306; 83036